=== PATIENT | male | born 2000 | race Caucasian/White ===

== ENCOUNTER 2023-05-18 09:48 | Emergency (ER) | payer OTHER, SELFPAY ==
--- NOTE | ~2023-05-18 | XR_ITS ---
EXAMINATION: XR CHEST CLINICAL INFORMATION: Chest pain. COMPARISON: None available. TECHNIQUE: 2 views of the chest were obtained. FINDINGS: No significant abnormality is noted involving the heart, lungs, mediastinum, bony thorax or soft tissues. XR/XR chest 2V IMPRESSION: No acute cardiopulmonary process.
--- NOTE | 2023-05-18 09:49 | ECG_ITS ---
Test Reason : cp Blood Pressure : / mmHG Vent. Rate : 068 BPM Atrial Rate : 068 BPM P-R Int : 154 ms QRS Dur : 086 ms QT Int : 354 ms P-R-T Axes : 059 026 030 degrees QTc Int : 376 ms Poor data quality, interpretation may be adversely affected Normal sinus rhythm with sinus arrhythmia Normal ECG No previous ECGs available Referred By: Generic ED Physician Electronically Signed By:LUIS SANDOVAL
[2023-05-18 09:54] VITALS: BP 129/71; PULSE 76; RESP 18; TEMP 37.2; O2SAT 98; BMI 29.2
--- NOTE | 2023-05-18 10:56 | ED_ITS ---
HPI - Chest Pain General Chief Complaint: Chest Pain Stated Complaint: Chest Pain Radiating to Back Time Seen by Provider: 05/18/23 10:48 Source: patient Mode of arrival: ambulatory Limitations: no limitations History of Present Illness HPI narrative: 23 yo male healthy here left-sided chest pain which is constant since yesterday with radiation to the left upper back which is worsened with breathing, movement. It is improved with sitting upright and leaning forward and worsened with lying down flat. There is no associated cough, shortness of breath, abdominal pain, fever, vomiting. Patient reports he had this pain 2 weeks ago and was seen at [facility] and had a normal EKG and was discharged home. Patient reports pain got better but now returned. He denies any recent travel, recent surgeries, recent sick contact. No leg swelling or leg pain. No history of DVT or PE Related Data Previous Rx's Medication Instructions Recorded ibuprofen 600 mg tablet 600 mg PO TID PRN pain #30 tabs 05/18/23 Allergies Allergy/AdvReac Type Severity Reaction Status Date / Time Unable to Assess Allergy Verified 05/18/23 10:55 Review of Systems Review of Systems: Yes all other systems are reviewed and are negative Constitutional: Constitutional: Reports no additional constitutional complaints, Denies body ache(s), Denies chills, Denies fever(s), Denies headache(s) and Denies weakness Eyes: Eyes: Reports no additional eye complaints and Denies change in vision ENT: Reports system reviewed and no additional complaints, except as documented, Denies dizziness, Denies headache(s), Denies nasal congestion, Denies nasal discharge and Denies neck pain Cardiovascular: Cardiovascular: Reports no additional cardiovascular complaints, Reports chest pain, Denies leg edema and Denies dyspnea Respiratory: Respiratory: Reports no additional respiratory complaints, Denies cough and Denies dyspnea Gastrointestinal: Gastrointestinal: Reports no additional gastrointestinal complaints, Denies abdominal pain, Denies diarrhea, Denies nausea and Denies vomiting Genitourinary: Genitourinary: Denies urinary incontinence Musculoskeletal: Musculoskeletal: Reports no additional musculoskeletal complaints, Reports back pain, Denies arthralgias, Denies joint swelling, Denies neck pain, Denies numbness and Denies tingling Integumentary/Breasts: Skin/Breast: Reports system reviewed and no additional complaints, except as docu and Denies rash Neurologic: Reports system reviewed and no additional complaints, except as documented, Denies Abnormal speech present, Denies dizziness, Denies headache(s), Denies numbness, Denies tingling and Denies weakness PMFSH Past Medical History Attestation statement: The following information was validated with the patient. Source: old records reviewed and nursing notes reviewed Social History Social History Alcohol intake: never Smoked in Last 30 Days: Yes Use of substances other than those prescribed or required for medical reasons: No Advance Directives: No Advance Directives Information Provided: No Physical Exam Vital Signs: Vital Signs: Last Vital Signs Temp 98.4 F 05/18/23 11:38 Pulse 65 05/18/23 11:38 Resp 16 05/18/23 11:38 BP 124/72 05/18/23 11:38 Pulse Ox 98 05/18/23 11:38 O2 Del Method Room Air 05/18/23 11:38 BMI result Body Mass Index 29.2 Const: General: cooperative, healthy appearing, comfortable and no acute distress Orientation/consciousness: patient oriented x3 Limitations: no limitations HEENT: Head: Yes normal to inspection Ears: hearing grossly normal bilaterally General nose exam: Normal external nose present Face and sinus: Yes normal facial exam Mouth: Normal oral and palatal mucosa present Throat: Yes posterior oropharynx normal Eyes: General: appearance normal, both eyes and all related structures Pupils: Equal, round and reactive pupils present Neck: Neck: Yes normal visual inspection Chest: Chest palpation & inspection: normal inspection of the chest and tenderness (left chest tender to palp, worsened with breathing.movement ) Resp: Effort & Inspection: normal respiratory effort Auscultation: clear to auscultation bilaterally Cardio: Rate: regular rate Rhythm: regular rhythm Peripheral pulses: Peripheral pulses 2+ throughout GI: Inspection: Yes normal to inspection Palpation (GI): Soft to palpation and nontender Auscultation: normal bowel sounds Back/Spine/Pelvis: Thoracic/Lumbar Spine: thoracic and lumbar spine normal to inspection Skin: General skin exam: no rashes or lesions noted Neuro: General: patient oriented x3, no focal motor deficits and normal sensation to monofilament Cranial nerves: Yes Equal, round and reactive pupils present Cognition (Neuro): normal cognition Speech: No Abnormal speech present Gait exam (Neuro): Normal gait present Motor exam (neuro): 02/04 motor strength present throughout Extrem: General: Yes normal to inspection, Yes no pedal edema and Yes no calf tenderness Course Course Course Narrative: Labs are unremarkable. EKG is nonischemic. Chest x-ray shows no acute finding. Likely musculoskeletal. Patient will be discharged home with NSAID for a few days with recommendations to follow-up with his primary care doctor outpatient. Reviewed worrisome signs and symptoms of when to return to the emergency room. Comfortable plan for discharge home. Medical Decision Making Medical Decision Making [facility] Narrative: 23 yo male with no known medical history here with complaints of left sided chest pain with radiation to the left upper back worsened with deep breathing, movement and palpation since yesterday with no other associated symptom Exam is benign. Lungs clear. Vital stable. Pain is worsened with palpation, movement the extremity and deep breathing on exam. Likely musculoskeletal Will check labs, EKG, chest X Differential Diagnosis Differential Diagnoses: The differential diagnosis associated with the presentation includes Pericarditis, myocarditis Acs-HPI is not typical for ACS, troponin is flat, EKG is not ischemic-low concern Musculoskeletal pain Low concern for PE with perc 0 Admission/Observation Consideration of admission/observation: Escalation of care including admission/observation considered Heart score is 0-need for admission for further management Lab Data [facility] Lab Attestation statement: I reviewed the patient's lab results. 05/18/23 11:16 05/18/23 11:16 Labs: Lab Results 05/18/23 05/18/23 05/18/23 Range/Units 11:16 11:16 11:16 WBC 6.6 (4.8-10.8) X10*3/uL RBC 5.19 (4.60-5.80) X10*6/uL Hgb 14.8 (14.0-18.0) g/dl Hct 44.7 (42.0-52.0) % MCV 86.1 (80.0-98.0) fL MCH 28.5 (27.0-33.0) pg MCHC 33.1 (31.0-36.0) g/dl RDW 12.9 (11.0-16.0) % Plt Count 194 (160-400) X10*3/uL MPV 10.3 (9.4-12.4) fL Immature Gran % (Auto) 0.3 (0.0-0.4) % Neut % (Auto) 55.8 (45-73) % Lymph % (Auto) 33.0 (20-40) % Reeves % (Auto) 9.2 (2-11) % Eos % (Auto) 1.4 (0-4) % Baso % (Auto) 0.3 (0-2) % Lymph # (Auto) 2.2 (1.2-4.9) X10*3/uL Reeves # (Auto) 0.6 (0.1-1.2) X10*3/uL Eos # (Auto) 0.1 (0.0-0.4) X10*3/uL Baso # (Auto) 0.0 (0.0-0.2) X10*3/uL Abs Immat Gran (auto) 0.02 (0.00-0.03) X10*3/uL Absolute Neuts (auto) 3.7 (2.0-8.3) x10*3/uL Absolute Nucleated RBC 0.000 (0.0-0.012) X10*3/uL Nucleated RBC % (auto) 0.0 (0.0-0.2) /100WBC PT 10.0 L (11.1-13.3) SEC INR 0.8 L (0.9-1.1) Sodium 142 (135-145) mmol/L Potassium 4.5 (3.3-5.1) mmol/L Chloride 108 (96-108) mmol/L Carbon Dioxide 27 (22-29) mmol/L Anion Gap 12 (12-20) BUN 12 (9-16) mg/dL Creatinine 0.77 (0.5-1.4) mg/dL Estim Creat Clear Calc 132.9 Estimated GFR > 60 Random Glucose 103 (60-115) mg/dL Calcium 9.7 (8.4-10.2) mg/dL Total Bilirubin 0.2 (0.0-1.0) mg/dL Direct Bilirubin < 0.2 (0.0-0.5) mg/dL AST 26 (5-37) U/L ALT 26 (0-40) U/L Alkaline Phosphatase 57 (39-117) U/L Troponin I High Sens (<3.5-35.0) ng/L Total Protein 7.2 (6.5-8.0) g/dL Albumin 4.2 (3.5-5.0) g/dL 05/18/23 Range/Units 11:16 WBC (4.8-10.8) X10*3/uL RBC (4.60-5.80) X10*6/uL Hgb (14.0-18.0) g/dl Hct (42.0-52.0) % MCV (80.0-98.0) fL MCH (27.0-33.0) pg MCHC (31.0-36.0) g/dl RDW (11.0-16.0) % Plt Count (160-400) X10*3/uL MPV (9.4-12.4) fL Immature Gran % (Auto) (0.0-0.4) % Neut % (Auto) (45-73) % Lymph % (Auto) (20-40) % Reeves % (Auto) (2-11) % Eos % (Auto) (0-4) % Baso % (Auto) (0-2) % Lymph # (Auto) (1.2-4.9) X10*3/uL Reeves # (Auto) (0.1-1.2) X10*3/uL Eos # (Auto) (0.0-0.4) X10*3/uL Baso # (Auto) (0.0-0.2) X10*3/uL Abs Immat Gran (auto) (0.00-0.03) X10*3/uL Absolute Neuts (auto) (2.0-8.3) x10*3/uL Absolute Nucleated RBC (0.0-0.012) X10*3/uL Nucleated RBC % (auto) (0.0-0.2) /100WBC PT (11.1-13.3) SEC INR (0.9-1.1) Sodium (135-145) mmol/L Potassium (3.3-5.1) mmol/L Chloride (96-108) mmol/L Carbon Dioxide (22-29) mmol/L Anion Gap (12-20) BUN (9-16) mg/dL Creatinine (0.5-1.4) mg/dL Estim Creat Clear Calc Estimated GFR Random Glucose (60-115) mg/dL Calcium (8.4-10.2) mg/dL Total Bilirubin (0.0-1.0) mg/dL Direct Bilirubin (0.0-0.5) mg/dL AST (5-37) U/L ALT (0-40) U/L Alkaline Phosphatase (39-117) U/L Troponin I High Sens 2.8 (<3.5-35.0) ng/L Total Protein (6.5-8.0) g/dL Albumin (3.5-5.0) g/dL Independent Interpretation I performed an independent interpretation of an: EKG and Plain X-Ray Interpretation: I independetely reviewed the EKG shows normal sinus rhythm with rate of 68, normal DC, normal QRS, normal QT I independeytelt reviewed the x-ray and agreed with radiology report Radiology Impression Discussion of test interpretation with radiology: I have reviewed the radiologist's reading. Radiologist Impression: [place] [id number] XRay Report Signed Patient: Morales Monge MR#: [id number] : 2000 Acct:[id number] Age/Sex: 23 / M ADM Date: 05/18/23 Loc: .ED Attending Dr: Ordering Physician: Nohemi Merlos NP Date of Service: 05/18/23 Procedure(s): XR chest 2V Accession Number(s): [id number] cc: Nohemi Merlos NP~ EXAMINATION: XR CHEST CLINICAL INFORMATION: Chest pain. COMPARISON: None available. TECHNIQUE: 2 views of the chest were obtained. FINDINGS: No significant abnormality is noted involving the heart, lungs, mediastinum, bony thorax or soft tissues. XR/XR chest 2V IMPRESSION: No acute cardiopulmonary process. Discharge Plan Discharge Clinical Impression: Chest pain Patient Disposition: Home, Self-Care Instructions: Chest Pain (ED) Additional Instructions: Your blood work, chest x-ray and EKG are reassuring Follow-up with primary care doctor for any continued symptoms. Return for any worsening symptoms. Prescriptions: New ibuprofen 600 mg tablet 600 mg PO TID PRN (Reason: pain) Qty: 30 0RF Referrals: Amado Olson, NAIN [Primary Care Provider] - 1 week
--- NOTE | 2023-05-18 11:01 | PC.NURSE ---
pt amb (I) gait steady to xray dept.
[2023-05-18 11:21] LABS: Basophils Percent Auto 0.3 % (0-2); Eosinophils Absolute Auto 0.1 X10*3/uL (0.0-0.4); Eosinophils Percent Auto 1.4 % (0-4); Hematocrit 44.7 % (42.0-52.0); Hemoglobin 14.8 g/dl (14.0-18.0); Imm Gran Abs Auto 0.02 X10*3/uL (0.00-0.03); Imm Gran Pct Auto 0.3 % (0.0-0.4); Lymphocytes Absolute Auto 2.2 X10*3/uL (1.2-4.9); MANUAL DIFF FLAG NO; Mean Corpuscular HGB Conc 33.1 g/dl (31.0-36.0); Mean Corpuscular Hemoglobin 28.5 pg (27.0-33.0); Mean Corpuscular Volume 86.1 fL (80.0-98.0); Mean Platelet Volume 10.3 fL (9.4-12.4); Monocytes Absolute Auto 0.6 X10*3/uL (0.1-1.2); Monocytes Percent Auto 9.2 % (2-11); Neutrophils Absolute Auto 3.7 x10*3/uL (2.0-8.3); Neutrophils Percent Auto 55.8 % (45-73); Platelet Count 194 X10*3/uL (160-400); Red Blood Count 5.19 X10*6/uL (4.60-5.80); Red Cell Distribution Width 12.9 % (11.0-16.0); White Blood Count 6.6 X10*3/uL (4.8-10.8)
[2023-05-18 11:36] LABS: Alanine Aminotransferase 26 U/L (0-40); Albumin Level 4.2 g/dL (3.5-5.0); Alkaline Phosphatase 57 U/L (39-117); Anion Gap 12 (12-20); Aspartate Amino Transferase 26 U/L (5-37); Bilirubin Direct < 0.2 mg/dL (0.0-0.5); Bilirubin Total 0.2 mg/dL (0.0-1.0); Blood Urea Nitrogen 12 mg/dL (9-16); Calcium 9.7 mg/dL (8.4-10.2); Carbon Dioxide 27 mmol/L (22-29); Chloride 108 mmol/L (96-108); Creatinine Clr Calc Pharmacy 132.9; Estimated Glomerular Filt Rate > 60; Glucose Random 103 mg/dL (60-115); Potassium 4.5 mmol/L (3.3-5.1); Sodium 142 mmol/L (135-145); Total Protein 7.2 g/dL (6.5-8.0)
[2023-05-18 11:38] VITALS: BP 124/72; PULSE 65; RESP 16; TEMP 36.9; O2SAT 98
[2023-05-18 11:42] LABS: Troponin-I High Sensitivity 2.8 ng/L (<3.5-35.0)
[2023-05-18 11:52] LABS: INTERNATIONAL NORM RATIO 0.8 (0.9-1.1)
[2023-05-18 12:23] VITALS: BP 120/77; PULSE 54; RESP 16; TEMP 36.5; O2SAT 99
== END 2023-05-18 12:38 | disposition home or self-care (01) ==
PROVIDERS: Nurse Practitioner Family; Emergency Provider Emergency Medicine; PCP Nurse Practitioner Family
DX: R07.89 Other chest pain (principal); M54.50 Low back pain, unspecified; I49.8 Other specified cardiac arrhythmias; Z79.899 Other long term (current) drug therapy
CPT/HCPCS: 36415; 71046; 80048; 80076; 84484; 85025; 85610; 93005; 99284

== ENCOUNTER 2023-06-16 10:12 | Emergency (ER) | payer OTHER, SELFPAY ==
--- NOTE | 2023-06-16 10:31 | PC.NURSE ---
no answer in [facility] x 3 , ist attempt 2-3 min after his arrival
== END 2023-06-16 10:39 | disposition left against medical advice (07) ==
PROVIDERS: Emergency Provider Emergency Medicine
DX: L98.9 Disorder of the skin and subcutaneous tissue, unspecified (principal)

== ENCOUNTER 2023-09-12 16:30 | Emergency (ER) | payer OTHER, SELFPAY ==
[2023-09-12 16:35] VITALS: BP 128/68; BP 158/85; PULSE 81; PULSE 98; RESP 18; TEMP 36.6; O2SAT 98; BMI 30.1
--- NOTE | 2023-09-12 16:42 | ECG_ITS ---
Test Reason : qtc evaluation Blood Pressure : / mmHG Vent. Rate : 068 BPM Atrial Rate : 068 BPM P-R Int : 138 ms QRS Dur : 084 ms QT Int : 362 ms P-R-T Axes : 047 029 033 degrees QTc Int : 384 ms Normal sinus rhythm Normal ECG When compared with ECG of 18-MAY-2023 09:52, No significant change was found Referred By: Jayleen Sotelo Electronically Signed By:Alexis Shukla
--- NOTE | 2023-09-12 16:45 | ED_ITS ---
HPI - Nausea/Vomiting/Diarrhea General Chief complaint: Abdominal Pain Stated complaint: COFFEE GROUND EMESIS [id number] Source: patient and old records reviewed Mode of arrival: EMS Limitations: no limitations History of Present Illness HPI Narrative: 23 yo male with PMH of cyclical vomiting syndrome and ETOH abuse thous states he hasn't been drinking for months - he notes he went to [place] on Tuesday for vomiting and was treated with fluids and nausea medications told it was THC induced though he states he hasn't smoked in 2 weeks. He notes he has been vomiting so hard it is brown in nature but no norris blood. No lower symptoms reported. He does not take PPI/H2 ignacio and no NSAIDs. He does not see a GI doctor. Was given fluids and 4mg zofran by EMS no improvement MD elicited complaint: nausea, vomiting, diarrhea and abdominal pain Pertinent past history: cyclical vomiting Onset (ago): day(s) (2) Description of vomiting: watery and coffee grounds Description of diarrhea: watery Associated nausea: Yes Associated abdominal pain: Yes Location of pain: epigastric Radiation: diffuse Pain consistency: constant Severity: moderate Quality: stabbing Exacerbating factors: eating Relieving factors: none Context: marijuana use and other (hx of similar episodes) Associated symptoms: loss of appetite, malaise and nausea/vomiting Treatment prior to arrival: fluids and other (zofran) Related Data Previous Rx's Medication Instructions Recorded ibuprofen 600 mg tablet 600 mg PO TID PRN pain #30 tabs 05/18/23 lorazepam 1 mg tablet (Ativan) 1 mg PO BID PRN anxiety #12 tabs 09/12/23 metoclopramide HCl 10 mg tablet 10 mg PO Q6H PRN nausea and 09/12/23 (Reglan) vomiting #30 tabs omeprazole 20 mg capsule,delayed 20 mg PO BID #28 caps 09/12/23 release ondansetron 4 mg disintegrating 4 mg PO Q8H PRN nausea and 09/12/23 tablet vomiting #20 tabs Allergies Allergy/AdvReac Type Severity Reaction Status Date / Time No Known Allergies Allergy Verified 09/12/23 16:41 Review of Systems 2 Review of Systems: Constitutional : No Weight loss, No Fever, No Chills ENT/Mouth : No sore throat, No Rhinorrhea Eyes: No Swelling, No Redness Cardiovascular : No Chest Pain, No SOB, NoEdema Respiratory : No Cough, No Sputum, No Wheezing Gastrointestinal : Positive Nausea, Positive Vomiting, positive Diarrhea, positive abdominal Pain, No Hematochezia, No Melena Genitourinary : No Dysuria, No Urinary Frequency, No Hematuria, No Urgency Musculoskeletal : No joint pain, No Myalgias, No Joint Swelling Skin : No Skin Lesions, No rash Neuro : No Weakness, No Numbness, No Dizziness, No Headache Psych : No Anxiety/Panic, No Depression Heme/Lymph: No Bruising, No Lymphadenopathy Endocrine : No Polyuria, No Polydipsia All other systems reviewed and are negative. Gastrointestinal: Gastrointestinal: Reports nausea PMFSH Past Medical History Attestation statement: The following information was validated with the patient. Source: old records reviewed Medical History Cyclical vomiting Social History Social History Alcohol intake: former Patient Tobacco Use Status: Tobacco use Unknown Substance Use Type: Marijuana Advance Directives: No Advance Directives Information Provided: Yes Physical Exam 2 Vital Signs: Vital Signs: Last Vital Signs Temp 97.8 F 09/12/23 16:35 Pulse 81 09/12/23 16:35 Resp 18 09/12/23 16:35 BP 158/85 H 09/12/23 16:35 Pulse Ox 98 09/12/23 16:35 O2 Del Method Room Air 09/12/23 16:35 BMI result Body Mass Index 30.1 Appearance: Alert. Oriented X3. No acute distress. Very forced dry heaving then spits up scant thick brown mucous no norris blood - his heaving is very forced in nature and starts with a forced cough Eyes: Pupils equal, round and reactive to light. ENT: Pharynx normal. Neck: Normal inspection. Neck supple. CVS: Normal heart rate and rhythm. Pulses normal. Respiratory: No respiratory distress. Breath sounds normal. Abdomen: Soft and nontender. Skin: Skin warm and dry. Normal skin color. Normal skin turgor. Extremities: No lower extremity edema. No calf ttp Neuro: Oriented X 3. No motor deficit. No sensory deficit. Course Course Course Narrative: H/H stable at 2 days of coffee ground emesis doubt sig GI bleed - + THC suspect THC induced emesis Reevaluation(s) Reevaluation #1: feels much better VS stable, at this time can be DC discussed with him and father Medications Administered Discontinued Medications Generic Name Dose Route Start Last Admin Trade Name Brenda PRN Reason Stop Dose Admin Diphenhydramine HCl 25 mg 09/12/23 16:42 09/12/23 16:54 Diphenhydramine Hcl 50 Mg/Ml Vial IVPUSH 09/12/23 16:43 25 mg ONCE ONE Administration Droperidol 1.25 mg 09/12/23 16:42 09/12/23 16:54 Droperidol 5 Mg/2 Ml Vial IVPUSH 09/12/23 16:43 1.25 mg ONCE ONE Administration Sodium Chloride 1,000 mls @ 999 mls/hr 09/12/23 16:45 09/12/23 18:45 Ns IVCONT 09/12/23 18:45 Infused .Q1H1M NICANOR Infusion Pantoprazole Sodium 40 mg 09/12/23 16:42 09/12/23 16:54 Pantoprazole Sodium 40 Mg/10 Ml Vial IVPUSH 09/12/23 16:43 40 mg ONCE ONE Administration Potassium Chloride 40 meq 09/12/23 17:52 09/12/23 18:45 Potassium Chloride Packet 20 Meq Packet PO 09/12/23 17:53 40 meq ONCE ONE Administration Medical Decision Making Medical Decision Making [facility] Narrative: 23 yo male with PMH of ETOH abuse and THC use - comes in with c/o n/v and upper abdominal pain with coffee ground emesis reported it is very scant on arrival. He has no norris blood and to be honest the wretching is forced and violent. I have ordered labs, protonix. EKG and IV benadryl and droperidol. He has had this before and I do not suspect acute intrabdominal pathology or rupture. Differential Diagnosis Differential Diagnoses: The differential diagnosis associated with the presentation includes gastritis, tarsha roldan, ETOH abuse, anxiety, THC cyclical vomiting syndrome Admission/Observation Consideration of admission/observation: Escalation of care including admission/observation considered H/H stable, VS stable, feels better can be DC home Lab Data MDM Lab Attestation statement: I reviewed the patient's lab results. 09/12/23 17:26 09/12/23 17:26 Labs: Lab Results 09/12/23 09/12/23 09/12/23 Range/Units 16:42 17:26 18:22 WBC 12.9 H (4.8-10.8) X10*3/uL RBC 5.16 (4.60-5.80) X10*6/uL Hgb 14.8 (14.0-18.0) g/dl Hct 43.4 (42.0-52.0) % MCV 84.1 (80.0-98.0) fL MCH 28.7 (27.0-33.0) pg MCHC 34.1 (31.0-36.0) g/dl RDW 12.3 (11.0-16.0) % Plt Count 219 (160-400) X10*3/uL MPV 11.1 (9.4-12.4) fL Immature Gran % (Auto) 0.4 (0.0-0.4) % Neut % (Auto) 78.8 H (45-73) % Lymph % (Auto) 12.4 L (20-40) % [place] % (Auto) 8.0 (2-11) % Eos % (Auto) 0.2 (0-4) % Baso % (Auto) 0.2 (0-2) % Lymph # (Auto) 1.6 (1.2-4.9) X10*3/uL [place] # (Auto) 1.0 (0.1-1.2) X10*3/uL Eos # (Auto) 0.0 (0.0-0.4) X10*3/uL Baso # (Auto) 0.0 (0.0-0.2) X10*3/uL Abs Immat Gran (auto) 0.05 H (0.00-0.03) X10*3/uL Absolute Neuts (auto) 10.1 H (2.0-8.3) x10*3/uL Absolute Nucleated RBC 0.000 (0.0-0.012) X10*3/uL Nucleated RBC % (auto) 0.0 (0.0-0.2) /100WBC Sodium 143 (135-145) mmol/L Potassium 3.1 L D (3.3-5.1) mmol/L Chloride 107 (96-108) mmol/L Carbon Dioxide 24 (22-29) mmol/L Anion Gap 15 (12-20) BUN 12 (9-16) mg/dL Creatinine 0.83 (0.5-1.4) mg/dL Estim Creat Clear Calc 125.0 Estimated GFR > 60 POC Glucose 123 H (60-115) mg/dL Random Glucose 115 (60-115) mg/dL Calcium 9.8 (8.4-10.2) mg/dL Magnesium 1.6 (1.6-2.6) mg/dL Total Bilirubin 0.8 (0.0-1.0) mg/dL Direct Bilirubin 0.3 (0.0-0.5) mg/dL AST 19 (5-37) U/L ALT 15 (0-40) U/L Alkaline Phosphatase 68 (39-117) U/L Total Protein 8.1 H (6.5-8.0) g/dL Albumin 4.8 (3.5-5.0) g/dL Lipase 10 (8-78) U/L Gastric Occult Blood POSITIVE (NEG) Urine Opiates Screen Not Detected (Not Detect) Urine Fentanyl Screen Not Detected (Not Detect) Ur Barbiturates Screen Not Detected (Not Detect) Ur Phencyclidine Scrn Not Detected (Not Detect) Ur Amphetamines Screen Not Detected (Not Detect) U Benzodiazepines Scrn Not Detected (Not Detect) Urine Cocaine Screen Not Detected (Not Detect) U Marijuana (THC) Screen POSITIVE H (Not Detect) Ethyl Alcohol < 10 mg/dL Independent Interpretation I performed an independent interpretation of an: EKG Interpretation: Rate: 68 Rhythm: NSR [place]: normal Normal P waves. Normal VERNELL. Normal QRS complex. ST T wave : normal no SOLA qTC: normal prior studies: no acute ischemia The study has been interpreted contemporaneously by me. . Independent Historian Clinical information obtained from an independent historian. History obtained from or confirmed by: Parent and EMS External Record Review External record reviewed: Inpatient record Prescription Management I considered prescription management with: Other Discharge Plan Discharge Clinical Impression: Cannabinoid hyperemesis syndrome, Acute hypokalemia, Acute upper GI bleed Patient Disposition: Home, Self-Care Instructions: Gastrointestinal Bleeding (ED), Hypokalemia (ED), Acute Nausea and Vomiting (ED), Cannabis Abuse (ED) Additional Instructions: return for worsening symptoms - avoid NSAIDs - aspirin, ibuprofen, motrin, aleve, naprosyn. come back for black or bloody stools. pain or inability to eat or drink. stop smoking marijuana Prescriptions: New omeprazole 20 mg capsule,delayed release(DR/EC) 20 mg PO BID Qty: 28 0RF ondansetron 4 mg tablet,disintegrating 4 mg PO Q8H PRN (Reason: nausea and vomiting) Qty: 20 0RF lorazepam [Ativan] 1 mg tablet 1 mg PO BID PRN (Reason: anxiety) Qty: 12 0RF metoclopramide HCl [Reglan] 10 mg tablet 10 mg PO Q6H PRN (Reason: nausea and vomiting) Qty: 30 0RF No Action ibuprofen 600 mg tablet 600 mg PO TID PRN (Reason: pain) Qty: 30 0RF Referrals: Morales Roldan MD [Physician] - (call to schedule appointment) Stand Alone Forms: Work/School Release
[2023-09-12] MEDS: droPERidol 5 MG/2 ML VIAL 1.25 MG IVPUSH (16:54)
[2023-09-12] MEDS: Pantoprazole Sodium 40 MG/10 ML VIAL IVPUSH (16:54)
[2023-09-12] MEDS: diphenhydrAMINE HCL 50 MG/ML VIAL 25 MG IVPUSH (16:54)
[2023-09-12] MEDS: 0.9 % Sodium Chloride 1,000 ML 999 ML IVCONT ×2 (16:55→17:23)
[2023-09-12 17:03] LABS: Glucose, Whole Blood 123 mg/dL (60-115)
[2023-09-12 17:29] LABS: MANUAL DIFF FLAG NO
[2023-09-12 17:40] LABS: Basophils Percent Auto 0.2 % (0-2); Eosinophils Percent Auto 0.2 % (0-4); Hematocrit 43.4 % (42.0-52.0); Hemoglobin 14.8 g/dl (14.0-18.0); Imm Gran Abs Auto 0.05 X10*3/uL (0.00-0.03); Imm Gran Pct Auto 0.4 % (0.0-0.4); Lymphocytes Absolute Auto 1.6 X10*3/uL (1.2-4.9); Lymphocytes Percent Auto 12.4 % (20-40); Mean Corpuscular HGB Conc 34.1 g/dl (31.0-36.0); Mean Corpuscular Hemoglobin 28.7 pg (27.0-33.0); Mean Corpuscular Volume 84.1 fL (80.0-98.0); Mean Platelet Volume 11.1 fL (9.4-12.4); Neutrophils Absolute Auto 10.1 x10*3/uL (2.0-8.3); Neutrophils Percent Auto 78.8 % (45-73); Platelet Count 219 X10*3/uL (160-400); Red Blood Count 5.16 X10*6/uL (4.60-5.80); Red Cell Distribution Width 12.3 % (11.0-16.0); White Blood Count 12.9 X10*3/uL (4.8-10.8)
[2023-09-12 17:47] LABS: Alanine Aminotransferase 15 U/L (0-40); Albumin Level 4.8 g/dL (3.5-5.0); Alkaline Phosphatase 68 U/L (39-117); Anion Gap 15 (12-20); Aspartate Amino Transferase 19 U/L (5-37); Bilirubin Direct 0.3 mg/dL (0.0-0.5); Bilirubin Total 0.8 mg/dL (0.0-1.0); Blood Urea Nitrogen 12 mg/dL (9-16); Calcium 9.8 mg/dL (8.4-10.2); Carbon Dioxide 24 mmol/L (22-29); Chloride 107 mmol/L (96-108); Estimated Glomerular Filt Rate > 60; Ethanol < 10 mg/dL; Glucose Random 115 mg/dL (60-115); Lipase 10 U/L (8-78); Magnesium 1.6 mg/dL (1.6-2.6); Potassium 3.1 mmol/L (3.3-5.1); Sodium 143 mmol/L (135-145); Total Protein 8.1 g/dL (6.5-8.0)
[2023-09-12 18:33] LABS: GASOB Int Neg Ctl Valid YES; GASOB Int Pos Ctl Valid YES; Occult Blood Gastric POSITIVE (NEG)
[2023-09-12 18:38] LABS: Amphetamine Screen Urine Not Detected (Not Detect); Barbiturates, Urine Not Detected (Not Detect); Benzodiazepines Screen Urine Not Detected (Not Detect); Cannabinoid Screen Urine POSITIVE (Not Detect); Cocaine Screen Urine Not Detected (Not Detect); Fentanyl, urine Not Detected (Not Detect); Opiate Screen Urine Not Detected (Not Detect); Phencyclidine Screen Urine Not Detected (Not Detect)
[2023-09-12] MEDS: Potassium Chloride Packet 20 MEQ PACKET 40 MEQ PO (18:45)
--- NOTE | 2023-09-12 18:48 | PC.NURSE ---
started coughing up thick brown mucous. pt reports that he has hx of gi bleed and required blood transfusion. he denies substance use or drinking alcohol. denies headache/dizziness. pt arrived with 20g in r hand, 20g inserted in r wrist. labs drawn, meds given as documented.
[2023-09-12 19:45] VITALS: BP 148/79; PULSE 98; RESP 18; O2SAT 97
[2023-09-12] MEDS: LORazepam 1 MG TABLET PO (19:50)
== END 2023-09-12 19:56 | disposition home or self-care (01) ==
PROVIDERS: Emergency Provider Emergency Medicine
DX: F12.10 Cannabis abuse, uncomplicated (principal); R11.2 Nausea with vomiting, unspecified; E87.6 Hypokalemia; K92.2 Gastrointestinal hemorrhage, unspecified; Z79.899 Other long term (current) drug therapy
CPT/HCPCS: 36415; 80048; 80076; 80307; 82271; 82947; 83690; 83735; 85025; 93005; 96361; 96374; 96375; 99284; C9113; J1200; J1790

== ENCOUNTER → 2023-09-12 16:42 | Outpatient (BNV) | payer OTHER, SELFPAY | PROVIDERS: Emergency Provider Emergency Medicine; Visit Provider Internal Medicine Cardiovascular Disease | DX: K92.2 Gastrointestinal hemorrhage, unspecified (principal); R11.15 Cyclical vomiting syndrome unrelated to migraine | CPT/HCPCS: 93010 ==

== ENCOUNTER 2023-09-21 04:46 | Emergency (ER) | payer OTHER, SELFPAY ==
--- NOTE | 2023-09-21 04:58 | ED_ITS ---
HPI - Nausea/Vomiting/Diarrhea General Chief complaint: Nausea/Vomiting/Diarrhea Stated complaint: n/v Time Seen by Provider: 09/21/23 04:53 Source: patient and old records reviewed Mode of arrival: EMS Limitations: no limitations History of Present Illness HPI Narrative: 23 yo male with hx of cyclical vomiting suspect it was due to THC seen her 09/12 for same - sent home with nausea medications and PPI - as well as anxiolytic. He returns today with c/o n/v/d and abdominal pain after eating salmon. He notes he had been doing well. No THC use. MD elicited complaint: nausea, vomiting, diarrhea and abdominal pain Pertinent past history: cyclical vomiting Onset (ago): hour(s) (few) Description of vomiting: watery Description of diarrhea: watery Associated nausea: Yes Associated abdominal pain: Yes Location of pain: epigastric Radiation: diffuse Pain consistency: constant Severity: moderate Quality: stabbing Exacerbating factors: eating Relieving factors: none Context: possible food poisoning Associated symptoms: loss of appetite, malaise and nausea/vomiting Related Data Previous Rx's Medication Instructions Recorded ibuprofen 600 mg tablet 600 mg PO TID PRN pain #30 tabs 05/18/23 lorazepam 1 mg tablet (Ativan) 1 mg PO BID PRN anxiety #12 tabs 09/12/23 metoclopramide HCl 10 mg tablet 10 mg PO Q6H PRN nausea and 09/12/23 (Reglan) vomiting #30 tabs omeprazole 20 mg capsule,delayed 20 mg PO BID #28 caps 09/12/23 release ondansetron 4 mg disintegrating 4 mg PO Q8H PRN nausea and 09/12/23 tablet vomiting #20 tabs ondansetron 4 mg disintegrating 4 mg PO Q8H PRN nausea and 09/21/23 tablet vomiting #20 tabs Allergies Allergy/AdvReac Type Severity Reaction Status Date / Time No Known Allergies Allergy Verified 09/21/23 05:24 Review of Systems 2 Review of Systems: Constitutional : No Weight loss, No Fever, No Chills ENT/Mouth : No sore throat, No Rhinorrhea Eyes: No Swelling, No Redness Cardiovascular : No Chest Pain, No SOB, NoEdema Respiratory : No Cough, No Sputum, No Wheezing Gastrointestinal : Positive Nausea, Positive Vomiting, positive Diarrhea, positive abdominal Pain, No Hematochezia, No Melena Genitourinary : No Dysuria, No Urinary Frequency, No Hematuria, No Urgency Musculoskeletal : No joint pain, No Myalgias, No Joint Swelling Skin : No Skin Lesions, No rash Neuro : No Weakness, No Numbness, No Dizziness, No Headache Psych : No Anxiety/Panic, No Depression Heme/Lymph: No Bruising, No Lymphadenopathy Endocrine : No Polyuria, No Polydipsia All other systems reviewed and are negative. Gastrointestinal: Gastrointestinal: Reports nausea PMFSH Past Medical History Attestation statement: The following information was validated with the patient. Source: old records reviewed Medical History Cyclical vomiting Social History Social History Alcohol intake: former Patient Tobacco Use Status: Tobacco use Unknown Substance Use Type: Marijuana Physical Exam 2 Vital Signs: Vital Signs: Last Vital Signs Temp 98.4 F 09/21/23 05:19 Pulse 113 H 09/21/23 05:19 Resp 22 H 09/21/23 05:19 BP 174/97 H 09/21/23 05:19 Pulse Ox 98 09/21/23 05:19 O2 Del Method Room Air 09/21/23 05:19 BMI result Body Mass Index 30.1 Appearance: Alert. Oriented X3. No acute distress.Anxious, dry heaving Eyes: Pupils equal, round and reactive to light. ENT: Pharynx normal. Neck: Normal inspection. Neck supple. CVS: Normal heart rate and rhythm. Pulses normal. Respiratory: No respiratory distress. Breath sounds normal. Abdomen: Soft and mild diffuse ttp no rebound or guarding Skin: Skin warm and dry. Normal skin color. Normal skin turgor. Extremities: No lower extremity edema. No calf ttp Neuro: Oriented X 3. No motor deficit. No sensory deficit. Course Course Course Narrative: signed out to Dr. Caldwell pending PO challenge, patient currently asleep Medications Administered Discontinued Medications Generic Name Dose Route Start Last Admin Trade Name Freq PRN Reason Stop Dose Admin Diphenhydramine HCl 25 mg 09/21/23 04:54 09/21/23 05:14 Diphenhydramine Hcl 50 Mg/Ml Vial IVPUSH 09/21/23 04:55 25 mg ONCE ONE Administration Droperidol 1.25 mg 09/21/23 04:54 09/21/23 05:14 Droperidol 5 Mg/2 Ml Vial IVPUSH 09/21/23 04:55 1.25 mg ONCE ONE Administration Famotidine 20 mg 09/21/23 04:54 09/21/23 05:14 Famotidine/Pf 20 Mg/2 Ml Vial IVPUSH 09/21/23 04:55 20 mg ONCE ONE Administration Sodium Chloride 1,000 mls @ 999 mls/hr 09/21/23 05:00 09/21/23 05:14 Ns IV 09/21/23 06:00 999 mls/hr .Q1H1M NICANOR Administration Medical Decision Making Medical Decision Making MDM Narrative: 23 yo male with hx of cyclical vomiting in setting of THC use - states he has not used it. He did eat salmon tonight afterwards started with n/v/d. He also notes he felt constipated for a few days so before then he also took a laxative so everything culminated at once. He is presenting similarly as last time. Will obtain labs, hydrate, anti-emetics and observe until improved. Differential Diagnosis Differential Diagnoses: The differential diagnosis associated with the presentation includes food toxicity, cyclical vomiting Admission/Observation Consideration of admission/observation: Escalation of care including admission/observation considered Lab Data [facility] Lab Attestation statement: I reviewed the patient's lab results. 09/21/23 05:27 09/21/23 05:27 Labs: Lab Results 09/21/23 Range/Units 05:27 WBC 11.7 H (4.8-10.8) X10*3/uL RBC 4.94 (4.60-5.80) X10*6/uL Hgb 13.9 L (14.0-18.0) g/dl Hct 41.2 L (42.0-52.0) % MCV 83.4 (80.0-98.0) fL MCH 28.1 (27.0-33.0) pg MCHC 33.7 (31.0-36.0) g/dl RDW 12.3 (11.0-16.0) % Plt Count 231 (160-400) X10*3/uL MPV 10.5 (9.4-12.4) fL Immature Gran % (Auto) 0.3 (0.0-0.4) % Neut % (Auto) 86.4 H (45-73) % Lymph % (Auto) 8.4 L (20-40) % Harvey % (Auto) 4.5 (2-11) % Eos % (Auto) 0.1 (0-4) % Baso % (Auto) 0.3 (0-2) % Lymph # (Auto) 1.0 L (1.2-4.9) X10*3/uL [place] # (Auto) 0.5 (0.1-1.2) X10*3/uL Eos # (Auto) 0.0 (0.0-0.4) X10*3/uL Baso # (Auto) 0.0 (0.0-0.2) X10*3/uL Abs Immat Gran (auto) 0.03 (0.00-0.03) X10*3/uL Absolute Neuts (auto) 10.1 H (2.0-8.3) x10*3/uL Absolute Nucleated RBC 0.000 (0.0-0.012) X10*3/uL Nucleated RBC % (auto) 0.0 (0.0-0.2) /100WBC Sodium 143 (135-145) mmol/L Potassium 4.1 D (3.3-5.1) mmol/L Chloride 111 H (96-108) mmol/L Carbon Dioxide 21 L (22-29) mmol/L Anion Gap 15 (12-20) BUN 11 (9-16) mg/dL Creatinine 0.79 (0.5-1.4) mg/dL Estim Creat Clear Calc 131.3 Estimated GFR > 60 Random Glucose 142 H (60-115) mg/dL Calcium 10.0 (8.4-10.2) mg/dL Magnesium 1.8 (1.6-2.6) mg/dL Total Bilirubin 0.5 (0.0-1.0) mg/dL Direct Bilirubin 0.2 (0.0-0.5) mg/dL AST 19 (5-37) U/L ALT 12 (0-40) U/L Alkaline Phosphatase 61 (39-117) U/L Total Protein 7.6 (6.5-8.0) g/dL Albumin 4.6 (3.5-5.0) g/dL Lipase 10 (8-78) U/L Ethyl Alcohol < 10 mg/dL Independent Historian Clinical information obtained from an independent historian. History obtained from or confirmed by: EMS External Record Review External record reviewed: Inpatient record Prescription Management I considered prescription management with: Other Discharge Plan Discharge Clinical Impression: Cyclical vomiting Patient Disposition: Still a Patient Instructions: Acute Nausea and Vomiting (ED), Acute Abdominal Pain (ED) Additional Instructions: continue on with plan to call and follow up with GI doctor. eat a bland diet and advance slowly over 48 hours. return for worsening symptoms. avoid marijuana Prescriptions: New ondansetron 4 mg tablet,disintegrating 4 mg PO Q8H PRN (Reason: nausea and vomiting) Qty: 20 0RF No Action ibuprofen 600 mg tablet 600 mg PO TID PRN (Reason: pain) Qty: 30 0RF omeprazole 20 mg capsule,delayed release(DR/EC) 20 mg PO BID Qty: 28 0RF ondansetron 4 mg tablet,disintegrating 4 mg PO Q8H PRN (Reason: nausea and vomiting) Qty: 20 0RF lorazepam [Ativan] 1 mg tablet 1 mg PO BID PRN (Reason: anxiety) Qty: 12 0RF metoclopramide HCl [Reglan] 10 mg tablet 10 mg PO Q6H PRN (Reason: nausea and vomiting) Qty: 30 0RF Stand Alone Forms: Work/School Release
[2023-09-21] MEDS: diphenhydrAMINE HCL 50 MG/ML VIAL 25 MG IVPUSH (05:14)
[2023-09-21] MEDS: Famotidine/PF 20 MG/2 ML VIAL IVPUSH (05:14)
[2023-09-21] MEDS: droPERidol 5 MG/2 ML VIAL 1.25 MG IVPUSH (05:14)
[2023-09-21] MEDS: 0.9 % Sodium Chloride 1,000 ML 999 ML IV ×2 (05:14→06:40)
[2023-09-21 05:19] VITALS: BP 174/97; PULSE 113; RESP 22; TEMP 36.9; O2SAT 98; BMI 30.1
[2023-09-21 05:31] LABS: MANUAL DIFF FLAG NO
[2023-09-21 05:32] LABS: Basophils Percent Auto 0.3 % (0-2); Eosinophils Percent Auto 0.1 % (0-4); Hematocrit 41.2 % (42.0-52.0); Hemoglobin 13.9 g/dl (14.0-18.0); Imm Gran Abs Auto 0.03 X10*3/uL (0.00-0.03); Imm Gran Pct Auto 0.3 % (0.0-0.4); Lymphocytes Percent Auto 8.4 % (20-40); Mean Corpuscular HGB Conc 33.7 g/dl (31.0-36.0); Mean Corpuscular Hemoglobin 28.1 pg (27.0-33.0); Mean Corpuscular Volume 83.4 fL (80.0-98.0); Mean Platelet Volume 10.5 fL (9.4-12.4); Monocytes Absolute Auto 0.5 X10*3/uL (0.1-1.2); Monocytes Percent Auto 4.5 % (2-11); Neutrophils Absolute Auto 10.1 x10*3/uL (2.0-8.3); Neutrophils Percent Auto 86.4 % (45-73); Platelet Count 231 X10*3/uL (160-400); Red Blood Count 4.94 X10*6/uL (4.60-5.80); Red Cell Distribution Width 12.3 % (11.0-16.0); White Blood Count 11.7 X10*3/uL (4.8-10.8)
[2023-09-21 05:46] LABS: Alanine Aminotransferase 12 U/L (0-40); Albumin Level 4.6 g/dL (3.5-5.0); Alkaline Phosphatase 61 U/L (39-117); Anion Gap 15 (12-20); Aspartate Amino Transferase 19 U/L (5-37); Bilirubin Direct 0.2 mg/dL (0.0-0.5); Bilirubin Total 0.5 mg/dL (0.0-1.0); Blood Urea Nitrogen 11 mg/dL (9-16); Carbon Dioxide 21 mmol/L (22-29); Chloride 111 mmol/L (96-108); Creatinine Clr Calc Pharmacy 131.3; Estimated Glomerular Filt Rate > 60; Ethanol < 10 mg/dL; Glucose Random 142 mg/dL (60-115); Lipase 10 U/L (8-78); Magnesium 1.8 mg/dL (1.6-2.6); Potassium 4.1 mmol/L (3.3-5.1); Sodium 143 mmol/L (135-145); Total Protein 7.6 g/dL (6.5-8.0)
--- NOTE | 2023-09-21 07:29 | PC.NURSE ---
PO challenge given to patient and tolerating well at this time
--- NOTE | 2023-09-21 07:30 | PC.NURSE ---
Assumed care of pt at this time.
[2023-09-21 08:16] VITALS: BP 118/65; PULSE 100; RESP 16; TEMP 37.2; O2SAT 97
== END 2023-09-21 08:56 | disposition home or self-care (01) ==
PROVIDERS: Emergency Medicine; Emergency Provider Emergency Medicine Emergency Medical Services
DX: F12.19 Cannabis abuse with unspecified cannabis-induced disorder (principal); R11.15 Cyclical vomiting syndrome unrelated to migraine; R11.2 Nausea with vomiting, unspecified; Z79.899 Other long term (current) drug therapy
CPT/HCPCS: 36415; 80048; 80076; 80307; 83690; 83735; 85025; 96361; 96374; 96375; 99284; J1200; J1790

== ENCOUNTER 2023-09-24 15:33 | Emergency (ER) | payer OTHER, SELFPAY ==
--- NOTE | ~2023-09-24 | CT_ITS ---
EXAMINATION: CT ABDOMEN AND PELVIS WITHOUT CONTRAST CLINICAL INFORMATION: Assess for kidneys stones COMPARISON: None available. TECHNIQUE: Multidetector volumetric imaging was performed from the superior aspect of the liver through the pubic symphysis. Sagittal and coronal reformatted images were obtained on the technologist's workstation. This CT examination was performed using dose optimization techniques as appropriate, variously including the following: *Automated exposure control *Adjustment of mA and/or kV according to patient size (this includes techniques or standardized protocols for targeted exams where dose is matched to indication/reason for exam; i.e. extremities or head) *Use of iterative reconstruction technique DLP: 520 mGy-cm FINDINGS: LUNG BASES: The visualized lung bases are unremarkable. LIVER, GALLBLADDER, AND BILIARY TREE: The liver is normal in size, shape, and attenuation. No focal hepatic lesion or biliary ductal dilatation is present. The gallbladder is unremarkable with no evidence of radiopaque gallstones, gallbladder wall thickening, or obvious pericholecystic inflammatory changes. PANCREAS: Unremarkable. SPLEEN: Unremarkable. ADRENAL GLANDS: Unremarkable. KIDNEYS AND URETERS: The kidneys are normal in size, shape, and attenuation. No hydronephrosis, hydroureter, or calculi seen. No perinephric stranding. BLADDER: Unremarkable. GASTROINTESTINAL TRACT: The small and large bowel are unremarkable. The appendix is unremarkable. ABDOMINAL WALL: No significant hernia is appreciated. LYMPH NODES: Normal. VASCULAR: Unremarkable. PELVIC VISCERA: Unremarkable. OSSEOUS STRUCTURES: Unremarkable. CT/CT abdomen pelvis wo IV con IMPRESSION: No significant abnormality. Fleischner guidelines were followed.
--- NOTE | ~2023-09-24 | XR_ITS ---
EXAMINATION: XR ABDOMEN KUB CLINICAL INDICATION: SBO. Abdominal pain COMPARISON: None available. TECHNIQUE: AP view of the abdomen. FINDINGS: The bowel gas pattern is nonspecific. Scattered stool in the colon. There is no organomegaly. No radiopaque calculi. No gross bony abnormality. XR/XR KUB IMPRESSION: Mild constipation. No acute process seen
[2023-09-24 15:42] VITALS: BP 131/72; BP 142/84; PULSE 101; PULSE 119; RESP 18; TEMP 37; O2SAT 98; BMI 28.3
[2023-09-24 17:24] LABS: MANUAL DIFF FLAG NO
[2023-09-24 17:25] LABS: Basophils Percent Auto 0.2 % (0-2); Hematocrit 38.3 % (42.0-52.0); Hemoglobin 13.2 g/dl (14.0-18.0); Imm Gran Abs Auto 0.01 X10*3/uL (0.00-0.03); Imm Gran Pct Auto 0.2 % (0.0-0.4); Lymphocytes Absolute Auto 0.3 X10*3/uL (1.2-4.9); Lymphocytes Percent Auto 5.6 % (20-40); Mean Corpuscular HGB Conc 34.5 g/dl (31.0-36.0); Mean Corpuscular Hemoglobin 28.5 pg (27.0-33.0); Mean Corpuscular Volume 82.7 fL (80.0-98.0); Mean Platelet Volume 10.6 fL (9.4-12.4); Monocytes Absolute Auto 0.9 X10*3/uL (0.1-1.2); Monocytes Percent Auto 14.8 % (2-11); Neutrophils Absolute Auto 4.7 x10*3/uL (2.0-8.3); Neutrophils Percent Auto 79.2 % (45-73); Platelet Count 185 X10*3/uL (160-400); Red Blood Count 4.63 X10*6/uL (4.60-5.80); Red Cell Distribution Width 12.2 % (11.0-16.0); White Blood Count 5.9 X10*3/uL (4.8-10.8)
[2023-09-24 17:38] LABS: Alanine Aminotransferase 11 U/L (0-40); Albumin Level 4.4 g/dL (3.5-5.0); Alkaline Phosphatase 60 U/L (39-117); Anion Gap 16 (12-20); Aspartate Amino Transferase 17 U/L (5-37); Bilirubin Total 0.4 mg/dL (0.0-1.0); Blood Urea Nitrogen 3 mg/dL (9-16); Calcium 9.3 mg/dL (8.4-10.2); Carbon Dioxide 20 mmol/L (22-29); Chloride 106 mmol/L (96-108); Estimated Glomerular Filt Rate > 60; Glucose Random 89 mg/dL (60-115); Magnesium 1.7 mg/dL (1.6-2.6); Potassium 3.7 mmol/L (3.3-5.1); Sodium 138 mmol/L (135-145); Total Protein 7.2 g/dL (6.5-8.0)
[2023-09-24 18:01] LABS: Influenza A PCR NEGATIVE (Negative); Influenza B PCR NEGATIVE (Negative); Resp Syncy Virus RNA Qual PCR NEGATIVE (Negative); SARS COV2 PCR INHOUSE POSITIVE (Negative)
--- NOTE | 2023-09-24 18:16 | ED_ITS ---
HPI - General Adult General Chief complaint: Nausea/Vomiting/Diarrhea Stated complaint: NAUSEA/CARCAMO,H/O HYPEREMESIS D/T MARIJUANA PER EMS Time Seen by Provider: 09/24/23 17:59 Source: patient Mode of arrival: ambulatory Limitations: no limitations History of Present Illness HPI narrative: 23 yold male with pmh of cylic vomitting presents to the ED for nausea and vomitting for a couple of dyas. Patient states also having chills. patient denies any dysuria, hematuria, flank pain, fever, chills, or abdominal pain. Patietn dnies any recent trauma. patietn states having bodyaches. patient states no recent trauma. Related Data Previous Rx's Medication Instructions Recorded ibuprofen 600 mg tablet 600 mg PO TID PRN pain #30 tabs 05/18/23 lorazepam 1 mg tablet (Ativan) 1 mg PO BID PRN anxiety #12 tabs 09/12/23 metoclopramide HCl 10 mg tablet 10 mg PO Q6H PRN nausea and 09/12/23 (Reglan) vomiting #30 tabs omeprazole 20 mg capsule,delayed 20 mg PO BID #28 caps 09/12/23 release ondansetron 4 mg disintegrating 4 mg PO Q8H PRN nausea and 09/12/23 tablet vomiting #20 tabs lorazepam 1 mg tablet 1 mg PO TID PRN anxiety #10 tabs 09/21/23 ondansetron 4 mg disintegrating 4 mg PO Q8H PRN nausea and 09/21/23 tablet vomiting #20 tabs Allergies Allergy/AdvReac Type Severity Reaction Status Date / Time No Known Allergies Allergy Verified 09/21/23 05:24 [facility] Past Medical History Medical History Cyclical vomiting Social History Social History Alcohol intake: former Patient Tobacco Use Status: Tobacco use Unknown Use of substances other than those prescribed or required for medical reasons: No Substance Use Type: Marijuana Advance Directives: No Advance Directives Information Provided: No Physical Exam ED Vital Signs: Vital Signs - 24 hr 09/24/23 15:42 09/24/23 18:31 09/24/23 23:46 Temperature 98.6 F 99.6 F 98.2 F Pulse Rate 119 H 112 H 106 H Respiratory Rate 18 16 17 Blood Pressure 142/84 H 136/86 144/81 H Pulse Oximetry 98 99 96 Oxygen Delivery Method Room Air Room Air Room Air BMI result Body Mass Index 28.3 Const General: cooperative, healthy appearing, comfortable, no acute distress, well developed, alert, awake and Physically active Orientation/consciousness: oriented to person, oriented to place, oriented to time and patient oriented x3 HENMT Head: Yes normal to inspection, Yes No palpable skull fracture present, Yes normocephalic and Yes atraumatic Throat: Yes posterior oropharynx normal, Yes tonsils normal and Yes uvula midline Eyes General: appearance normal, both eyes and all related structures Neck Neck: Yes normal visual inspection, Yes full ROM, Yes no lymphadenopathy, Yes no meningeal signs, Yes trachea midline, Yes supple, No anterior neck swelling and No tender Chest Chest palpation & inspection: normal inspection of the chest and normal palpation of entire chest wall Resp Effort & Inspection: normal respiratory effort and able to speak in complete sentences Auscultation: clear to auscultation bilaterally Cardio Jugular venous distension: no JVD Heart sounds: S1 normal heart sound present and S2 normal heart sound present GI Inspection: Yes normal to inspection Palpation (GI): Soft to palpation, not firm, nontender, no guarding and not rigid General: Yes no CVA tenderness Back/Spine/Pelvis Back: no CVA tenderness and No back tenderness Skin General skin exam: no rashes or lesions noted, elasticity normal and turgor normal Neuro General: oriented to person, oriented to place, oriented to time, patient oriented x3, gait normal, tone normal, moves all extremities, Normal light touch and pain sensation, no meningeal signs, no focal motor deficits, CN's II-XI intact bilaterally and normal sensation to monofilament Extrem General: Yes normal to inspection and Yes full ROM Psych Appearance: grossly normal, well kempt and not disheveled Medications Administered Discontinued Medications Generic Name Dose Route Start Last Admin Trade Name Freq PRN Reason Stop Dose Admin Sodium Chloride 1,000 mls @ 999 mls/hr 09/24/23 18:26 09/24/23 19:40 Ns IV 09/24/23 19:26 Infused .Q1H1M STA Infusion Sodium Chloride 1,000 mls @ 999 mls/hr 09/24/23 18:30 09/24/23 19:40 Ns IV 09/24/23 19:30 Infused .Q1H1M NICANOR Infusion Ketorolac Tromethamine 30 mg 09/24/23 18:38 09/24/23 18:43 Ketorolac Tromethamine 30 Mg/Ml Vial IVPUSH 09/24/23 18:39 30 mg ONCE ONE Administration Ondansetron HCl 4 mg 09/24/23 18:32 09/24/23 18:43 Ondansetron Hcl 4 Mg/2 Ml Vial IVPUSH 09/24/23 18:33 4 mg ONCE ONE Administration Medical Decision Making Medical Decision Making [facility] Narrative: 23-year-old male with 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 Patient does states constipation. Patient admits to chills. Patient denies any chest pain or shortness of breath. Initial labs normal. Patient positive COVID. Will give IV fluids and Toradol for body aches. Will give Zofran for nausea. Waiting for UA. 22:54pm: UA shows slight blood patient was sent for abdominal CT scan which came back normal. Symptoms due to COVID. Patient is safe for discharge. patient received 2 L of fluid Differential Diagnosis Differential Diagnoses: The differential diagnosis associated with the presentation includes ( COVID, cholecystitis, pancreatitis, kidney stones, constipation, vomiting) Admission/Observation Consideration of admission/observation: Escalation of care including admission/observation considered Lab Data [facility] Lab Attestation statement: I reviewed the patient's lab results. 09/24/23 17:18 09/24/23 17:18 Labs: Lab Results 09/24/23 09/24/23 Range/Units 17:18 19:48 WBC 5.9 (4.8-10.8) X10*3/uL RBC 4.63 (4.60-5.80) X10*6/uL Hgb 13.2 L (14.0-18.0) g/dl Hct 38.3 L (42.0-52.0) % MCV 82.7 (80.0-98.0) fL MCH 28.5 (27.0-33.0) pg MCHC 34.5 (31.0-36.0) g/dl RDW 12.2 (11.0-16.0) % Plt Count 185 (160-400) X10*3/uL MPV 10.6 (9.4-12.4) fL Immature Gran % (Auto) 0.2 (0.0-0.4) % Neut % (Auto) 79.2 H (45-73) % Lymph % (Auto) 5.6 L (20-40) % Bee % (Auto) 14.8 H (2-11) % Eos % (Auto) 0.0 (0-4) % Baso % (Auto) 0.2 (0-2) % Lymph # (Auto) 0.3 L (1.2-4.9) X10*3/uL Bee # (Auto) 0.9 (0.1-1.2) X10*3/uL Eos # (Auto) 0.0 (0.0-0.4) X10*3/uL Baso # (Auto) 0.0 (0.0-0.2) X10*3/uL Abs Immat Gran (auto) 0.01 (0.00-0.03) X10*3/uL Absolute Neuts (auto) 4.7 (2.0-8.3) x10*3/uL Absolute Nucleated RBC 0.000 (0.0-0.012) X10*3/uL Nucleated RBC % (auto) 0.0 (0.0-0.2) /100WBC Sodium 138 (135-145) mmol/L Potassium 3.7 (3.3-5.1) mmol/L Chloride 106 (96-108) mmol/L Carbon Dioxide 20 L (22-29) mmol/L Anion Gap 16 (12-20) BUN 3 L (9-16) mg/dL Creatinine 0.77 (0.5-1.4) mg/dL Estim Creat Clear Calc 131.0 Estimated GFR > 60 Random Glucose 89 (60-115) mg/dL Calcium 9.3 D (8.4-10.2) mg/dL Magnesium 1.7 (1.6-2.6) mg/dL Total Bilirubin 0.4 (0.0-1.0) mg/dL AST 17 (5-37) U/L ALT 11 (0-40) U/L Alkaline Phosphatase 60 (39-117) U/L Total Protein 7.2 (6.5-8.0) g/dL Albumin 4.4 (3.5-5.0) g/dL Urine Color Yellow Urine Appearance Clear Urine pH 5.5 (5.0-9.0) Ur Specific [place] 1.010 (1.005-1.025) Urine Protein Negative (Neg-Trace) mg/dL Urine Glucose (UA) Negative (Negative) mg/dL Urine Ketones >=160 (Negative) mg/dL Urine Blood Trace H (Negative) Urine Nitrite Negative (Negative) Ur Leukocyte Esterase Negative (Negative) Urine RBC 0-2 (0-2) /HPF Urine WBC 0-5 (0-5) /HPF Ur Squamous Epith Cells 0-2 (0-2) /HPF Urine Bacteria None Seen (None Seen) Hyaline Casts 0-2 (0-2) /LPF Urine Opiates Screen Not Detected (Not Detect) Urine Fentanyl Screen Not Detected (Not Detect) Ur Barbiturates Screen Not Detected (Not Detect) Ur Phencyclidine Scrn Not Detected (Not Detect) Ur Amphetamines Screen Not Detected (Not Detect) U Benzodiazepines Scrn Not Detected (Not Detect) Urine Cocaine Screen Not Detected (Not Detect) U Marijuana (THC) Screen POSITIVE H (Not Detect) Influenza Type A (PCR) NEGATIVE (Negative) Influenza Type B (PCR) NEGATIVE (Negative) RSV RNA Qual (PCR) NEGATIVE (Negative) SARS-CoV-2 RNA (RT-PCR) POSITIVE A (Negative) Independent Interpretation I performed an independent interpretation of an: CT Scan Radiology Impression Discussion of test interpretation with radiology: I have reviewed the radiologist's reading. Independent Historian Clinical information obtained from an independent historian. History obtained from or confirmed by: Parent (Father) External Record Review External record reviewed: Other ( prior visit) Prescription Management I considered prescription management with: Other Discharge Plan Discharge Clinical Impression: COVID-19 Patient Disposition: Home, Self-Care Instructions: COVID-19 (Coronavirus Disease 2019) (ED) Additional Instructions: return to the ED for any chest pain, shortness of breath, nausea, vomiting, weakness, dizziness, leg swelling, calf pain, coughing up blood, or any other concerning symptoms. Please follow-up with primary care provider. CT scan came back normal. Prescriptions: No Action ibuprofen 600 mg tablet 600 mg PO TID PRN (Reason: pain) Qty: 30 0RF omeprazole 20 mg capsule,delayed release(DR/EC) 20 mg PO BID Qty: 28 0RF ondansetron 4 mg tablet,disintegrating 4 mg PO Q8H PRN (Reason: nausea and vomiting) Qty: 20 0RF lorazepam [Ativan] 1 mg tablet 1 mg PO BID PRN (Reason: anxiety) Qty: 12 0RF metoclopramide HCl [Reglan] 10 mg tablet 10 mg PO Q6H PRN (Reason: nausea and vomiting) Qty: 30 0RF ondansetron 4 mg tablet,disintegrating 4 mg PO Q8H PRN (Reason: nausea and vomiting) Qty: 20 0RF lorazepam 1 mg tablet 1 mg PO TID PRN (Reason: anxiety) Qty: 10 0RF Rx Instructions: Patient may ask for partial fill Stand Alone Forms: Work/School Release Interventions: ED Discharge Assessment Last Done: 09/24/23 23:46 Discharge Date/Time: 09/24/23 23:47 Print Language: Maltese
[2023-09-24 18:31] VITALS: BP 136/86; PULSE 112; RESP 16; TEMP 37.6; O2SAT 99
[2023-09-24] MEDS: 0.9 % Sodium Chloride 1,000 ML 999 ML IV ×2 (18:35→18:43)
[2023-09-24] MEDS: Ketorolac Tromethamine 30 MG/ML VIAL IVPUSH (18:43)
[2023-09-24] MEDS: ondansetron HCL 4 MG/2 ML VIAL IVPUSH (18:43)
--- NOTE | 2023-09-24 19:20 | PC.NURSE ---
this rn assumed care of pt. pt currently has fluids running at this time, no acute distress noted. no new orders at this time.
[2023-09-24 19:56] LABS: Appearance Urine Clear; Color Urine Yellow; Glucose Urine UA Negative (Negative); Leukocyte Esterase Urine Negative (Negative); Nitrite Urine Negative (Negative); PH 5.5 (5.0-9.0); UMIC TRIGGER UACC YES; Urine Blood Trace (Negative); Urine Ketones >=160 mg/dL (Negative); Urine Protein Negative (Neg-Trace)
[2023-09-24 20:04] LABS: Amphetamine Screen Urine Not Detected (Not Detect); Bacteria Urine None Seen (None Seen); Barbiturates, Urine Not Detected (Not Detect); Benzodiazepines Screen Urine Not Detected (Not Detect); Cannabinoid Screen Urine POSITIVE (Not Detect); Cocaine Screen Urine Not Detected (Not Detect); Fentanyl, urine Not Detected (Not Detect); Hyaline Casts Urine 0-2 /LPF (0-2); Opiate Screen Urine Not Detected (Not Detect); Phencyclidine Screen Urine Not Detected (Not Detect); RBC Urine 0-2 /HPF (0-2); Squamous Epithelial Cell Urine 0-2 /HPF (0-2); WBC Urine 0-5 /HPF (0-5)
[2023-09-24 23:46] VITALS: BP 144/81; PULSE 106; RESP 17; TEMP 36.8; O2SAT 96
== END 2023-09-24 23:47 | disposition home or self-care (01) ==
PROVIDERS: Physician Assistant; Physician Assistant Medical; Emergency Provider Emergency Medicine
DX: U07.1 COVID-19 (principal)
CPT/HCPCS: 0241U; 74018; 74176; 80053; 80307; 81001; 81003; 83735; 85025; 96361; 96374; 96375; 99284; J1885; J2405

== ENCOUNTER 2023-09-29 07:44 | Outpatient (AMB) | payer OTHER, SELFPAY ==
[2023-09-29 08:05] VITALS: BP 118/74; PULSE 76; O2SAT 96; BMI 31.0
--- NOTE | 2023-09-29 08:05 | A.OFFPC_ITS ---
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 He was recently seen in the emergency room 5 days prior to arrival with symptoms of abdomen pain, vomiting, nausea. Patient has history of emergency room visits for similar problems. While at the emergency room he had a CT scan and x-ray performed, the CT scan was unremarkable in the x-ray demonstrated mild constipation. He has been diagnosed with cyclical vomiting syndrome, brought on after inhalation of marijuana. At discharge he was given ondansetron, which the patient has been using with good effect. He was also found to be COVID positive. Today the patient states that he has since quit smoking marijuana. He still has dull pain in the epigastric area, but states he recently started taking omeprazole with little effect. Denies any nausea, vomiting, fever, chest pain, shortness a breath, or diarrhea. He states that he is still mildly constipated, and would like to try to fix the problem with diet improvement. He states that since he quit smoking marijuana he has had difficulty sleeping. [facility] Medical History (Updated 09/29/23 @ 09:01 by JOHANNA Burnett) Anxiety Cyclical vomiting Family History Mother Substance use disorder Sister Substance use disorder Sister Substance use disorder Maternal Grandmother Lung cancer Social History Housing: House Alcohol intake: former Patient Tobacco Use Status: Former Tobacco user e-Cigarette/Vaping Use: Former Use Substance Use Type: Marijuana service: No Current occupational status: employed Cognitive needs: No Hearing needs: No Vision needs: No Questionnaire PHQ-9 Over the last 2 weeks, how often have you been bothered by any of the following problems? 1. Little interest or pleasure in doing things: not at all 2. Feeling down, depressed, or hopeless: not at all 3. Trouble falling or staying asleep, or sleeping too much: nearly every day 4. Feeling tired or having little energy: more than half the days 5. Poor appetite or overeating: more than half the days 6. Feeling bad about yourself - or that you are a failure or have let yourself or your family down: not at all 7. Trouble concentrating on things, such as reading the newspaper or watching television: not at all 8. Moving or speaking so slowly that other people could have noticed. Or the opposite - being so fidgety or restless that you have been moving around a lot more than usual: not at all 9. Thoughts that you would be better off or of hurting yourself in some way: not at all Total score: 7 Depression Screening Interpretation: Negative Depression Screening Done: Yes Source: Developed by Drs. Morales Koo, Janina Naranjo, Laron Prado and colleagues, with an educational carlos from [employer]. Thrive Questionnaire Date Thrive assessed: 09/29/23 I am a: Patient What is your living situation today?: I have a steady place to live Within the past 12 months, did the food you bought not last and you didn't have the money to get more?: Never true Within the past 12 months, did you worry whether your food would run out before you got money to buy more?: Never true Do you have trouble paying for medicines?: No Do you have trouble getting transportation to medical appointments?: No Do you have trouble paying your heating and electricity bill?: No Do you have trouble taking care of your child, family member or friend?: No Do you have trouble with day-to-day activities such as bathing, preparing meals, shopping, managing finances, etc.?: No Are you currently unemployed and looking for a job?: No Are you interested in more education?: No AUDIT C Alcohol Use Questionnaire (AUDIT-C) 1. How often do you have a drink containing alcohol?: Never Total Score: 0 JORDON-7 AMB Questionnaire JORDON-7 Date JORDON - 7 assessed: 09/29/23 Feeling nervous, anxious, or on edge: 0 = Not at all Not being able to stop or control worryin = Not at all Worrying too much about different things: 0 = Not at all Trouble relaxin = Nearly every day Being so restless that it is hard to sit still: 2 = More than half the days Becoming easily annoyed or irritable: 2 = More than half the days Feeling afraid as if something awful might happen: 2 = More than half the days Total JORDON-7 score (0-4 normal; 5-9 mild; 10-14 moderate; 15-21 severe): 9 Source: Developed by Drs. Morales Koo, Janina Naranjo, Laron Prado and colleagues, with an educational carlos from [employer]. JORDON-7 Assessment Billing JORDON-7 Assessment Tool: JORDON-7 Assessment 32959 Review of Systems Const Details: Constitutional : No Weight loss, No Fever, No Chills, Admits some Fatigue, No Malaise Eyes: No Eye Pain, No Swelling, No Redness Cardiovascular : No Chest Pain, No SOB, No Dyspnea on Exertion, No Orthopnea, No Edema, No Palpitations Respiratory : No Cough, No Sputum, No Wheezing Gastrointestinal : No Nausea, No Vomiting, No Diarrhea, Admits Constipation, No abdominal Pain, No Hematochezia, No Melena Genitourinary : No Dysuria, No Urinary Frequency, No Hematuria, Musculoskeletal : No joint pain, No Myalgias, No Joint Swelling Skin : No Skin Lesions, No rash Neuro : No Weakness, No Numbness, No Dizziness, No Headache Psych : No Anxiety/Panic, No Depression Heme/Lymph: No Bruising, No Bleeding,No Lymphadenopathy Endocrine : No Polyuria, No Polydipsia All other systems reviewed and are negative Physical exam (Primary Care) Vital Signs: Last Vital Signs Pulse 76 09/29/23 08:05 BP 118/74 09/29/23 08:05 Pulse Ox 96 09/29/23 08:05 Oxygen Delivery Method Room Air 09/29/23 08:05 Care Plan Goal for BP management: Vital signs have been reviewed and are stable. BMI result Body Mass Index 31.0 Tobacco/Smoking Status: Tobacco use Status Tobacco use date assessed 09/29/23 09/29/23 08:13 Patient Tobacco Use Status Former Tobacco user 09/29/23 08:13 e-Cigarette/Vaping Use Former Use 09/29/23 08:13 Depression Screening Interpretation: Negative Const General: cooperative and no acute distress Orientation/consciousness: patient oriented x3 Limitations: no limitations HENMT Head: Yes normal to inspection and Yes normocephalic Eyes General: appearance normal, both eyes and all related structures Pupils: Equal, round and reactive pupils present Neck Neck: Yes normal visual inspection, Yes full ROM and Yes no lymphadenopathy Resp Auscultation: clear to auscultation bilaterally Cardio Rate: regular rate Rhythm: regular rhythm Heart sounds: S1 normal heart sound present and S2 normal heart sound present GI Inspection: Yes normal to inspection Palpation (GI): Soft to palpation, nontender, no hepatomegaly and No Rebound tenderness present Percussion: Yes normal to percussion Auscultation: normal bowel sounds Rectal Exam - Male: Yes deferred Neuro General: patient oriented x3 and CN's II-XI intact bilaterally Cranial nerves: Yes Equal, round and reactive pupils present and Yes Bilaterally intact EOM present Cognition (Neuro): normal cognition Psych Thought content: Normal thought content present Insight: Good insight present (Psych) Judgement: Good judgement present (Psych) Results Reviewed Results Reviewed: Will call patient with lab results Assessment and Plan Assessment & Plan (1) Insomnia: Comment: Patient states that he has been having difficulty getting sleep. He is not sure if it is due to anxiety or fits a rebound issue after quitting marijuana. Does indicate that he would like therapy if this continues. States that he was discharged with Lorazepam which had good effect, but that he is use all them. Will give hydroxyzine to be taken at night as needed. Patient educated on side effects of the medication how to take it properly. Code(s): G47.00 - Insomnia, unspecified Qualifiers: Insomnia type: unspecified Qualified Code(s): G47.00 - Insomnia, unspecified (2) Constipation: Comment: While in the emergency room patient had KUB x-ray which did not demonstrated mild constipation. Patient states he still having mild constipation symptoms. He also had occult blood stool which was positive in the ER. Will refer to GI. Patient has been instructed that he can take Metamucil as directed. Code(s): K59.00 - Constipation, unspecified Qualifiers: Constipation type: unspecified constipation type Qualified Code(s): K59.00 - Constipation, unspecified Plan Patient will follow-up in 3 months for physical exam. Will get labs drawn prior to the appointment. Coding Level of Care Code Est Pt Level 3 (53012) Diagnoses Insomnia, unspecified type G47.00 Insomnia type: unspecified Constipation, unspecified constipation type K59.00 Constipation type: unspecified constipation type Additional Codes JORDON-7 Assessment Billing - JORDON-7 Assessment Tool: JORDON-7 Assessment 34890 ([id number]) Time Spent (min) 30
== END 2023-09-29 09:01 | disposition home or self-care (01) ==
PROVIDERS: Visit Provider Nurse Practitioner Primary Care
DX: G47.00 Insomnia, unspecified (principal); K59.00 Constipation, unspecified
CPT/HCPCS: 99213

== ENCOUNTER 2023-10-24 15:01 | Emergency (ER) | payer OTHER, SELFPAY ==
[2023-10-24 15:33] VITALS: BP 134/90; PULSE 80; RESP 16; TEMP 36.9; O2SAT 98; BMI 30.1
--- NOTE | 2023-10-24 15:36 | ED_ITS ---
HPI - General Adult General Chief complaint: Abdominal Pain Stated complaint: Lower abd pain Time Seen by Provider: 10/24/23 19:27 Source: patient Mode of arrival: ambulatory Limitations: no limitations History of Present Illness HPI narrative: Patient is a 23 year old assigned male at with a history of CHS presenting to the emergency department today with lower abdominal pain. Patient states that he is having intermittent lower abdominal pain for the last few months. Patient states that he doesn't presently have any pain. Patient denies any dizziness, lightheadedness, nausea, vomiting, fever, chills, blurry vision, double vision, loss of vision, chest pain, difficulty breathing, shortness of breath, back pain, night sweats, pain with urination, increased urinary frequency, increased urinary urgency, blood in his urine or stool, syncope or a near syncopal episode, recent trauma or falls, bowel incontinence, bladder incontinence, bowel retention, bladder retention, or any other complaints at this time. Onset (ago): month(s) Location: abdomen Severity: mild Pain Consistency: intermittent Relieving factors: none Exacerbating factors: none Associated symptoms: denies other symptoms Treatments prior to arrival: none Related Data Previous Rx's Medication Instructions Recorded ondansetron 4 mg disintegrating 4 mg PO Q8H PRN nausea and 09/21/23 tablet vomiting #20 tabs hydroxyzine HCl 25 mg tablet 25 mg PO BEDTIME #30 tabs 09/29/23 Allergies Allergy/AdvReac Type Severity Reaction Status Date / Time No Known Allergies Allergy Verified 10/24/23 15:32 Review of Systems 2 Constitutional: Constitutional: Reports no additional constitutional complaints, Denies chills, Denies fever(s) and Denies night sweats Eyes: Eyes: Reports no additional eye complaints, Denies blurry vision, Denies change in vision, Denies diplopia, Denies eye discharge, Denies loss of vision and Denies eye pain ENT: Denies dizziness Cardiovascular: Cardiovascular: Reports no additional cardiovascular complaints, Denies chest pain, Denies lightheadedness, Denies Loss of Consciousness and Denies dyspnea Respiratory: Respiratory: Reports no additional respiratory complaints and Denies dyspnea Gastrointestinal: Gastrointestinal: Reports no additional gastrointestinal complaints, Reports abdominal pain (intermittently), Denies melena, Denies hematochezia, Denies change in bowel habits and Denies change in stool character Genitourinary: Genitourinary: Reports no additional male genitourinary complaints, Denies hematuria, Denies oliguria, Denies difficulty urinating, Denies dysuria, Denies urinary frequency, Denies urinary hesitancy, Denies urinary incontinence and Denies urinary urgency Musculoskeletal: Musculoskeletal: Reports no additional musculoskeletal complaints, Denies numbness and Denies tingling Neurologic: Denies dizziness, Denies loss of vision, Denies numbness and Denies tingling Psychiatric: Psychiatric: Reports no additional psychiatric complaints Endocrine: Endocrine: Reports no additional endocrine complaints Hematologic/Lymphatic: Hematologic/Lymphatic: Reports no additional hematologic/lymphatic complaints Allergic/Immunologic: Allergic/Immunologic: Reports no additional allergic/immunologic complaints [facility] Past Medical History Attestation statement: The following information was validated with the patient. Source: old records reviewed and nursing notes reviewed Medical History Anxiety Cyclical vomiting Family History Family History Mother Substance use disorder Sister Substance use disorder Sister Substance use disorder Maternal Grandmother Lung cancer Social History Social History Housing: House Alcohol intake: former Patient Tobacco Use Status: Former Tobacco user e-Cigarette/Vaping Use: Former Use Substance Use Type: Marijuana Advance Directives: No Advance Directives Information Provided: No service: No Current occupational status: employed Cognitive needs: No Hearing needs: No Vision needs: No Physical Exam ED Vital Signs: Vital Signs - 24 hr 10/24/23 15:33 Temperature 98.4 F Pulse Rate 80 Respiratory Rate 16 Blood Pressure 134/90 H Pulse Oximetry 98 Oxygen Delivery Method Room Air BMI result Body Mass Index 30.1 Const General: cooperative, no acute distress, alert and awake Nutritional Appearance: well nourished Orientation/consciousness: patient oriented x3 Limitations: no limitations HENMT Head: Yes normal to inspection and Yes atraumatic Ears: hearing grossly normal bilaterally and external ears normal General nose exam: Normal external nose present, no nasal discharge noted and no epistaxis Face and sinus: Yes normal facial exam, No abrasion and No laceration Mouth: Normal oral and palatal mucosa present, no drooling and no muffled voice Eyes General: appearance normal, both eyes and all related structures Periorbital: periorbital findings normal Eyelids: Yes eyelids normal Conjunctivae: conjunctivae normal Pupils: Equal, round and reactive pupils present EOM: EOMs intact bilaterally Neck Neck: Yes normal visual inspection, Yes full ROM and Yes no lymphadenopathy Chest Chest palpation & inspection: normal inspection of the chest Resp Effort & Inspection: normal respiratory effort and able to speak in complete sentences GI Inspection: Yes normal to inspection Palpation (GI): Soft to palpation, not firm, nontender and no guarding Neuro General: patient oriented x3 and moves all extremities Cranial nerves: Yes Equal, round and reactive pupils present Cognition (Neuro): normal cognition Motor exam (neuro): 5/5 motor strength present throughout Sensory Exam: Normal double simultaneous stimulation for sensation Coordination: [id number] test normal Extrem General: Yes normal to inspection, Yes full ROM and Yes capillary refill normal Psych Appearance: grossly normal Mental Status: mental status grossly normal Affect: normal affect Attitude: cooperative Thought process: Normal thought process present Thought content: Normal thought content present Insight: Good insight present (Psych) Course Course Course Narrative: RME performed by Mena Son PA-C. Patient is a 23 year old assigned male at presenting to the emergency department with intermittent low abdominal pain. Patient states that he had this before and was told that it was CHS but now he has been sober from marijuana for 2 months continues to have the pain intermittently. Detailed physical exam and review of systems are deferred to the meat grinder. Labs ordered. Patient placed back in the waiting room pending room availability and results. Medical Decision Making Medical Decision Making MDM Narrative: Patient is a 23 year old assigned male at with a history of CHS presenting to the emergency department today with intermittent abdominal pain. Patient's physical exam was unremarkable. Patient's blood work was unremarkable. Patient's urine showed no acute process. Patient's EKG was unremarkable. I explained my physical exam findings as well as all test results to the patient. I answered all questions asked by the patient. Patient has an endoscope scheduled for next week. I stressed the importance of the patient taking his medication as prescribed. I stressed the importance of the patient following up with his primary care provider and GI specialist. I stressed the importance of the patient returning to the emergency department immediately if his symptoms were to worsen or if he were to develop any dizziness, shortness of breath, difficulty breathing, chest pain, blurry vision, loss of vision, nausea, vomiting, abdominal pain, fever, chills, back pain, or any other complaints. Patient verbalized agreement and understanding with this treatment plan and discharge. Differential Diagnosis Differential Diagnoses: The differential diagnosis associated with the presentation includes Abdominal pain Admission/Observation Consideration of admission/observation: Escalation of care including admission/observation considered Patient would have been admitted to the hospital had his work up had any findings where hospital admission was appropriate and his clinical presentation warranted hospital admission. Lab Data [facility] Lab Attestation statement: I reviewed the patient's lab results. My interpretation of these results are in the [facility] Rationale portion of this note. 10/24/23 16:53 10/24/23 16:53 Labs: Lab Results 10/24/23 10/24/23 10/24/23 Range/Units 16:53 16:54 17:04 WBC 6.7 (4.8-10.8) X10*3/uL RBC 5.55 (4.60-5.80) X10*6/uL Hgb 15.8 (14.0-18.0) g/dl Hct 46.2 D (42.0-52.0) % MCV 83.2 (80.0-98.0) fL MCH 28.5 (27.0-33.0) pg MCHC 34.2 (31.0-36.0) g/dl RDW 12.7 (11.0-16.0) % Plt Count 226 (160-400) X10*3/uL MPV 10.5 (9.4-12.4) fL Immature Gran % (Auto) 0.1 (0.0-0.4) % Neut % (Auto) 63.9 (45-73) % Lymph % (Auto) 25.7 (20-40) % [place] % (Auto) 9.3 (2-11) % Eos % (Auto) 0.7 (0-4) % Baso % (Auto) 0.3 (0-2) % Lymph # (Auto) 1.7 (1.2-4.9) X10*3/uL [place] # (Auto) 0.6 (0.1-1.2) X10*3/uL Eos # (Auto) 0.1 (0.0-0.4) X10*3/uL Baso # (Auto) 0.0 (0.0-0.2) X10*3/uL Abs Immat Gran (auto) 0.01 (0.00-0.03) X10*3/uL Absolute Neuts (auto) 4.3 (2.0-8.3) x10*3/uL Absolute Nucleated RBC 0.000 (0.0-0.012) X10*3/uL Nucleated RBC % (auto) 0.0 (0.0-0.2) /100WBC Sodium 143 (135-145) mmol/L Potassium 4.0 (3.3-5.1) mmol/L Chloride 105 (96-108) mmol/L Carbon Dioxide 26 (22-29) mmol/L Anion Gap 16 (12-20) BUN 14 (9-16) mg/dL Creatinine 0.78 (0.5-1.4) mg/dL Estim Creat Clear Calc 133.0 Estimated GFR > 60 Random Glucose 93 (60-115) mg/dL Calcium 10.1 D (8.4-10.2) mg/dL Magnesium 1.9 (1.6-2.6) mg/dL Total Bilirubin 0.6 (0.0-1.0) mg/dL AST 17 (5-37) U/L ALT 16 (0-40) U/L Alkaline Phosphatase 74 (39-117) U/L Total Protein 8.2 H (6.5-8.0) g/dL Albumin 4.7 (3.5-5.0) g/dL Urine Color Yellow Urine Appearance Clear Urine pH 6.5 (5.0-9.0) Ur Specific [place] >= 1.030 H (1.005-1.025) Urine Protein Trace (Neg-Trace) mg/dL Urine Glucose (UA) Negative (Negative) mg/dL Urine Ketones Trace (Negative) mg/dL Urine Blood Negative (Negative) Urine Nitrite Negative (Negative) Ur Leukocyte Esterase Trace H (Negative) Urine RBC 0-2 (0-2) /HPF Urine WBC 0-5 (0-5) /HPF Ur Squamous Epith Cells 0-2 (0-2) /HPF Urine Bacteria None Seen (None Seen) Hyaline Casts 0-2 (0-2) /LPF COVID-19 (RASHID) Negative (Negative) COVID-19 Clin Com See Note Discharge Plan Discharge Clinical Impression: Abdominal pain Patient Disposition: Home, Self-Care Instructions: Abdominal Pain (ED) Additional Instructions: Follow up with your primary care provider. Keep your appointment with your GI doctor for your endoscopy next week. Return to the emergency department immediately if your symptoms worsen or if you develop any dizziness, shortness of breath, difficulty breathing, chest pain, blurry vision, loss of vision, nausea, vomiting, abdominal pain, fever, chills, back pain, or any other complaints. Prescriptions: No Action ondansetron 4 mg tablet,disintegrating 4 mg PO Q8H PRN (Reason: nausea and vomiting) Qty: 20 0RF hydroxyzine HCl 25 mg tablet 25 mg PO BEDTIME Qty: 30 0RF Referrals: [facility] [place] [facility] [place]] (Call to establish and follow up with a primary care provider. If you already have a primary care provider, please follow up with them.) [facility] [place] [facility] [[place] [facility]] (Call to establish and follow up with a primary care provider. If you already have a primary care provider, please follow up with them.) [facility] [place] [facility] [Provider Group] (Call to establish and follow up with a primary care provider. If you already have a primary care provider, please follow up with them.) Interventions: ED Discharge Assessment Last Done: 10/24/23 19:27 Discharge Date/Time: 10/24/23 19:50 Print Language: Bengali
[2023-10-24 17:08] LABS: MANUAL DIFF FLAG NO
[2023-10-24 17:11] LABS: Appearance Urine Clear; Color Urine Yellow; Glucose Urine UA Negative (Negative); Leukocyte Esterase Urine Trace (Negative); Nitrite Urine Negative (Negative); PH 6.5 (5.0-9.0); Specific Gravity - Urine >= 1.030 (1.005-1.025); UMIC TRIGGER UACC YES; Urine Blood Negative (Negative); Urine Ketones Trace mg/dL (Negative); Urine Protein Trace mg/dL (Neg-Trace)
[2023-10-24 17:13] LABS: Basophils Percent Auto 0.3 % (0-2); Eosinophils Absolute Auto 0.1 X10*3/uL (0.0-0.4); Eosinophils Percent Auto 0.7 % (0-4); Hematocrit 46.2 % (42.0-52.0); Hemoglobin 15.8 g/dl (14.0-18.0); Imm Gran Abs Auto 0.01 X10*3/uL (0.00-0.03); Imm Gran Pct Auto 0.1 % (0.0-0.4); Lymphocytes Absolute Auto 1.7 X10*3/uL (1.2-4.9); Lymphocytes Percent Auto 25.7 % (20-40); Mean Corpuscular HGB Conc 34.2 g/dl (31.0-36.0); Mean Corpuscular Hemoglobin 28.5 pg (27.0-33.0); Mean Corpuscular Volume 83.2 fL (80.0-98.0); Mean Platelet Volume 10.5 fL (9.4-12.4); Monocytes Absolute Auto 0.6 X10*3/uL (0.1-1.2); Monocytes Percent Auto 9.3 % (2-11); Neutrophils Absolute Auto 4.3 x10*3/uL (2.0-8.3); Neutrophils Percent Auto 63.9 % (45-73); Platelet Count 226 X10*3/uL (160-400); Red Blood Count 5.55 X10*6/uL (4.60-5.80); Red Cell Distribution Width 12.7 % (11.0-16.0); White Blood Count 6.7 X10*3/uL (4.8-10.8)
[2023-10-24 17:24] LABS: Alanine Aminotransferase 16 U/L (0-40); Albumin Level 4.7 g/dL (3.5-5.0); Alkaline Phosphatase 74 U/L (39-117); Anion Gap 16 (12-20); Aspartate Amino Transferase 17 U/L (5-37); Bilirubin Total 0.6 mg/dL (0.0-1.0); Blood Urea Nitrogen 14 mg/dL (9-16); Calcium 10.1 mg/dL (8.4-10.2); Carbon Dioxide 26 mmol/L (22-29); Chloride 105 mmol/L (96-108); Estimated Glomerular Filt Rate > 60; Glucose Random 93 mg/dL (60-115); Magnesium 1.9 mg/dL (1.6-2.6); Sodium 143 mmol/L (135-145); Total Protein 8.2 g/dL (6.5-8.0)
[2023-10-24 17:32] LABS: Bacteria Urine None Seen (None Seen); Hyaline Casts Urine 0-2 /LPF (0-2); RBC Urine 0-2 /HPF (0-2); Squamous Epithelial Cell Urine 0-2 /HPF (0-2); WBC Urine 0-5 /HPF (0-5)
[2023-10-24 17:34] LABS: COVID-19 Test Negative (Negative); IDNOW Serial# 152EDE1D
== END 2023-10-24 19:50 | disposition home or self-care (01) ==
LOC: HO.ED 19:50
PROVIDERS: Physician Assistant Medical; Emergency Provider Emergency Medicine
DX: R10.30 Lower abdominal pain, unspecified (principal); Z11.52 Encounter for screening for COVID-19
CPT/HCPCS: 80053; 81001; 83735; 85025; 87635; 99282; 99283

== ENCOUNTER 2023-11-04 14:37 | Outpatient (AMB) | payer OTHER, SELFPAY ==
[2023-11-04 15:08] VITALS: BP 136/86; PULSE 97; BMI 30.8
--- NOTE | 2023-11-04 15:08 | MHC.OFFVIS ---
Intake Vital Signs 11/04/23 15:08 Height 5 ft 3 in Weight 174 lb 2.643 oz BMI 30.8 BP 136/86 Blood Pressure Location Lt brachial Position Sitting Pulse 97 Intake Visit Reasons: Cyclical vomiting syndrome/constipation Intake Note: Patient presents to in office visit today as a new patient for cyclical vomiting syndrome and constipation. CC: Patient reports he has being having abdominal pain for years, and GERD. Per patient the Omeprazole is the only thing that helps with symptoms. He also reports concerns for UTI due to urinary frequency and painful urination. Per patient the vomiting has resolved and states he was having cannabinoid hyperermesis syndrome. [employer] Required: No Accompanied by: Self / Same As Patient Allergies No Known Allergies Allergy (Verified 11/07/23 10:30) HPI Cyclical vomiting syndrome/constipation HPI Details 23-year-old male with no significant medical history is here today for initial consultation. Patient was sent to us by PCP. Seen in the ER several times in the last few months for epigastric pain, nausea and vomiting. 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 Patient reports that he stopped using marijuana even though he has been smoking for very long time and he no longer has nausea or vomiting, however he does report epigastric pain postprandially. Patient reports depending on what he eats he will have also postprandial abdominal bloating. Patient denies any fever chills, denies being around anyone with similar symptoms. Patient denies melena, hematochezia, unintentional weight loss or ribbon like stools. Patient reports constipation. He was placed on omeprazole in the ED, however he ran out of the medication and was told that he can stop. [facility] Medical History Lyme disease Anxiety Cyclical vomiting Surgical History H/O shoulder surgery Family History Mother Substance use disorder Sister Substance use disorder Sister Substance use disorder Maternal Aunt Breast cancer Paternal Grandmother Lung cancer Social History Housing: House Alcohol intake: current Alcohol intake frequency: does not drink Patient Tobacco Use Status: Former Tobacco user e-Cigarette/Vaping Use: Former Use Substance Use Type: Marijuana service: No Current occupational status: employed Cognitive needs: No Hearing needs: No Vision needs: No Review of Systems Const Denies weight gain and Denies weight loss ENT Reports no additional complaints, Denies dysphagia and Denies odynophagia Card Reports no additional complaints Resp Reports no additional complaints GI Reports abdominal pain (Epigastric), Denies belching, Denies melena, Reports bloating, Reports constipation, Denies dysphagia, Denies excessive flatus, Reports dyspepsia, Reports heartburn, Denies diarrhea, Denies loose stools, Denies nausea, Denies odynophagia and Denies vomiting Reports no additional complaints Musc Reports no additional complaints Neuro Reports no additional complaints Psych Reports no additional complaints Endo Reports no additional complaints Physical Exam Vital Signs: Last Vital Signs Pulse 97 11/04/23 15:08 BP 136/86 11/04/23 15:08 BMI result Body Mass Index 30.8 Results Reviewed Results Reviewed: CT SCAN SEPTEMBER OF 2023 FROM ED VISIT: FINDINGS: LUNG BASES: The visualized lung bases are unremarkable. LIVER, GALLBLADDER, AND BILIARY TREE: The liver is normal in size, shape, and attenuation. No focal hepatic lesion or biliary ductal dilatation is present. The gallbladder is unremarkable with no evidence of radiopaque gallstones, gallbladder wall thickening, or obvious pericholecystic inflammatory changes. PANCREAS: Unremarkable. SPLEEN: Unremarkable. ADRENAL GLANDS: Unremarkable. KIDNEYS AND URETERS: The kidneys are normal in size, shape, and attenuation. No hydronephrosis, hydroureter, or calculi seen. No perinephric stranding. BLADDER: Unremarkable. GASTROINTESTINAL TRACT: The small and large bowel are unremarkable. The appendix is unremarkable. ABDOMINAL WALL: No significant hernia is appreciated. LYMPH NODES: Normal. VASCULAR: Unremarkable. PELVIC VISCERA: Unremarkable. OSSEOUS STRUCTURES: Unremarkable. CT/CT abdomen pelvis wo IV con IMPRESSION: No significant abnormality. Assessment & Plan Assessment & Plan (1) Cyclical vomiting: Code(s): R11.15 - Cyclical vomiting syndrome unrelated to migraine (2) Constipation: Code(s): K59.00 - Constipation, unspecified Qualifiers: Constipation type: unspecified constipation type Qualified Code(s): K59.00 - Constipation, unspecified (3) Postprandial epigastric pain: Code(s): R10.13 - Epigastric pain (4) Postprandial abdominal bloating: Code(s): R14.0 - Abdominal distension (gaseous) Plan Will check transglutaminase. Patient can start taking pantoprazole in the morning half an hour before breakfast and as needed famotidine at bedtime. Discussed with patient avoiding dietary triggers and late night snacking. Staying upright for minimum 3 hours after meals discussed with patient. Patient reports constipation and occasional loose stools. Will start him on MiraLax and he can continue taking stool softeners. Patient has not noticed any blood in the stool, however had positive gastric occult blood found in the ER when patient was vomiting. Patient had forceful vomiting after eating salmon. Possible trace of blood. Patient denies coffee-ground vomit at that time. Patient's stool was never tested for blood. Patient will return in the office in 4 weeks, sooner on as needed basis. If patient continues with symptoms we will send him for upper endoscopy to further evaluate for gastritis, esophagitis, duodenitis, gastric or peptic ulcers, Brown's, H pylori. Patient is agreeable to this plan and verbalizes understanding of instructions. He was given the opportunity to ask questions and all questions answered. Thank you for allowing me to participate in his care Orders: Orders Transglutaminase IgA 11/07/23 R10.9 - Unspecified abdominal pain Transglutaminase Ab IgG 11/07/23 R10.9 - Unspecified abdominal pain Medications: New pantoprazole take one tablet half an hour before breakfast 40 mg PO DAILY 30 tabs 2RF K21.9 - Gastro-esophageal reflux disease without esophagitis famotidine 40 mg PO BEDTIME 30 tabs 3RF K21.9 - Gastro-esophageal reflux disease without esophagitis polyethylene glycol 3350 (Miralax) 17 grams PO DAILY 510 grams 2RF Coding Level of Care Code New Pt Level 4 (91358) Diagnoses Cyclical vomiting R11.15 Constipation, unspecified constipation type K59.00 Constipation type: unspecified constipation type Postprandial epigastric pain R10.13 Postprandial abdominal bloating R14.0 Time Spent (min) 45 Comment 30 minutes spent with patient and additional 15 minutes spent reviewing his records
== END 2023-11-04 16:22 | disposition home or self-care (01) ==
PROVIDERS: Visit Provider Nurse Practitioner Family
DX: R11.15 Cyclical vomiting syndrome unrelated to migraine (principal); K59.00 Constipation, unspecified; R10.13 Epigastric pain; R14.0 Abdominal distension (gaseous)
CPT/HCPCS: 99204

== ENCOUNTER → 2023-11-04 14:37 | Outpatient (BNVA) | payer OTHER, SELFPAY | PROVIDERS: Visit Provider Nurse Practitioner Family | DX: K59.00 Constipation, unspecified (principal); R11.15 Cyclical vomiting syndrome unrelated to migraine; R10.13 Epigastric pain; R14.0 Abdominal distension (gaseous) | CPT/HCPCS: 99202 ==

== ENCOUNTER 2023-11-07 10:12 | Emergency (ER) | payer OTHER, SELFPAY ==
--- NOTE | ~2023-11-07 | CT_ITS ---
EXAMINATION: CT ABDOMEN AND PELVIS WITH CONTRAST CLINICAL INFORMATION: 23-year-old male with right lower quadrant tenderness COMPARISON: 09/24/2023 TECHNIQUE: Multidetector volumetric images were obtained from the superior aspect of the liver through the pubic symphysis following administration 85 mL of Omnipaque 350 intravenous contrast. Sagittal and coronal reformatted images were obtained on the technologist's workstation. Oral contrast: No This CT examination was performed using dose optimization techniques as appropriate, variously including the following: *Automated exposure control *Adjustment of mA and/or kV according to patient size (this includes techniques or standardized protocols for targeted exams where dose is matched to indication/reason for exam; i.e. extremities or head) *Use of iterative reconstruction technique DLP: 485 mGy-cm FINDINGS: LUNG BASES: The visualized lung bases are unremarkable. LIVER, GALLBLADDER, AND BILIARY TREE: The liver is normal in size, shape, and attenuation. No focal hepatic lesion or biliary ductal dilatation is present. The gallbladder is unremarkable with no evidence of radiopaque gallstones, gallbladder wall thickening, or obvious pericholecystic inflammatory changes. PANCREAS: Unremarkable. SPLEEN: Unremarkable. ADRENAL GLANDS: Unremarkable. KIDNEYS AND URETERS: The kidneys are normal in size, shape, and attenuation. No hydronephrosis, hydroureter, or calculi seen. No perinephric stranding. BLADDER: Unremarkable. GASTROINTESTINAL TRACT: The small and large bowel are unremarkable. The appendix is unremarkable. ABDOMINAL WALL: No significant hernia is appreciated. LYMPH NODES: Normal. VASCULAR: Unremarkable. PELVIC VISCERA: Unremarkable. OSSEOUS STRUCTURES: Unremarkable. CT/CT abdomen pelvis w IV con IMPRESSION: No significant abnormality. Fleischner guidelines were followed.
[2023-11-07 10:27] VITALS: BP 150/97; PULSE 72; RESP 18; TEMP 37.4; O2SAT 96; BMI 31.3
[2023-11-07 10:47] LABS: MANUAL DIFF FLAG NO
[2023-11-07 10:49] LABS: Basophils Percent Auto 0.3 % (0-2); Eosinophils Absolute Auto 0.1 X10*3/uL (0.0-0.4); Eosinophils Percent Auto 0.9 % (0-4); Hematocrit 44.5 % (42.0-52.0); Imm Gran Abs Auto 0.01 X10*3/uL (0.00-0.03); Imm Gran Pct Auto 0.2 % (0.0-0.4); Lymphocytes Absolute Auto 1.6 X10*3/uL (1.2-4.9); Lymphocytes Percent Auto 24.2 % (20-40); Mean Corpuscular HGB Conc 33.7 g/dl (31.0-36.0); Mean Corpuscular Hemoglobin 28.6 pg (27.0-33.0); Mean Corpuscular Volume 84.9 fL (80.0-98.0); Mean Platelet Volume 10.1 fL (9.4-12.4); Monocytes Absolute Auto 0.7 X10*3/uL (0.1-1.2); Monocytes Percent Auto 10.1 % (2-11); Neutrophils Absolute Auto 4.2 x10*3/uL (2.0-8.3); Neutrophils Percent Auto 64.3 % (45-73); Platelet Count 230 X10*3/uL (160-400); Red Blood Count 5.24 X10*6/uL (4.60-5.80); Red Cell Distribution Width 13.5 % (11.0-16.0); White Blood Count 6.5 X10*3/uL (4.8-10.8)
[2023-11-07 11:04] LABS: Alanine Aminotransferase 14 U/L (0-40); Albumin Level 4.3 g/dL (3.5-5.0); Alkaline Phosphatase 70 U/L (39-117); Anion Gap 12 (12-20); Aspartate Amino Transferase 16 U/L (5-37); Bilirubin Direct 0.2 mg/dL (0.0-0.5); Bilirubin Total 0.4 mg/dL (0.0-1.0); Blood Urea Nitrogen 8 mg/dL (9-16); Calcium 9.5 mg/dL (8.4-10.2); Carbon Dioxide 24 mmol/L (22-29); Chloride 108 mmol/L (96-108); Creatinine Clr Calc Pharmacy 142.8; Estimated Glomerular Filt Rate > 60; Glucose Random 102 mg/dL (60-115); Lipase 16 U/L (8-78); Potassium 4.2 mmol/L (3.3-5.1); Sodium 140 mmol/L (135-145); Total Protein 7.3 g/dL (6.5-8.0)
--- NOTE | 2023-11-07 11:34 | ED.GENADULT ---
HPI - General Adult General Chief complaint: Abdominal Pain Stated complaint: Abd pain Time Seen by Provider: 11/07/23 11:34 Source: patient Mode of arrival: ambulatory Limitations: no limitations History of Present Illness HPI narrative: Patient is a 23-year-old male with history of Lyme disease, cyclical vomiting, anxiety presenting to the emergency department with complaint of right lower quadrant abdominal pain since 8:00 p.m. last night. He also complains of urinary frequency, stating that he gets up to urinate 8-9 times per night for the past week. Also complains of some low back pain. Denies fevers. Denies nausea, vomiting, diarrhea or constipation. Describes pain as cramping and intermittent. Denies any chest pain, palpitations, dyspnea. Denies any hematochezia or melena. MD complaint: abdominal pain Onset (ago): hour(s) Location: abdomen Radiation: non-radiation Severity: severe Quality: other (cramping) Pain Consistency: intermittent Relieving factors: none Exacerbating factors: none Associated symptoms: other Treatments prior to arrival: none Related Data Home Medications Medication Instructions Recorded Confirmed diclofenac sodium 50 mg 50 mg PO BID PRN 11/04/23 tablet,delayed release Previous Rx's Medication Instructions Recorded ondansetron 4 mg disintegrating 4 mg PO Q8H PRN nausea and 09/21/23 tablet vomiting #20 tabs hydroxyzine HCl 25 mg tablet 25 mg PO BEDTIME #90 tabs 10/25/23 famotidine 40 mg tablet 40 mg PO BEDTIME #30 tabs 11/04/23 pantoprazole 40 mg tablet,delayed 40 mg PO DAILY #30 tabs 11/04/23 release polyethylene glycol 3350 17 17 g PO DAILY #510 grams 11/04/23 gram/dose oral powder (Miralax) docusate sodium 100 mg capsule 100 mg PO BID #30 caps 11/07/23 (Stool Softener) Allergies Allergy/AdvReac Type Severity Reaction Status Date / Time No Known Allergies Allergy Verified 11/07/23 10:30 Review of Systems Review of Systems: As per HPI. Yes all other systems are reviewed and are negative Constitutional: Constitutional: Reports as per HPI PMF Past Medical History Medical History Lyme disease Anxiety Cyclical vomiting Surgical History H/O shoulder surgery Family History Family History Mother Substance use disorder Sister Substance use disorder Sister Substance use disorder Maternal Aunt Breast cancer Paternal Grandmother Lung cancer Social History Social History Housing: House Alcohol intake: current Alcohol intake frequency: does not drink Patient Tobacco Use Status: Former Tobacco user Smoked in Last 30 Days: No e-Cigarette/Vaping Use: Former Use Use of substances other than those prescribed or required for medical reasons: No Substance Use Type: Marijuana Advance Directives: No Advance Directives Information Provided: No service: No Current occupational status: employed Cognitive needs: No Hearing needs: No Vision needs: No Physical Exam ED Vital Signs: Vital Signs - 24 hr 11/07/23 10:27 Temperature 99.3 F Pulse Rate 72 Respiratory Rate 18 Blood Pressure 150/97 H Pulse Oximetry 96 Oxygen Delivery Method Room Air BMI result Body Mass Index 31.3 Vital signs have been reviewed and appear to be correct. Blood pressure elevated. Heart rate normal. Respiratory rate normal. Temperature normal. Oxygen saturation normal. Const General: cooperative, healthy appearing and no acute distress Orientation/consciousness: oriented to person, oriented to place, oriented to time and patient oriented x3 Limitations: no limitations HENMT Head: Yes normocephalic and Yes atraumatic Ears: external ears normal General nose exam: Normal external nose present Face and sinus: Yes face symmetric Mouth: oropharynx normal and moist mucous membranes Throat: Yes uvula midline Eyes Pupils: Equal, round and reactive pupils present Neck Neck: Yes normal visual inspection and Yes supple Resp Effort & Inspection: normal respiratory effort and able to speak in complete sentences Auscultation: clear to auscultation bilaterally Cardio Rate: regular rate Rhythm: regular rhythm Heart sounds: S1 normal heart sound present and S2 normal heart sound present GI Inspection: Yes normal to inspection Palpation (GI): Soft to palpation, Tenderness to palpation present (GI) in the RLQ; Cabrera's sign negative, no guarding and No Rebound tenderness present Auscultation: normoactive bowel sounds General: Yes no CVA tenderness Back/Spine/Pelvis Back: no CVA tenderness Skin General skin exam: elasticity normal and turgor normal Neuro General: oriented to person, oriented to place, oriented to time, patient oriented x3, moves all extremities, no focal motor deficits and CN's II-XI intact bilaterally Cranial nerves: Yes Equal, round and reactive pupils present Cognition (Neuro): normal cognition Extrem General: Yes full ROM, Yes no pedal edema and Yes no calf tenderness Psych Mental Status: mental status grossly normal Affect: normal affect Thought process: Normal thought process present Medications Administered Discontinued Medications Generic Name Dose Route Start Last Admin Trade Name Brenda PRN Reason Stop Dose Admin Iohexol 100 ml 11/07/23 12:24 11/07/23 12:24 Iohexol 350 Mg/Ml 100 Ml Infus..Btl IV 11/07/23 12:25 85 ml ONCE ONE Administration Medical Decision Making Medical Decision Making [facility] Narrative: Patient is a 23-year-old male with history of Lyme disease, cyclical vomiting, anxiety presenting to the emergency department with complaint of right lower quadrant abdominal pain since 8:00 p.m. last night. On exam patient is awake, A+Ox3, VS WNL, afebrile, normal neurological exam without focal deficits, physical exam findings as above. Given reported symptoms and physical exam findings, initial differential includes appendicitis, constipation, UTI/pyelonphritis, renal or ureteral calculi. Plan:labs, UA, CT Labs unremarkable. No evidence of infection on urinalysis. CT notable for no acute abnormalities, however, moderate stool burden noted on my review. My interpretation is in agreement with the radiologist's interpretation. Patient reports history of constipation and states he has been prescribed MiraLax in the past but does not use it because he does not want to be using the bathroom frequently while at work. Will prescribe patient colace and discussed mechanism of action with patient. Instructed patient to follow-up with primary care provider. Return precautions discussed at bedside. Patient verbalized understanding of and agreement with plan. Differential Diagnosis Differential Diagnoses: The differential diagnosis associated with the presentation includes As per MDM. Admission/Observation Consideration of admission/observation: Escalation of care including admission/observation considered Lab Data [facility] Lab Attestation statement: I reviewed the patient's lab results. As per MDM. 11/07/23 10:41 11/07/23 10:41 Labs: Lab Results 11/07/23 11/07/23 Range/Units 10:41 11:33 WBC 6.5 (4.8-10.8) X10*3/uL RBC 5.24 (4.60-5.80) X10*6/uL Hgb 15.0 (14.0-18.0) g/dl Hct 44.5 (42.0-52.0) % MCV 84.9 (80.0-98.0) fL MCH 28.6 (27.0-33.0) pg MCHC 33.7 (31.0-36.0) g/dl RDW 13.5 (11.0-16.0) % Plt Count 230 (160-400) X10*3/uL MPV 10.1 (9.4-12.4) fL Immature Gran % (Auto) 0.2 (0.0-0.4) % Neut % (Auto) 64.3 (45-73) % Lymph % (Auto) 24.2 (20-40) % Larue % (Auto) 10.1 (2-11) % Eos % (Auto) 0.9 (0-4) % Baso % (Auto) 0.3 (0-2) % Lymph # (Auto) 1.6 (1.2-4.9) X10*3/uL Larue # (Auto) 0.7 (0.1-1.2) X10*3/uL Eos # (Auto) 0.1 (0.0-0.4) X10*3/uL Baso # (Auto) 0.0 (0.0-0.2) X10*3/uL Abs Immat Gran (auto) 0.01 (0.00-0.03) X10*3/uL Absolute Neuts (auto) 4.2 (2.0-8.3) x10*3/uL Absolute Nucleated RBC 0.000 (0.0-0.012) X10*3/uL Nucleated RBC % (auto) 0.0 (0.0-0.2) /100WBC Sodium 140 (135-145) mmol/L Potassium 4.2 (3.3-5.1) mmol/L Chloride 108 (96-108) mmol/L Carbon Dioxide 24 (22-29) mmol/L Anion Gap 12 (12-20) BUN 8 L (9-16) mg/dL Creatinine 0.74 (0.5-1.4) mg/dL Estim Creat Clear Calc 142.8 Estimated GFR > 60 Random Glucose 102 (60-115) mg/dL Calcium 9.5 (8.4-10.2) mg/dL Total Bilirubin 0.4 (0.0-1.0) mg/dL Direct Bilirubin 0.2 (0.0-0.5) mg/dL AST 16 (5-37) U/L ALT 14 (0-40) U/L Alkaline Phosphatase 70 (39-117) U/L Total Protein 7.3 (6.5-8.0) g/dL Albumin 4.3 (3.5-5.0) g/dL Lipase 16 (8-78) U/L Urine Color Yellow Urine Appearance Clear Urine pH 8.5 (5.0-9.0) Ur Specific [place] 1.010 (1.005-1.025) Urine Protein Negative (Neg-Trace) mg/dL Urine Glucose (UA) Negative (Negative) mg/dL Urine Ketones Negative (Negative) mg/dL Urine Blood Negative (Negative) Urine Nitrite Negative (Negative) Ur Leukocyte Esterase Negative (Negative) Independent Interpretation I performed an independent interpretation of an: CT Scan Interpretation: No acute abnormalities noted on CT scan, however, moderate stool burden noted Radiology Impression Discussion of test interpretation with radiology: I have reviewed the radiologist's reading. Radiologist Impression: CT/CT abdomen pelvis w IV con IMPRESSION: No significant abnormality. Fleischner guidelines were followed. External Record Review External record reviewed: Inpatient record, Office record and Outpatient record Prescription Management I considered prescription management with: Other Discharge Plan Discharge Clinical Impression: Constipation Patient Disposition: Home, Self-Care Instructions: Laxative, Stool Softeners (By mouth), Constipation (DC), High Fiber Diet (ED) Additional Instructions: You have been evaluated in the emergency department today for abdominal pain. Your evaluation did not show evidence of medical conditions requiring emergent intervention at this time. Please schedule an appointment with your primary care physician. Return to the emergency department if you experience worsening or uncontrolled pain, fevers 100.4? F or greater, recurrent vomiting, inability to tolerate food or fluids by mouth, bloody stools or vomit, black or tarry stools, or any other concerning symptoms. Prescriptions: New docusate sodium [Stool Softener] 100 mg capsule 100 mg PO BID Qty: 30 0RF No Action hydroxyzine HCl 25 mg tablet 25 mg PO BEDTIME Qty: 90 1RF ondansetron 4 mg tablet,disintegrating 4 mg PO Q8H PRN (Reason: nausea and vomiting) Qty: 20 0RF diclofenac sodium 50 mg tablet,delayed release (DR/EC) 50 mg PO BID PRN Patient Comments: From Lyme disease. polyethylene glycol 3350 [Miralax] 17 gram/dose powder 17 g PO DAILY Qty: 510 2RF pantoprazole 40 mg tablet,delayed release (DR/EC) 40 mg PO DAILY Qty: 30 2RF Rx Instructions: take one tablet half an hour before breakfast famotidine 40 mg tablet 40 mg PO BEDTIME Qty: 30 3RF
--- NOTE | 2023-11-07 11:37 | PC.NURSE ---
alert and oriented. ambulatory. reporting 10/10 pain in RUQ abd that started last night and is intermittent. Pain subsided but comes back as a sharp, stabbing 10/10 pain to the right of umbilicus. pt denies smoking cigarettes, denies drug use, is an everyday drinker.
[2023-11-07 11:45] LABS: Appearance Urine Clear; Color Urine Yellow; Glucose Urine UA Negative (Negative); Leukocyte Esterase Urine Negative (Negative); Nitrite Urine Negative (Negative); PH 8.5 (5.0-9.0); Urine Blood Negative (Negative); Urine Ketones Negative (Negative); Urine Protein Negative (Neg-Trace)
[2023-11-07] MEDS: iohexoL 350 MG/ML 100 ML INFUS..BTL IV (12:24)
== END 2023-11-07 14:08 | disposition home or self-care (01) ==
PROVIDERS: Emergency Provider Emergency Medicine
DX: K59.00 Constipation, unspecified (principal); R10.31 Right lower quadrant pain; R35.0 Frequency of micturition; F41.1 Generalized anxiety disorder; R50.9 Fever, unspecified; R11.2 Nausea with vomiting, unspecified; Z79.899 Other long term (current) drug therapy
CPT/HCPCS: 36415; 74177; 80048; 80076; 81003; 83690; 85025; 99284; Q9967

== ENCOUNTER 2023-11-07 14:23 | Outpatient (REF) | payer OTHER, SELFPAY ==
[2023-11-10 18:24] LABS: Transglutaminase Ab IgG <1.0 U/mL; Transglutaminase IgA <1.0 U/mL
== END 2023-11-07 14:24 | disposition home or self-care (01) ==
LOC: HO.HMGCLDS 14:23
PROVIDERS: PCP Nurse Practitioner Primary Care; Referring Provider Nurse Practitioner Primary Care; Visit Provider Nurse Practitioner Family
DX: R10.9 Unspecified abdominal pain (principal)
CPT/HCPCS: 36415; 86364

== ENCOUNTER → 2023-12-02 14:24 | Outpatient (BNVA) | payer SELFPAY | PROVIDERS: PCP Nurse Practitioner Primary Care; Visit Provider Nurse Practitioner Family | DX: R11.15 Cyclical vomiting syndrome unrelated to migraine (principal); K59.01 Slow transit constipation; R10.13 Epigastric pain; R14.0 Abdominal distension (gaseous); K21.9 Gastro-esophageal reflux disease without esophagitis; Z79.899 Other long term (current) drug therapy | CPT/HCPCS: 99212 ==

== ENCOUNTER 2023-12-02 14:25 | Outpatient (AMB) | payer SELFPAY ==
--- NOTE | 2023-12-02 14:27 | A.OFFVIS_ITS ---
Intake Vital Signs 12/02/23 14:29 Height 5 ft 3 in Weight 180 lb BMI 31.9 BP 128/66 Blood Pressure Location Lt brachial Position Sitting Pulse 72 Intake Visit Reasons: 4 week follow up Intake Note: Patient 4 week follow up for Constipation and lab results. Patient cc: abdominal pain on and off, and medication is helping a little with Constipation. 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 Patient can start taking pantoprazole in the morning half an hour before breakfast and as needed famotidine at bedtime. Discussed with patient avoiding dietary triggers and late night snacking. Staying upright for minimum 3 hours after meals discussed with patient. Patient reports constipation and occasional loose stools. Will start him on MiraLax and he can continue taking stool softeners. Patient has not noticed any blood in the stool, however had positive gastric occult blood found in the ER when patient was vomiting. Patient had forceful vomiting after eating salmon. Possible trace of blood. Patient denies coffee-ground vomit at that time. Patient's stool was never tested for blood. Patient will return in the office in 4 weeks, sooner on as needed basis. If patient continues with symptoms we will send him for upper endoscopy to further evaluate for gastritis, esophagitis, duodenitis, gastric or peptic ulcers, Brown's, H pylori. Patient is agreeable to this plan and verbalizes understanding of instructions. He was given the opportunity to ask questions and all questions answered. ? Thank you for allowing me to participate in his care Orders Orders Transglutaminase IgA 11/07/23 R10.9 Transglutaminase Ab IgG 11/07/23 R10.9 Medications New pantoprazole take one tablet half an hour before breakfast 40 mg PO DAILY 30 tabs 2RF K21.9 famotidine 40 mg PO BEDTIME 30 tabs 3RF K21.9 polyethylene glycol 3350 (Miralax) 17 grams PO DAILY 510 grams 2RF TODAY'S VISIT Patient is here today for follow-up. Since last time I have seen him he reports to be feeling much better. His epigastric discomfort has gone away after 1 week being on PPI and H2 ignacio. Currently is taking pantoprazole in the morning and famotidine at bedtime. Patient states that he is trying to avoid dietary triggers as much as possible. He is no longer using MiraLax, however patient reports that he purchased [id number] fiber and is taking that daily. Patient reports that he has good appetite. Denies nausea or vomiting. Denies any dyspepsia, dysphagia or odynophagia. Patient denies any melena, hematochezia, unintentional weight loss or ribbon like stools. Patient does admit that occasionally when he eats something to spicy or fried he might have epigastric discomfort. Patient is trying to follow low FODMAP diet as much as possible. [facility] Medical History (Reviewed 11/04/23 @ 15:50 by Eleonora Mccray [facility]) Lyme disease Anxiety Cyclical vomiting Surgical History H/O shoulder surgery Family History Mother Substance use disorder Sister Substance use disorder Sister Substance use disorder Maternal Aunt Breast cancer Paternal Grandmother Lung cancer Social History Housing: House Alcohol intake: current Alcohol intake frequency: does not drink Patient Tobacco Use Status: Former Tobacco user e-Cigarette/Vaping Use: Former Use Substance Use Type: Marijuana service: No Current occupational status: employed Cognitive needs: No Hearing needs: No Vision needs: No Review of Systems Const Denies weight gain and Denies weight loss ENT Reports no additional complaints, Denies dysphagia and Denies odynophagia Card Reports no additional complaints Resp Reports no additional complaints GI Denies abdominal pain, Denies belching, Denies melena, Denies bloating, Denies change in bowel habits, Denies dysphagia, Denies excessive flatus, Denies dyspepsia, Denies heartburn, Denies diarrhea, Denies loose stools, Denies nausea, Denies odynophagia and Denies vomiting Reports no additional complaints Musc Reports no additional complaints Neuro Reports no additional complaints Psych Reports no additional complaints Endo Reports no additional complaints Physical Exam Vital Signs: Last Vital Signs Pulse 72 12/02/23 14:29 BP 128/66 12/02/23 14:29 BMI result Body Mass Index 31.9 Const General: healthy appearing, no acute distress and well developed Nutritional Appearance: obese Orientation/consciousness: patient oriented x3 Resp Effort & Inspection: normal respiratory effort, able to speak in complete sentences, no tracheal deviation and symmetric chest movement Auscultation: clear to auscultation bilaterally Cardio Rate: regular rate GI Inspection: Yes normal to inspection, No distended and Yes obesity Palpation (GI): Soft to palpation, not firm, nontender and No hepatosplenomegaly present Auscultation: normal bowel sounds General: Yes no CVA tenderness Back/Spine/Pelvis Back: no CVA tenderness Skin General skin exam: elasticity normal, turgor normal and dry skin Neuro General: patient oriented x3 Psych Appearance: grossly normal Mental Status: mental status grossly normal Results Reviewed Results Reviewed: Laboratory Tests 11/07/23 14:31 Tiss Transglutamin IgG <1.0 Tiss Transglutamin IgA <1.0 Assessment & Plan Assessment & Plan (1) Cyclical vomiting: Code(s): R11.15 - Cyclical vomiting syndrome unrelated to migraine (2) Constipation: Code(s): K59.00 - Constipation, unspecified Qualifiers: Constipation type: slow transit constipation Qualified Code(s): K59.01 - Slow transit constipation (3) Postprandial epigastric pain: Code(s): R10.13 - Epigastric pain (4) Postprandial abdominal bloating: Code(s): R14.0 - Abdominal distension (gaseous) (5) GERD (gastroesophageal reflux disease): Code(s): K21.9 - Gastro-esophageal reflux disease without esophagitis Qualifiers: Esophagitis presence: esophagitis presence not specified Qualified Code(s): K21.9 - Gastro-esophageal reflux disease without esophagitis Plan Continue current treatment with pantoprazole and famotidine for another 3 months. Patient was encouraged to avoid dietary triggers. Eventually we would like to wean him off of the PPI. Patient was encouraged to avoid late night snacking. Staying upright for minimum 3 hours after meals discussed with patient. Continue low FODMAP diet, avoid lactose. Patient had normal transglutaminase no celiac, however try to decrease gluten as much as possible to avoid epigastric pain and bloating. I will see patient in 3 months, sooner on as needed basis. Patient will call the office if he will have any GI concerning symptoms. He is agreeable to plan of care and verbalizes understanding of instructions. He was given the opportunity to ask questions and all questions answered. Thank you for allowing me to participate in his care Coding Level of Care Code Est Pt Level 3 (32264) Diagnoses Cyclical vomiting R11.15 Slow transit constipation K59.01 Constipation type: slow transit constipation Postprandial epigastric pain R10.13 Postprandial abdominal bloating R14.0 Gastroesophageal reflux disease, unspecified whether esophagitis present K21.9 Esophagitis presence: esophagitis presence not specified Time Spent (min) 25 Comment 15 minutes spent with patient and additional 10 minutes spent reviewing his records
[2023-12-02 14:29] VITALS: BP 128/66; PULSE 72; BMI 31.9
== END 2023-12-02 15:04 | disposition home or self-care (01) ==
PROVIDERS: PCP Nurse Practitioner Primary Care; Visit Provider Nurse Practitioner Family
DX: R11.15 Cyclical vomiting syndrome unrelated to migraine (principal); K59.01 Slow transit constipation; R10.13 Epigastric pain; R14.0 Abdominal distension (gaseous); K21.9 Gastro-esophageal reflux disease without esophagitis
CPT/HCPCS: 99213

== ENCOUNTER 2024-02-29 05:08 | Emergency (ER) | payer OTHER, SELFPAY ==
[2024-02-29 05:13] VITALS: BP 130/73; PULSE 80; RESP 16; TEMP 36.7; O2SAT 99; BMI 33.7
[2024-02-29 05:28] LABS: MANUAL DIFF FLAG NO
[2024-02-29 05:30] LABS: Basophils Percent Auto 0.2 % (0-2); Eosinophils Absolute Auto 0.1 X10*3/uL (0.0-0.4); Eosinophils Percent Auto 1.6 % (0-4); Hematocrit 42.5 % (42.0-52.0); Hemoglobin 14.7 g/dl (14.0-18.0); Imm Gran Abs Auto 0.01 X10*3/uL (0.00-0.03); Imm Gran Pct Auto 0.2 % (0.0-0.4); Lymphocytes Absolute Auto 2.3 X10*3/uL (1.2-4.9); Lymphocytes Percent Auto 37.2 % (20-40); Mean Corpuscular HGB Conc 34.6 g/dl (31.0-36.0); Mean Corpuscular Hemoglobin 29.2 pg (27.0-33.0); Mean Corpuscular Volume 84.3 fL (80.0-98.0); Mean Platelet Volume 10.2 fL (9.4-12.4); Monocytes Absolute Auto 0.6 X10*3/uL (0.1-1.2); Monocytes Percent Auto 9.6 % (2-11); Neutrophils Absolute Auto 3.2 x10*3/uL (2.0-8.3); Neutrophils Percent Auto 51.2 % (45-73); Platelet Count 215 X10*3/uL (160-400); Red Blood Count 5.04 X10*6/uL (4.60-5.80); Red Cell Distribution Width 12.4 % (11.0-16.0); White Blood Count 6.2 X10*3/uL (4.8-10.8)
[2024-02-29 05:46] LABS: Alanine Aminotransferase 15 U/L (0-40); Albumin Level 4.5 g/dL (3.5-5.0); Alkaline Phosphatase 70 U/L (39-117); Anion Gap 17 (12-20); Aspartate Amino Transferase 19 U/L (5-37); Bilirubin Direct 0.2 mg/dL (0.0-0.5); Bilirubin Total 0.4 mg/dL (0.0-1.0); Blood Urea Nitrogen 7 mg/dL (9-16); Calcium 9.8 mg/dL (8.4-10.2); Carbon Dioxide 25 mmol/L (22-29); Chloride 105 mmol/L (96-108); Creatinine Clr Calc Pharmacy 137.5; Estimated Glomerular Filt Rate > 60; Glucose Random 95 mg/dL (60-115); Lipase 27 U/L (8-78); Potassium 3.5 mmol/L (3.3-5.1); Sodium 143 mmol/L (135-145); Total Protein 7.7 g/dL (6.5-8.0)
== END 2024-02-29 06:03 | disposition left against medical advice (07) ==
PROVIDERS: Emergency Provider Emergency Medicine
DX: R10.9 Unspecified abdominal pain (principal); F43.9 Reaction to severe stress, unspecified; Z53.21 Procedure and treatment not carried out due to patient leaving prior to being seen by health care provider
CPT/HCPCS: 36415; 80053; 82248; 83690; 85025; 99281; 99283

== ENCOUNTER 2024-03-09 14:07 | Outpatient (AMB) | payer OTHER, SELFPAY ==
--- NOTE | 2024-03-09 14:43 | MHC.OFFVIS ---
Vital Signs 03/09/24 14:48 Height 5 ft 3 in Weight 188 lb 11.451 oz BMI 33.4 BP 134/90 H Blood Pressure Location Rt brachial Position Sitting Pulse 90 Pulse Source Pulse Oximeter Pulse Oximetry (%) 99 Oxygen Delivery Method Room Air Intake Visit Reasons: 3 month follow up Constipation Intake Note: Morales presents in office today for a 3 mos scheduled FUV. CC; Pt reports having rectal pain, abdominal pain (B/L LQ), melena in varying severity. Pt reports that he has intermittent normal bowel movements. Sometimes he is completely regular, sometimes he has severe difficulties. Pt reports also having intermittent constipation and diarrhea. Pt also reports that he is very concerned about the possibility of multiple cancers involving but not limited to; anal and rectal cancer. 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 Patient was encouraged to avoid dietary triggers. Eventually we would like to wean him off of the PPI. Patient was encouraged to avoid late night snacking. Staying upright for minimum 3 hours after meals discussed with patient. Continue low FODMAP diet, avoid lactose. Patient had normal transglutaminase no celiac, however try to decrease gluten as much as possible to avoid epigastric pain and bloating. I will see patient in 3 months, sooner on as needed basis. Patient will call the office if he will have any GI concerning symptoms. He is agreeable to plan of care and verbalizes understanding of instructions. He was given the opportunity to ask questions and all questions answered. ? TODAY'S VISIT: Patient is here today for follow-up. Patient is here accompanied by his father. Patient reports in the last few weeks he has been having increased abdominal pain, loose stools and constipation. Patient also reports blood in his stools. Patient reports blood usually after bowel movement. Admits to have rectal pressure and pain. Patient denies any nausea or vomiting. Denies any weight loss. Recent blood work shows no anemia. Patient denies any family history of colorectal cancer. No issues with anesthesia in the past. No history of sleep apnea. Not on any anticoagulation medication. Patient reports that he is taking famotidine in the evening and pantoprazole in the morning and his symptoms of acid reflux are suppressed. Patient is currently taking fiber supplements. [facility] Medical History Lyme disease Anxiety Cyclical vomiting Surgical History H/O shoulder surgery Family History Mother Substance use disorder Sister Substance use disorder Sister Substance use disorder Maternal Aunt Breast cancer Paternal Grandmother Lung cancer Social History Housing: House Alcohol intake: current Alcohol intake frequency: does not drink Patient Tobacco Use Status: Former Tobacco user e-Cigarette/Vaping Use: Former Use Substance Use Type: Marijuana service: No Current occupational status: employed Cognitive needs: No Hearing needs: No Vision needs: No Review of Systems Const Denies weight gain and Denies weight loss ENT Reports no additional complaints, Denies dysphagia and Denies odynophagia Card Reports no additional complaints Resp Reports no additional complaints GI Reports abdominal pain, Denies belching, Denies melena, Reports bloating, Reports constipation, Denies dysphagia, Denies excessive flatus, Denies dyspepsia, Denies heartburn, Denies diarrhea, Reports loose stools, Denies nausea, Denies odynophagia and Denies vomiting Reports no additional complaints Musc Reports no additional complaints Neuro Reports no additional complaints Psych Reports no additional complaints Endo Reports no additional complaints Physical Exam Vital Signs: Last Vital Signs Pulse 90 03/09/24 14:48 BP 134/90 H 03/09/24 14:48 Pulse Ox 99 03/09/24 14:48 Oxygen Delivery Method Room Air 03/09/24 14:48 BMI result Body Mass Index 33.4 Const General: healthy appearing, no acute distress and well developed Nutritional Appearance: obese Orientation/consciousness: patient oriented x3 Resp Effort & Inspection: normal respiratory effort, able to speak in complete sentences, no tracheal deviation and symmetric chest movement Auscultation: clear to auscultation bilaterally Cardio Rate: regular rate GI Inspection: Yes normal to inspection, No distended and Yes obesity Palpation (GI): Soft to palpation, not firm, nontender and No hepatosplenomegaly present Auscultation: normal bowel sounds General: Yes no CVA tenderness Back/Spine/Pelvis Back: no CVA tenderness Skin General skin exam: elasticity normal, turgor normal and dry skin Neuro General: patient oriented x3 Psych Appearance: grossly normal Mental Status: mental status grossly normal Assessment & Plan Assessment & Plan (1) Cyclical vomiting: Code(s): R11.15 - Cyclical vomiting syndrome unrelated to migraine Category: Medical (2) Constipation: Code(s): K59.00 - Constipation, unspecified Category: Medical Qualifiers: Constipation type: slow transit constipation Qualified Code(s): K59.01 - Slow transit constipation (3) Postprandial epigastric pain: Code(s): R10.13 - Epigastric pain (4) Postprandial abdominal bloating: Code(s): R14.0 - Abdominal distension (gaseous) (5) GERD (gastroesophageal reflux disease): Code(s): K21.9 - Gastro-esophageal reflux disease without esophagitis Qualifiers: Esophagitis presence: esophagitis presence not specified Qualified Code(s): K21.9 - Gastro-esophageal reflux disease without esophagitis (6) Rectal bleed: Code(s): K62.5 - Hemorrhage of anus and rectum (7) Diarrhea: Code(s): R19.7 - Diarrhea, unspecified Qualifiers: Diarrhea type: functional diarrhea Qualified Code(s): K59.1 - Functional diarrhea Plan Patient will be sent for colonoscopy. No family history of colorectal cancer. Rectal bleed every time he has a bowel movement. No issues with anesthesia in the past. No history of sleep apnea. Not on any anticoagulation medication. Patient denies any melena. Acid reflux suppressed with PPI and H2 ignacio. Patient was encouraged to avoid dietary triggers and late night snacking. I will see him after the procedure, sooner on as needed basis. He is agreeable to this plan and verbalizes understanding of instructions. He was given the opportunity to ask questions and all questions answered. Thank you for allowing me to participate in his care Medications: New bisacodyl (Dulcolax (bisacodyl)) take 4 tabs at noon the day before your colonoscopy 20 mg (4 x 5 mg) PO ONCE 1 day 4 tabs 0RF constipation Z12.11 - Encounter for screening for malignant neoplasm of colon sennosides (Natural Senna Laxative) 17.2 mg (2 x 8.6 mg) PO BEDTIME 60 tabs 3RF constipation K59.00 - Constipation, unspecified polyethylene glycol 3350 (Miralax) As directed by gastroenterology department at [facility] 238 grams PO ONCE 238 grams 0RF Z12.11 - Encounter for screening for malignant neoplasm of colon Refilled famotidine 40 mg PO BEDTIME 30 tabs 3RF K21.9 - Gastro-esophageal reflux disease without esophagitis pantoprazole take one tablet half an hour before breakfast 40 mg PO DAILY 30 tabs 2RF K21.9 - Gastro-esophageal reflux disease without esophagitis Coding Level of Care Code Est Pt Level 3 (88001) Diagnoses Cyclical vomiting R11.15 Slow transit constipation K59.01 Constipation type: slow transit constipation Postprandial epigastric pain R10.13 Postprandial abdominal bloating R14.0 Gastroesophageal reflux disease, unspecified whether esophagitis present K21.9 Esophagitis presence: esophagitis presence not specified Rectal bleed K62.5 Functional diarrhea K59.1 Diarrhea type: functional diarrhea Time Spent (min) 30 Comment 20 minutes spent with patient and additional 10 minutes spent reviewing his records
[2024-03-09 14:48] VITALS: BP 134/90; PULSE 90; O2SAT 99; BMI 33.4
== END 2024-03-09 15:51 | disposition home or self-care (01) ==
PROVIDERS: PCP Nurse Practitioner Primary Care; Visit Provider Nurse Practitioner Family
DX: R11.15 Cyclical vomiting syndrome unrelated to migraine (principal); K59.01 Slow transit constipation; R10.13 Epigastric pain; R14.0 Abdominal distension (gaseous); K21.9 Gastro-esophageal reflux disease without esophagitis; K62.5 Hemorrhage of anus and rectum; K59.1 Functional diarrhea
CPT/HCPCS: 99213

== ENCOUNTER → 2024-03-09 14:07 | Outpatient (BNVA) | payer OTHER, SELFPAY | PROVIDERS: PCP Nurse Practitioner Primary Care; Visit Provider Nurse Practitioner Family | DX: K21.9 Gastro-esophageal reflux disease without esophagitis (principal); K59.01 Slow transit constipation; K62.5 Hemorrhage of anus and rectum; K59.1 Functional diarrhea; K62.89 Other specified diseases of anus and rectum; R10.9 Unspecified abdominal pain; R11.15 Cyclical vomiting syndrome unrelated to migraine; R10.13 Epigastric pain; R14.0 Abdominal distension (gaseous) | CPT/HCPCS: 99212 ==

== ENCOUNTER 2024-03-19 13:07 | Day surgery (SDC) | payer OTHER, SELFPAY ==
--- NOTE | 2024-03-19 11:51 | P.CONAN_ITS ---
[facility] Active Problems Active Problems: All Active Problems Cyclical vomiting (Acute) Constipation (Acute) Insomnia (Acute) COVID-19 (Acute) Past Medical History Medical History Lyme disease Anxiety Cyclical vomiting Family History Family History Mother Substance use disorder Sister Substance use disorder Sister Substance use disorder Maternal Aunt Breast cancer Paternal Grandmother Lung cancer Family history of problems with anesthesia: No Surgical History Surgical History H/O shoulder surgery History of Problems with Anesthesia: No Social History Social History Housing: House Alcohol intake: current Alcohol intake frequency: does not drink Patient Tobacco Use Status: Former Tobacco user Tobacco use type: Cigarette e-Cigarette/Vaping Use: Former Use Use of substances other than those prescribed or required for medical reasons: Yes Substance Use Type: Marijuana Are you DNR?: No Advance Directives: No Advance Directives Information Provided: Yes service: No Current occupational status: employed Cognitive needs: No Hearing needs: No Vision needs: No Meds Allergies Allergy/AdvReac Type Severity Reaction Status Date / Time No Known Allergies Allergy Verified 03/09/24 14:48 Active Medications: Current Medications Lactated Ringer's (Lr) 1,000 mls @ 50 mls/hr IVCONT .Q20H NICANOR Home Medications ?Medication ?Instructions ?Recorded ?Confirmed ?Last Taken ?Type diclofenac sodium 50 mg 50 mg PO BID PRN 11/04/23 Unknown History tablet,delayed release Exam Airway Mallampati Class: II TM Dist: >3cm Neck ROM: Full Heart: rrr Lungs: cta Assessment and Plan Assessment Anesthesia Assessment: Anesthesia Plan Discussed and Chart Reviewed Final Anesthetic Review Family History of Problems with Anesthesia: No History of Problems with Anesthesia: No NPO: Yes ASA Class: II Final Preanesthetic Review: No Changes in Pt Med Stat, Meds/Allgs Chart Reviewed and Consent Obtained/Reviewed Patient Risk: Low Procedure Risk: Low Anesthetic Plan Anesthetic Plan: MAC: Disposition: Standard PACU
[2024-03-19 14:58] VITALS: BMI 34.0
[2024-03-19 15:09] VITALS: BP 131/78; PULSE 63; RESP 16; TEMP 37; O2SAT 98
--- NOTE | 2024-03-19 15:22 | MHC.SHP ---
Pre-Procedural Eval Section A - 24 Hr Update-Section A only Date of Service: 03/19/24 The patient is an INPATIENT: No Changes since office visit: Yes Patient answered all questions; No Cold of Flu in the past 2 weeks, No New Medical Problems and No Changes in Medication The patient has been examined within 24 hours of the surgical procedure. The History & Physical has been completed within 30 days and I have reviewed it.: Yes Section B - Complete if H&P > 30 days Chief Complaint: Hemorrhage of anus and rectum Allergies: Allergies Allergy/AdvReac Type Severity Reaction Status Date / Time No Known Allergies Allergy Verified 03/09/24 14:48 Plan Diagnosis/Plan: Unchanged I have reviewed the history and physical and performed a pertinent physical examination on my patient. No changes have occurred unless specified. Time Spent With Patient Time: Total time managing care of this patient today ____ minutes.
[2024-03-19] MEDS: Lactated Ringers 1,000 ML 50 ML IVCONT (15:31)
--- NOTE | 2024-03-19 16:26 | HO.OPN-COLON ---
Colonoscopy Operative Note Operative Note Date of Service: 03/19/24 Narrative: COLONOSCOPY TILL CECUM WITH BIOPSIES Pre-op diagnosis: Diarrhea, constipation, rectal bleeding. Post-op diagnosis:? Hemorrhoids Endoscopist:? Vince Copeland MD Anesthesia:?MAC Consent: Indications for the procedure and potential complications of bleeding, perforation, reaction to medications and missed diagnosis were discussed with the patient and informed consent was obtained. Instrument: Olympus PCF H 190 L variable stiffness pediatric colonoscope Monitoring: Vital signs and clinical assessment, intermittent blood pressure monitoring, continuous EKG monitoring, Pulse oximetry and Carbon Dioxide monitoring were done throughout the procedure. Please see anesthesia flowsheet. Colon withdrawl time was 16 minutes. Procedure: The patient was placed in the left lateral decubitis position and pre-procedure medications were administered. After a digital rectal examination of the ano-rectum, the video colonoscope was inserted into the rectum and advanced through the colon to the cecum. The colonoscope was slowly withdrawn in a retrograde panoramic fashion and the colon mucosa was carefully examined including a retroflexed view of the rectum. Findings and interventions are described below. Procedure Difficulty: without difficulty Findings: Terminal Ileum: Distal 10 cm was examined and appeared normal Cecum: Normal Ascending Colon: Normal Transverse Colon: Normal Descending Colon: Normal Sigmoid Colon: Normal Rectum: Normal Ano-rectum: Moderate non-bleeding internal hemorrhoids Colon preparation: Good after some irrigation. [place] Bowel Preparation Scale Right colon; 2 Transverse colon: 2 Left colon; 2 (0 = Unprepared colon segment with mucosa not seen due to solid stool that cannot be cleared. 1 = Portion of mucosa of the colon segment seen, but other areas of the colon segment not well seen due to staining, residual stool and/or opaque liquid. 2 = Minor amount of residual staining, small fragments of stool and/or opaque liquid, but mucosa of colon segment seen well. 3 = Entire mucosa of colon segment seen well with no residual staining, small fragments of stool or opaque liquid) Impression and Post Procedure Diagnosis: Colonoscopy Findings: No polyps were detected Random biopsies were obtained from the right and left colon to check for microscopic colitis Moderate hemorrhoids on retroflexed exam - rectal bleeding likely from hemorrhoids. No other source was detected during colonoscopy. Plan: Pt to schedule a FU with Yolanda Butler NP Repeat Colonoscopy in 20 years if biopsies are normal Above findings were reviewed with the patient and his Dad and a handout on Hemorrhoids was given in the discharge area. Pt was prescribed hydrocortisone cream 2.5% for hemorrhoids and advised to continue taking a stool softener for constipation.
[2024-03-19 16:30] VITALS: BP 129/71; PULSE 84; RESP 17; TEMP 36.1; O2SAT 94
[2024-03-19] MEDS: ondansetron HCL 4 MG/2 ML VIAL IVPUSH (16:43)
[2024-03-19 16:45] VITALS: BP 123/77; PULSE 72; RESP 16; O2SAT 100
[2024-03-19 17:00] VITALS: BP 138/80; PULSE 78; RESP 14; TEMP 36.1; O2SAT 100
--- NOTE | 2024-03-19 17:11 | PC.NURSE ---
Patient vomited small amount. Dr. Pittman aware and at bedside. Patient states nausea improved and that he wants to go home. Dr. Pittman aware and cleared patient to go home at this time.
== END 2024-03-19 17:15 | disposition home or self-care (01) ==
PROVIDERS: Visit Provider Internal Medicine Gastroenterology
PROC: 0DJD8ZZ Inspection of Lower Intestinal Tract, Via Natural or Artificial Opening Endoscopic (ICD-10-PCS; CPT 45378; principal; 2024-03-19 15:00)
DX: K62.5 Hemorrhage of anus and rectum (principal); K64.9 Unspecified hemorrhoids; K59.01 Slow transit constipation; R11.15 Cyclical vomiting syndrome unrelated to migraine; K59.1 Functional diarrhea; R10.13 Epigastric pain; K21.9 Gastro-esophageal reflux disease without esophagitis; F41.9 Anxiety disorder, unspecified; Z87.891 Personal history of nicotine dependence
CPT/HCPCS: 45380; 88305; J2405

== ENCOUNTER → 2024-03-19 13:07 | Outpatient (BNV) | payer OTHER, SELFPAY | PROVIDERS: Visit Provider Internal Medicine Gastroenterology | DX: R19.7 Diarrhea, unspecified (principal); K62.5 Hemorrhage of anus and rectum; K59.00 Constipation, unspecified; K64.8 Other hemorrhoids | CPT/HCPCS: 45380 ==

== ENCOUNTER 2024-03-20 14:44 | Emergency (ER) | payer OTHER, SELFPAY ==
--- NOTE | 2024-03-20 | ECG_ITS ---
Test Reason : CHEST TIGHTNESS Blood Pressure : / mmHG Vent. Rate : 080 BPM Atrial Rate : 080 BPM P-R Int : 148 ms QRS Dur : 086 ms QT Int : 346 ms P-R-T Axes : 058 043 022 degrees QTc Int : 399 ms Normal sinus rhythm with sinus arrhythmia Normal ECG When compared with ECG of 12-SEP-2023 16:46, T wave amplitude has decreased in Anterior leads Referred By: Generic ED Physician Electronically Signed By:Alexis Shukla
[2024-03-20 14:53] VITALS: BP 160/82; PULSE 94; O2SAT 99
[2024-03-20 14:56] VITALS: BP 153/75; PULSE 93; RESP 18; TEMP 36.9; O2SAT 97; BMI 35.6
[2024-03-20 15:26] LABS: Basophils Percent Auto 0.1 % (0-2); Eosinophils Percent Auto 0.1 % (0-4); Hematocrit 42.3 % (42.0-52.0); Hemoglobin 14.9 g/dl (14.0-18.0); Imm Gran Pct Auto 0.6 % (0.0-0.4); Lymphocytes Absolute Auto 1.3 X10*3/uL (1.2-4.9); Lymphocytes Percent Auto 7.5 % (20-40); MANUAL DIFF FLAG SCAN; Mean Corpuscular HGB Conc 35.2 g/dl (31.0-36.0); Mean Corpuscular Hemoglobin 29.5 pg (27.0-33.0); Mean Corpuscular Volume 83.8 fL (80.0-98.0); Mean Platelet Volume 10.2 fL (9.4-12.4); Monocytes Absolute Auto 1.7 X10*3/uL (0.1-1.2); Monocytes Percent Auto 9.8 % (2-11); Neutrophils Absolute Auto 14.1 x10*3/uL (2.0-8.3); Neutrophils Percent Auto 81.9 % (45-73); Platelet Count 213 X10*3/uL (160-400); Red Blood Count 5.05 X10*6/uL (4.60-5.80); Red Cell Distribution Width 13.1 % (11.0-16.0); SCAN SMEAR FLAG 1
[2024-03-20 15:28] LABS: Appearance Urine Clear; Color Urine Yellow; Glucose Urine UA Negative (Negative); Leukocyte Esterase Urine Negative (Negative); Nitrite Urine Negative (Negative); UMIC TRIGGER UACC YES; Urine Blood Trace (Negative); Urine Ketones 40 mg/dL (Negative); Urine Protein Negative (Neg-Trace)
[2024-03-20 15:40] LABS: Alanine Aminotransferase 18 U/L (0-40); Albumin Level 4.9 g/dL (3.5-5.0); Alkaline Phosphatase 63 U/L (39-117); Anion Gap 13 (12-20); Aspartate Amino Transferase 17 U/L (5-37); Bacteria Urine None Seen (None Seen); Bilirubin Direct 0.3 mg/dL (0.0-0.5); Bilirubin Total 0.8 mg/dL (0.0-1.0); Blood Urea Nitrogen 4 mg/dL (9-16); Calcium 11.3 mg/dL (8.4-10.2); Carbon Dioxide 28 mmol/L (22-29); Chloride 107 mmol/L (96-108); Creatinine Clr Calc Pharmacy 151.1; Estimated Glomerular Filt Rate > 60; Glucose Random 118 mg/dL (60-115); Hyaline Casts Urine 0-2 /LPF (0-2); Lipase 8 U/L (8-78); Potassium 3.4 mmol/L (3.3-5.1); Sodium 145 mmol/L (135-145); Squamous Epithelial Cell Urine 0-2 /HPF (0-2); WBC Urine 0-5 /HPF (0-5)
[2024-03-20 15:52] LABS: White Blood Count 17.2 X10*3/uL (4.8-10.8)
[2024-03-20 15:53] LABS: SLIDE REVIEW VERIFIED
--- NOTE | 2024-03-20 16:05 | ED_ITS ---
HPI - General Adult General Chief complaint: General Medical Stated complaint: ABD PAIN, CHEST TIGHTNESS Time Seen by Provider: 03/20/24 16:02 Source: patient, RN notes reviewed and old records reviewed Mode of arrival: ambulatory Limitations: no limitations History of Present Illness ED Provider: Kishor MCCONENLL narrative: 24-year-old male presents for evaluation of abdominal pain and vomiting. Patient reports that he has been vomiting since yesterday. He had a colonoscopy yesterday with Dr. Copeland Actually spoke to Dr. Copeland as she came down to the ER to evaluate the patient. She reports that the colonoscopy was negative with the exception of some minor hemorrhoids The patient went to [facility] last night or he reports having had a CT scan that did not show any abnormal changes He was given Zofran with minor improvement in his symptoms but continues to vomit and therefore we presents to the ER today He denies any focal abdominal pain but generalized abdominal aches Denies any fevers or chills He has no other complaints or concerns at this time The patient does endorse smoking marijuana this past Tuesday He has a diagnosed history of cyclical vomiting Related Data Home Medications ?Medication ?Instructions ?Recorded ?Confirmed diclofenac sodium 50 mg 50 mg PO BID PRN 11/04/23 tablet,delayed release Previous Rx's ?Medication ?Instructions ?Recorded ondansetron 4 mg disintegrating 4 mg PO Q8H PRN nausea and 09/21/23 tablet vomiting #20 tabs hydroxyzine HCl 25 mg tablet 25 mg PO BEDTIME #90 tabs 10/25/23 famotidine 40 mg tablet 40 mg PO BEDTIME #30 tabs 03/09/24 pantoprazole 40 mg tablet,delayed 40 mg PO DAILY #30 tabs 03/09/24 release sennosides 8.6 mg tablet (Natural 17.2 mg (2 x 8.6 mg) PO BEDTIME 03/09/24 Senna Laxative) constipation #60 tabs docusate sodium 100 mg capsule 100 mg PO BID #30 caps 03/19/24 (Stool Softener) hydrocortisone 2.5 % topical cream 1 appl MA BID hemorrhoids 30 days 03/19/24 with perineal applicator #30 grams Allergies Allergy/AdvReac Type Severity Reaction Status Date / Time No Known Allergies Allergy Verified 03/20/24 14:58 Review of Systems 2 Constitutional: Constitutional: Denies body ache(s), Denies chills, Denies fever(s), Denies headache(s), Reports malaise and Reports weakness Eyes: Eyes: Denies blurry vision ENT: Denies headache(s) and Denies sore throat Cardiovascular: Cardiovascular: Denies chest pain and Denies dyspnea Respiratory: Respiratory: Denies cough and Denies dyspnea Gastrointestinal: Gastrointestinal: Reports abdominal pain, Denies hematochezia, Reports nausea and Reports vomiting Musculoskeletal: Musculoskeletal: Denies back pain Integumentary/Breasts: Skin/Breast: Denies rash Neurologic: Denies headache(s) and Reports weakness Psychiatric: Psychiatric: Denies anxiety PMFSH Past Medical History Medical History Lyme disease Anxiety Cyclical vomiting Surgical History H/O shoulder surgery Family History Family History Mother Substance use disorder Sister Substance use disorder Sister Substance use disorder Maternal Aunt Breast cancer Paternal Grandmother Lung cancer Social History Social History Housing: House Alcohol intake: current Alcohol intake frequency: does not drink Patient Tobacco Use Status: Former Tobacco user Tobacco use type: Cigarette Smoked in Last 30 Days: No e-Cigarette/Vaping Use: Former Use Use of substances other than those prescribed or required for medical reasons: No Substance Use Type: Marijuana Advance Directives: No Advance Directives Information Provided: Yes Do you have a plan to hurt others: No Plan service: No Current occupational status: employed Cognitive needs: No Hearing needs: No Vision needs: No Physical Exam ED Vital Signs: Vital Signs - 24 hr 03/20/24 14:56 03/20/24 18:28 Temperature 98.5 F 98.6 F Pulse Rate 93 82 Respiratory Rate 18 16 Blood Pressure 153/75 H 128/75 Pulse Oximetry 97 96 Oxygen Delivery Method Room Air Room Air BMI result Body Mass Index 35.6 Const General: healthy appearing, no acute distress, alert and awake Nutritional Appearance: well nourished Orientation/consciousness: patient oriented x3 HENMT Head: Yes normocephalic and Yes atraumatic Throat: Yes posterior oropharynx normal Eyes Eyelids: Yes eyelids normal Conjunctivae: conjunctivae normal Sclerae: sclerae normal Corneas: corneas normal Pupils: Equal, round and reactive pupils present EOM: EOMs intact bilaterally Neck Neck: Yes full ROM Resp Effort & Inspection: normal respiratory effort, able to speak in complete sentences, no audible wheezes and not labored Auscultation: clear to auscultation bilaterally Cardio Rate: regular rate Rhythm: regular rhythm GI Inspection: No distended Palpation (GI): Soft to palpation, not firm, nontender, no guarding and not rigid Skin General skin exam: elasticity normal Neuro General: patient oriented x3 Cranial nerves: Yes Equal, round and reactive pupils present and Yes Bilaterally intact EOM present Cognition (Neuro): normal cognition Extrem Other: Moving all extremities well without any obvious deformities Course Reevaluation(s) Reevaluation #1: Patient reports feeling much better, vomiting has stopped and he is requesting discharge home. The patient reports he was prescribed antinausea medication last night from [facility] and has not yet picked it up. We will discharge the patient at this time Time: 20:05 Medications Administered Discontinued Medications Generic Name Dose Route Start Last Admin Trade Name Freq PRN Reason Stop Dose Admin Al Hydroxide/Mg Hydroxide 30 ml 03/20/24 17:22 03/20/24 17:43 Magnesium Hydrox/Alum Hydrox 30 Ml Oral.Susp PO 03/20/24 17:23 30 ml ONCE ONE Administration Haloperidol Lactate 2.5 mg 03/20/24 17:22 03/20/24 17:43 Haloperidol Lactate 5 Mg/Ml Vial IVPUSH 03/20/24 17:23 2.5 mg STAT STA Administration Sodium Chloride 1,000 mls @ 999 mls/hr 03/20/24 17:30 03/20/24 19:09 Ns IV 03/20/24 18:30 Infused .Q1H1M NICANOR Infusion Lidocaine HCl 15 ml 03/20/24 17:22 03/20/24 17:43 Lidocaine Hcl Viscous 2 % 15 Ml Solution MUCOUS MEM 03/20/24 17:23 15 ml ONCE ONE Administration Pantoprazole Sodium 40 mg 03/20/24 17:22 03/20/24 17:43 Pantoprazole Sodium 40 Mg/10 Ml Vial IVPUSH 03/20/24 17:23 40 mg ONCE ONE Administration Medical Decision Making Medical Decision Making MDM Narrative: 24-year-old male presents for evaluation of vomiting generalized abdominal pain. He has no focal abdominal tenderness, he had a colonoscopy yesterday that was reportedly negative. He had a CT scan of the abdomen pelvis last night at [facility]. I have not been able to confirm records yet but he states that this was a normal exam. Therefore bowel perforation related to the colonoscopy is less likely. Acute appendicitis is her to be less likely as well given the lack of chloride lower quadrant tenderness in the reportedly normal CT scan yesterday. Patient's symptoms may be related to a viral enteritis versus cyclic vomiting syndrome. He does have a leukocytosis to 17.2k which may be reactive to vomiting. Will hold off on further imaging at this time. Will treat with Haldol 2.5 mg IV, pantoprazole and GI cocktail for his heartburn. We will administer IV fluids Differential Diagnosis Differential Diagnoses: The differential diagnosis associated with the presentation includes Cyclic vomiting Acute appendicitis Chronic abdominal pain Gastroenteritis Acute appendicitis less likely Gastritis Lab Data [facility] Lab Attestation statement: I reviewed the patient's lab results. Leukocytosis to 17.2 K. No significant anemia. Normal platelet count. No significant electrolyte abnormalities 03/20/24 15:11 03/20/24 15:11 Labs: Lab Results 03/20/24 Range/Units 15:11 WBC 17.2 H (4.8-10.8) X10*3/uL RBC 5.05 (4.60-5.80) X10*6/uL Hgb 14.9 (14.0-18.0) g/dl Hct 42.3 (42.0-52.0) % MCV 83.8 (80.0-98.0) fL MCH 29.5 (27.0-33.0) pg MCHC 35.2 (31.0-36.0) g/dl RDW 13.1 (11.0-16.0) % Plt Count 213 (160-400) X10*3/uL MPV 10.2 (9.4-12.4) fL Immature Gran % (Auto) 0.6 H (0.0-0.4) % Neut % (Auto) 81.9 H (45-73) % Lymph % (Auto) 7.5 L (20-40) % Travis % (Auto) 9.8 (2-11) % Eos % (Auto) 0.1 (0-4) % Baso % (Auto) 0.1 (0-2) % Lymph # (Auto) 1.3 (1.2-4.9) X10*3/uL Travis # (Auto) 1.7 H (0.1-1.2) X10*3/uL Eos # (Auto) 0.0 (0.0-0.4) X10*3/uL Baso # (Auto) 0.0 (0.0-0.2) X10*3/uL Abs Immat Gran (auto) 0.10 H (0.00-0.03) X10*3/uL Absolute Neuts (auto) 14.1 H (2.0-8.3) x10*3/uL Absolute Nucleated RBC 0.000 (0.0-0.012) X10*3/uL Nucleated RBC % (auto) 0.0 (0.0-0.2) /100WBC Smear Tech's Comments VERIFIED Sodium 145 (135-145) mmol/L Potassium 3.4 (3.3-5.1) mmol/L Chloride 107 (96-108) mmol/L Carbon Dioxide 28 (22-29) mmol/L Anion Gap 13 (12-20) BUN 4 L (9-16) mg/dL Creatinine 0.74 (0.5-1.4) mg/dL Estim Creat Clear Calc 151.1 Estimated GFR > 60 Random Glucose 118 H (60-115) mg/dL Calcium 11.3 H D (8.4-10.2) mg/dL Total Bilirubin 0.8 (0.0-1.0) mg/dL Direct Bilirubin 0.3 (0.0-0.5) mg/dL AST 17 (5-37) U/L ALT 18 (0-40) U/L Alkaline Phosphatase 63 (39-117) U/L Total Protein 8.0 (6.5-8.0) g/dL Albumin 4.9 (3.5-5.0) g/dL Lipase 8 (8-78) U/L Urine Color Yellow Urine Appearance Clear Urine pH 8.0 (5.0-9.0) Ur Specific Roosevelt 1.010 (1.005-1.025) Urine Protein Negative (Neg-Trace) mg/dL Urine Glucose (UA) Negative (Negative) mg/dL Urine Ketones 40 (Negative) mg/dL Urine Blood Trace H (Negative) Urine Nitrite Negative (Negative) Ur Leukocyte Esterase Negative (Negative) Urine RBC 3-5 H (0-2) /HPF Urine WBC 0-5 (0-5) /HPF Ur Squamous Epith Cells 0-2 (0-2) /HPF Urine Bacteria None Seen (None Seen) Hyaline Casts 0-2 (0-2) /LPF Discharge Plan Discharge Clinical Impression: Vomiting Patient Disposition: Home, Self-Care Instructions: Acute Nausea and Vomiting (ED) Additional Instructions: Your workup in the ER today was reassuring. Your symptoms are possibly related to marijuana use. I recommend that you avoid marijuana use If your symptoms persist, follow-up with Dr. Copeland for a possible upper endoscopy Prescriptions: No Action hydroxyzine HCl 25 mg tablet 25 mg PO BEDTIME Qty: 90 1RF hydrocortisone 2.5 % cream with perineal applicator 1 appl MA BID 30 Days Qty: 30 2RF docusate sodium [Stool Softener] 100 mg capsule 100 mg PO BID Qty: 30 0RF ondansetron 4 mg tablet,disintegrating 4 mg PO Q8H PRN (Reason: nausea and vomiting) Qty: 20 0RF sennosides [Natural Senna Laxative] 8.6 mg tablet 17.2 mg PO BEDTIME Qty: 60 3RF famotidine 40 mg tablet 40 mg PO BEDTIME Qty: 30 3RF pantoprazole 40 mg tablet,delayed release (DR/EC) 40 mg PO DAILY Qty: 30 2RF Rx Instructions: take one tablet half an hour before breakfast diclofenac sodium 50 mg tablet,delayed release (DR/EC) 50 mg PO BID PRN Patient Comments: From Lyme disease. Print Language: Lithuanian
[2024-03-20] MEDS: Lidocaine HCl Viscous 2 % 15 ML SOLUTION MUCOUS MEM (17:43)
[2024-03-20] MEDS: Haloperidol Lactate 5 MG/ML VIAL 2.5 MG IVPUSH (17:43)
[2024-03-20] MEDS: Magnesium Hydrox/Alum Hydrox 30 ML ORAL.SUSP PO (17:43)
[2024-03-20] MEDS: Pantoprazole Sodium 40 MG/10 ML VIAL IVPUSH (17:43)
[2024-03-20] MEDS: 0.9 % Sodium Chloride 1,000 ML 999 ML IV (17:49)
[2024-03-20 18:28] VITALS: BP 128/75; PULSE 82; RESP 16; TEMP 37; O2SAT 96
[2024-03-20 20:13] VITALS: BP 149/95; PULSE 87; RESP 18; TEMP 36.9; O2SAT 98
[2024-03-20 20:15] VITALS: BP 149/95; PULSE 87; RESP 18; TEMP 36.9; O2SAT 98
== END 2024-03-20 20:16 | disposition home or self-care (01) ==
PROVIDERS: Emergency Provider Student in an Organized Health Care Education/Training Program
DX: R11.10 Vomiting, unspecified (principal); R07.89 Other chest pain; R53.81 Other malaise; F12.90 Cannabis use, unspecified, uncomplicated; Z87.891 Personal history of nicotine dependence
CPT/HCPCS: 36415; 80048; 80076; 81001; 83690; 85025; 93005; 96361; 96374; 96375; 99284; C9113; J1630

== ENCOUNTER → 2024-03-20 15:25 | Outpatient (BNV) | payer OTHER, SELFPAY | PROVIDERS: Emergency Provider Student in an Organized Health Care Education/Training Program; Visit Provider Internal Medicine Cardiovascular Disease | DX: R07.9 Chest pain, unspecified (principal) | CPT/HCPCS: 93010 ==

== ENCOUNTER 2024-03-21 07:37 | Emergency (ER) | payer OTHER, SELFPAY ==
[2024-03-21 07:44] VITALS: BP 152/99; BP 168/92; PULSE 72; PULSE 96; RESP 15; TEMP 36.7; O2SAT 96; O2SAT 99; BMI 33.7
--- NOTE | 2024-03-21 07:45 | ECG_ITS ---
Test Reason : CHEST PAIN Blood Pressure : / mmHG Vent. Rate : 099 BPM Atrial Rate : 099 BPM P-R Int : 148 ms QRS Dur : 080 ms QT Int : 340 ms P-R-T Axes : 057 022 033 degrees QTc Int : 436 ms Normal sinus rhythm Normal ECG When compared with ECG of 20-MAR-2024 15:25, No significant change was found Referred By: Asmita Rodriguez Electronically Signed By:Alexis Shukla
--- NOTE | 2024-03-21 07:48 | ED_ITS ---
HPI - Chest Pain General Chief Complaint: Chest Pain Stated Complaint: CHEST DISCOMFORT,SEEN FOR SAME LAST NIGHT PER EMS Time Seen by Provider: 03/21/24 07:41 Source: patient, EMS, RN notes reviewed and old records reviewed Mode of arrival: EMS History of Present Illness ED Provider: Asmita Rodriguez PA-C HPI narrative: 24-year-old male with past medical history of cyclical vomiting, colonoscopy on 03/19/[address] Copeland only significant for hemorrhoids, presenting to the ED via EMS complaining of substernal chest discomfort/burning and epigastric abdominal pain x last night. Patient was evaluated in our ED yesterday for similar symptoms, as well as [facility] the night prior where he reportedly had abdominal CT that was unremarkable. Dr. Copeland evaluated patient in the ED last night. Patient reports decreased p.o. intake. Denies fever, chills, vomiting at present, diarrhea/constipation, nausea, suspicious food intake. Admits to marijuana use, last use Tuesday. Denies other EtOH or drug use Related Data Home Medications ?Medication ?Instructions ?Recorded ?Confirmed diclofenac sodium 50 mg 50 mg PO BID PRN 11/04/23 tablet,delayed release Previous Rx's ?Medication ?Instructions ?Recorded ondansetron 4 mg disintegrating 4 mg PO Q8H PRN nausea and 09/21/23 tablet vomiting #20 tabs hydroxyzine HCl 25 mg tablet 25 mg PO BEDTIME #90 tabs 10/25/23 famotidine 40 mg tablet 40 mg PO BEDTIME #30 tabs 03/09/24 pantoprazole 40 mg tablet,delayed 40 mg PO DAILY #30 tabs 03/09/24 release sennosides 8.6 mg tablet (Natural 17.2 mg (2 x 8.6 mg) PO BEDTIME 03/09/24 Senna Laxative) constipation #60 tabs docusate sodium 100 mg capsule 100 mg PO BID #30 caps 03/19/24 (Stool Softener) hydrocortisone 2.5 % topical cream 1 appl [place] BID hemorrhoids 30 days 03/19/24 with perineal applicator #30 grams ondansetron 4 mg disintegrating 4 mg PO Q8H PRN nausea and 03/21/24 tablet vomiting #10 tabs Allergies Allergy/AdvReac Type Severity Reaction Status Date / Time No Known Allergies Allergy Verified 03/21/24 07:46 Review of Systems 2 Review of Systems: Constitutional: No Fever, No Chills ENT/Mouth: No Ear Pain, No Nasal Congestion, No sore throat, No Rhinorrhea, No Swallowing Difficulty Cardiovascular: + Chest Pain, No SOB Respiratory: No Cough, No Sputum, No Wheezing Gastrointestinal: No Nausea, No Vomiting, No Diarrhea, No Constipation, + Abdominal pain Genitourinary: No Dysuria, No Urinary Frequency, No Hematuria, No Flank Pain Musculoskeletal: No joint pain, No Myalgias, No Joint Swelling Skin: No Skin Lesions, No rash Neuro: No Weakness, No Numbness, No Paresthesias Yes all other systems are reviewed and are negative Constitutional: Constitutional: Reports as per [facility] Past Medical History Attestation statement: The following information was validated with the patient. Source: old records reviewed Medical History Lyme disease Anxiety Cyclical vomiting Surgical History H/O shoulder surgery Family History Family History Mother Substance use disorder Sister Substance use disorder Sister Substance use disorder Maternal Aunt Breast cancer Paternal Grandmother Lung cancer Social History Social History Housing: House Alcohol intake: current Alcohol intake frequency: does not drink Patient Tobacco Use Status: Former Tobacco user Tobacco use type: Cigarette e-Cigarette/Vaping Use: Former Use Substance Use Type: Marijuana service: No Current occupational status: employed Cognitive needs: No Hearing needs: No Vision needs: No Physical Exam 2 Vital Signs: Vital Signs: Last Vital Signs Temp 98.3 F 03/21/24 12:40 Pulse 96 03/21/24 12:40 Resp 13 03/21/24 12:40 BP 146/87 H 03/21/24 12:40 Pulse Ox 97 03/21/24 12:40 O2 Del Method Room Air 03/21/24 12:40 BMI result Body Mass Index 33.7 Const: General: cooperative, no acute distress and lethargic O rientation/consciousness: patient oriented x3 and lethargic Limitations: no limitations HEENT: Head: Yes normal to inspection and Yes atraumatic Ears: hearing grossly normal bilaterally General nose exam: Normal external nose present Face and sinus: Yes normal facial exam Eyes: General: appearance normal, both eyes and all related structures EOM: EOMs intact bilaterally Neck: Neck: Yes normal visual inspection and Yes no meningeal signs Resp: Effort & Inspection: normal respiratory effort and no respiratory distress Auscultation: clear to auscultation bilaterally, no crackles and no wheezes Cardio: Rate: regular rate Heart sounds: S1 normal heart sound present and S2 normal heart sound present GI: Inspection: Yes normal to inspection Palpation (GI): Soft to palpation, nontender, no guarding and not rigid : General: Yes no CVA tenderness Back/Spine/Pelvis: Back: no CVA tenderness Skin: Rashes: no rashes Wounds: no wounds Neuro: General: patient oriented x3, tone normal and no meningeal signs C ranial nerves: Yes CN's II-XII intact bilaterally Gait exam (Neuro): Normal gait present Extrem: General: Yes normal to inspection Course Course Course Narrative: -Received records from [facility], patient was evaluated on 03/19 after colonoscopy, had unremarkable labs and CT scan of chest, abdomen and pelvis which were unremarkable, no evidence of perforation. -improving leukocytosis, today 13.7 > still low suspicion for infectious etiology. Troponin 6.6 > will obtain 3 hour repeat. Labs otherwise reassuring. UA with blood/RBCs -tox screen positive for THC >> suspect cyclical vomiting -1029--patient has soiled himself. On re-evaluation states continued diffuse myalgias. Denies abdominal pain. Has tolerated p.o. jell-O >> CPK and viral studies added. Will give additional IVF -repeat troponin without rise, mi unlikely. CPK WNL. >1324--on re-evaluation patient reports symptomatic improvement. Tolerating p.o. Supplied stool studies, C diff negative. Feels comfortable for discharge home at this time. Recommended close GI follow-up & BRAT diet Results discussed with patient including worrisome signs and symptoms and strict return precautions, and when to return to the emergency department. They verbalized understanding and feel safe for discharge at this time. Medications Administered Discontinued Medications Generic Name Dose Route Start Last Admin Trade Name Freq PRN Reason Stop Dose Admin Al Hydroxide/Mg Hydroxide 30 ml 03/21/24 08:02 03/21/24 08:47 Magnesium Hydrox/Alum Hydrox 30 Ml Oral.Susp PO 03/21/24 08:03 30 ml ONCE ONE Administration Famotidine 20 mg 03/21/24 08:02 03/21/24 08:47 Famotidine/Pf 20 Mg/2 Ml Vial IVPUSH 03/21/24 08:03 20 mg ONCE ONE Administration Sodium Chloride 1,000 mls @ 999 mls/hr 03/21/24 08:00 03/21/24 10:01 Ns IV 03/21/24 09:00 Infused .Q1H1M NICANOR Infusion Sodium Chloride 1,000 mls @ 999 mls/hr 03/21/24 10:30 03/21/24 12:34 Ns IV 03/21/24 11:30 Infused .Q1H1M NICANOR Infusion Ketorolac Tromethamine 15 mg 03/21/24 10:28 03/21/24 10:43 Ketorolac Tromethamine 15 Mg/Ml Vial IVPUSH 03/21/24 10:29 15 mg ONCE ONE Administration Ketorolac Tromethamine 15 mg 03/21/24 12:40 03/21/24 13:04 Ketorolac Tromethamine 15 Mg/Ml Vial IVPUSH 03/21/24 12:41 15 mg ONCE ONE Administration Ondansetron HCl 4 mg 03/21/24 07:55 03/21/24 08:22 Ondansetron Hcl 4 Mg/2 Ml Vial IVPUSH 03/21/24 07:56 4 mg ONCE ONE Administration Medical Decision Making Medical Decision Making MDM Narrative: 24-year-old male with past medical history of cyclical vomiting, colonoscopy on 03/19/[address] Copeland only significant for hemorrhoids, presenting to the ED via EMS complaining of substernal chest discomfort/burning and epigastric abdominal pain x last night. On exam vital signs stable, NAD, lethargic/?under the influence, lungs CTA, abdomen soft/nontender. Concern for cyclical vomiting vs metabolic abnormalities/dehydration vs pancreatitis vs gastritis/GERD vs atypical ACS. Lower suspicion for perforation with recent negative CT, however will obtain records from [facility]. Unlikely appendicitis/diverticulitis or acute cholecystitis without tenderness on exam. Low suspicion for severe sepsis Plan: EKG, labs, UA, tox screen, IVF, GI cocktail, re-evaluate Please refer to course for remaining clinical decision making, interpretation of labs/imaging results, and discussions with consultants and/or family members. Differential Diagnosis Differential Diagnoses: The differential diagnosis associated with the presentation includes As above Admission/Observation Consideration of admission/observation: Escalation of care including admission/observation considered Lab Data MDM Lab Attestation statement: I reviewed the patient's lab results. 03/21/24 08:17 03/21/24 08:18 Labs: Lab Results 03/21/24 03/21/24 03/21/24 Range/Units 08:17 08:18 08:31 WBC 13.7 H (4.8-10.8) X10*3/uL RBC 4.78 (4.60-5.80) X10*6/uL Hgb 14.1 (14.0-18.0) g/dl Hct 40.8 L (42.0-52.0) % MCV 85.4 (80.0-98.0) fL MCH 29.5 (27.0-33.0) pg MCHC 34.6 (31.0-36.0) g/dl RDW 13.2 (11.0-16.0) % Plt Count 196 (160-400) X10*3/uL MPV 10.5 (9.4-12.4) fL Immature Gran % (Auto) 0.4 (0.0-0.4) % Neut % (Auto) 77.7 H (45-73) % Lymph % (Auto) 10.5 L (20-40) % [place] % (Auto) 11.3 H (2-11) % Eos % (Auto) 0.0 (0-4) % Baso % (Auto) 0.1 (0-2) % Lymph # (Auto) 1.4 (1.2-4.9) X10*3/uL [place] # (Auto) 1.6 H (0.1-1.2) X10*3/uL Eos # (Auto) 0.0 (0.0-0.4) X10*3/uL Baso # (Auto) 0.0 (0.0-0.2) X10*3/uL Abs Immat Gran (auto) 0.05 H (0.00-0.03) X10*3/uL Absolute Neuts (auto) 10.6 H (2.0-8.3) x10*3/uL Absolute Nucleated RBC 0.000 (0.0-0.012) X10*3/uL Nucleated RBC % (auto) 0.0 (0.0-0.2) /100WBC Sodium 141 (135-145) mmol/L Potassium 3.4 (3.3-5.1) mmol/L Chloride 104 (96-108) mmol/L Carbon Dioxide 25 (22-29) mmol/L Anion Gap 15 (12-20) BUN 3 L (9-16) mg/dL Creatinine 0.69 (0.5-1.4) mg/dL Estim Creat Clear Calc 157.4 Estimated GFR > 60 Random Glucose 114 (60-115) mg/dL Calcium 9.3 D (8.4-10.2) mg/dL Magnesium 1.9 (1.6-2.6) mg/dL Total Bilirubin 1.0 (0.0-1.0) mg/dL Direct Bilirubin 0.3 (0.0-0.5) mg/dL AST 14 (5-37) U/L ALT 15 (0-40) U/L Alkaline Phosphatase 58 (39-117) U/L Total Creatine Kinase 76 (38-174) U/L Troponin I High Sens 6.6 D (<3.5-35.0) ng/L Total Protein 7.5 (6.5-8.0) g/dL Albumin 4.5 (3.5-5.0) g/dL Lipase 9 (8-78) U/L Urine Color Yellow Urine Appearance Clear Urine pH 8.5 (5.0-9.0) Ur Specific [place] 1.010 (1.005-1.025) Urine Protein Negative (Neg-Trace) mg/dL Urine Glucose (UA) Negative (Negative) mg/dL Urine Ketones 15 (Negative) mg/dL Urine Blood Trace H (Negative) Urine Nitrite Negative (Negative) Ur Leukocyte Esterase Negative (Negative) Urine RBC 6-10 H (0-2) /HPF Urine WBC 0-5 (0-5) /HPF Ur Squamous Epith Cells 0-2 (0-2) /HPF Urine Bacteria None Seen (None Seen) Hyaline Casts 0-2 (0-2) /LPF Urine Opiates Screen Not Detected (Not Detect) Ur Buprenorphine Scrn Not Detected (Not Detect) ng/mL Ur Oxycodone Screen Not Detected (Not Detect) ng/mL Urine Methadone Screen Not Detected (Not Detect) ng/mL Urine Fentanyl Screen Not Detected (Not Detect) Ur Barbiturates Screen Not Detected (Not Detect) Ur Phencyclidine Scrn Not Detected (Not Detect) Ur Amphetamines Screen Not Detected (Not Detect) U Benzodiazepines Scrn Not Detected (Not Detect) Urine Cocaine Screen Not Detected (Not Detect) U Marijuana (THC) Screen POSITIVE H (Not Detect) Ethyl Alcohol < 10 mg/dL C. difficile Tox B Gene (Negative) Influenza Type A (PCR) (Negative) Influenza Type B (PCR) (Negative) RSV RNA Qual (PCR) (Negative) SARS-CoV-2 RNA (RT-PCR) (Negative) 03/21/24 03/21/24 03/21/24 Range/Units 11:17 11:21 11:49 WBC (4.8-10.8) X10*3/uL RBC (4.60-5.80) X10*6/uL Hgb (14.0-18.0) g/dl Hct (42.0-52.0) % MCV (80.0-98.0) fL MCH (27.0-33.0) pg MCHC (31.0-36.0) g/dl RDW (11.0-16.0) % Plt Count (160-400) X10*3/uL MPV (9.4-12.4) fL Immature Gran % (Auto) (0.0-0.4) % Neut % (Auto) (45-73) % Lymph % (Auto) (20-40) % [place] % (Auto) (2-11) % Eos % (Auto) (0-4) % Baso % (Auto) (0-2) % Lymph # (Auto) (1.2-4.9) X10*3/uL [place] # (Auto) (0.1-1.2) X10*3/uL Eos # (Auto) (0.0-0.4) X10*3/uL Baso # (Auto) (0.0-0.2) X10*3/uL Abs Immat Gran (auto) (0.00-0.03) X10*3/uL Absolute Neuts (auto) (2.0-8.3) x10*3/uL Absolute Nucleated RBC (0.0-0.012) X10*3/uL Nucleated RBC % (auto) (0.0-0.2) /100WBC Sodium (135-145) mmol/L Potassium (3.3-5.1) mmol/L Chloride (96-108) mmol/L Carbon Dioxide (22-29) mmol/L Anion Gap (12-20) BUN (9-16) mg/dL Creatinine (0.5-1.4) mg/dL Estim Creat Clear Calc Estimated GFR Random Glucose (60-115) mg/dL Calcium (8.4-10.2) mg/dL Magnesium (1.6-2.6) mg/dL Total Bilirubin (0.0-1.0) mg/dL Direct Bilirubin (0.0-0.5) mg/dL AST (5-37) U/L ALT (0-40) U/L Alkaline Phosphatase (39-117) U/L Total Creatine Kinase (38-174) U/L Troponin I High Sens 5.3 (<3.5-35.0) ng/L Total Protein (6.5-8.0) g/dL Albumin (3.5-5.0) g/dL Lipase (8-78) U/L Urine Color Urine Appearance Urine pH (5.0-9.0) Ur Specific [place] (1.005-1.025) Urine Protein (Neg-Trace) mg/dL Urine Glucose (UA) (Negative) mg/dL Urine Ketones (Negative) mg/dL Urine Blood (Negative) Urine Nitrite (Negative) Ur Leukocyte Esterase (Negative) Urine RBC (0-2) /HPF Urine WBC (0-5) /HPF Ur Squamous Epith Cells (0-2) /HPF Urine Bacteria (None Seen) Hyaline Casts (0-2) /LPF Urine Opiates Screen (Not Detect) Ur Buprenorphine Scrn (Not Detect) ng/mL Ur Oxycodone Screen (Not Detect) ng/mL Urine Methadone Screen (Not Detect) ng/mL Urine Fentanyl Screen (Not Detect) Ur Barbiturates Screen (Not Detect) Ur Phencyclidine Scrn (Not Detect) Ur Amphetamines Screen (Not Detect) U Benzodiazepines Scrn (Not Detect) Urine Cocaine Screen (Not Detect) U Marijuana (THC) Screen (Not Detect) Ethyl Alcohol mg/dL C. difficile Tox B Gene NEGATIVE (Negative) Influenza Type A (PCR) NEGATIVE (Negative) Influenza Type B (PCR) NEGATIVE (Negative) RSV RNA Qual (PCR) NEGATIVE (Negative) SARS-CoV-2 RNA (RT-PCR) NEGATIVE (Negative) Independent Interpretation I performed an independent interpretation of an: EKG (My interpretation EKG normal sinus rhythm rate of 99. QRS 80 QTC 436. No significant change when compared to prior. No STEMI) and Plain X-Ray Radiology Impression Discussion of test interpretation with radiology: I have reviewed the radiologist's reading. Independent Historian Clinical information obtained from an independent historian. History obtained from or confirmed by: EMS External Record Review External record reviewed: Inpatient record, Office record, Outpatient record, Prior outpatient labs, Prior outpatient radiology, Primary care record and Outside ED record Tests considered The following testing was considered but not selected: As above Prescription Management I considered prescription management with: Pain Medication Discharge Plan Discharge Clinical Impression: Atypical chest pain, Nausea Patient Disposition: Home, Self-Care Instructions: Chest Pain (DC), Cyclic Vomiting Syndrome (ED) Additional Instructions: Please practice a bland diet, avoid spicy foods, sweets, caffeine and chocolate Follow-up with gastroenterology as well as your doctor Please see hydrated Avoid drug and alcohol use specifically marijuana as this is likely causing your symptoms Zofran as an antinausea medication please take as prescribed Prescriptions: New ondansetron 4 mg tablet,disintegrating 4 mg PO Q8H PRN (Reason: nausea and vomiting) Qty: 10 0RF No Action hydroxyzine HCl 25 mg tablet 25 mg PO BEDTIME Qty: 90 1RF hydrocortisone 2.5 % cream with perineal applicator 1 appl [place] BID 30 Days Qty: 30 2RF docusate sodium [Stool Softener] 100 mg capsule 100 mg PO BID Qty: 30 0RF ondansetron 4 mg tablet,disintegrating 4 mg PO Q8H PRN (Reason: nausea and vomiting) Qty: 20 0RF sennosides [Natural Senna Laxative] 8.6 mg tablet 17.2 mg PO BEDTIME Qty: 60 3RF famotidine 40 mg tablet 40 mg PO BEDTIME Qty: 30 3RF pantoprazole 40 mg tablet,delayed release (DR/EC) 40 mg PO DAILY Qty: 30 2RF Rx Instructions: take one tablet half an hour before breakfast diclofenac sodium 50 mg tablet,delayed release (DR/EC) 50 mg PO BID PRN Patient Comments: From Lyme disease. Referrals: Vince Copeland MD [Physician] - Physician,Unknown J [Primary Care Provider] - Print Language: Japanese
[2024-03-21 07:52] VITALS: BP 152/99; PULSE 85; PULSE 96; RESP 20; TEMP 36.7; O2SAT 99
[2024-03-21 08:22] LABS: MANUAL DIFF FLAG NO
[2024-03-21] MEDS: ondansetron HCL 4 MG/2 ML VIAL IVPUSH (08:22)
[2024-03-21] MEDS: 0.9 % Sodium Chloride 1,000 ML 999 ML IV ×2 (08:22→10:43)
[2024-03-21 08:24] LABS: Basophils Percent Auto 0.1 % (0-2); Hematocrit 40.8 % (42.0-52.0); Hemoglobin 14.1 g/dl (14.0-18.0); Imm Gran Abs Auto 0.05 X10*3/uL (0.00-0.03); Imm Gran Pct Auto 0.4 % (0.0-0.4); Lymphocytes Absolute Auto 1.4 X10*3/uL (1.2-4.9); Lymphocytes Percent Auto 10.5 % (20-40); Mean Corpuscular HGB Conc 34.6 g/dl (31.0-36.0); Mean Corpuscular Hemoglobin 29.5 pg (27.0-33.0); Mean Corpuscular Volume 85.4 fL (80.0-98.0); Mean Platelet Volume 10.5 fL (9.4-12.4); Monocytes Absolute Auto 1.6 X10*3/uL (0.1-1.2); Monocytes Percent Auto 11.3 % (2-11); Neutrophils Absolute Auto 10.6 x10*3/uL (2.0-8.3); Neutrophils Percent Auto 77.7 % (45-73); Platelet Count 196 X10*3/uL (160-400); Red Blood Count 4.78 X10*6/uL (4.60-5.80); Red Cell Distribution Width 13.2 % (11.0-16.0); SCAN SMEAR FLAG 1; White Blood Count 13.7 X10*3/uL (4.8-10.8)
[2024-03-21 08:38] LABS: Appearance Urine Clear; Color Urine Yellow; Glucose Urine UA Negative (Negative); Leukocyte Esterase Urine Negative (Negative); Nitrite Urine Negative (Negative); PH 8.5 (5.0-9.0); UMIC TRIGGER UACC YES; Urine Blood Trace (Negative); Urine Ketones 15 mg/dL (Negative); Urine Protein Negative (Neg-Trace)
[2024-03-21 08:41] LABS: Bacteria Urine None Seen (None Seen); Hyaline Casts Urine 0-2 /LPF (0-2); Squamous Epithelial Cell Urine 0-2 /HPF (0-2); WBC Urine 0-5 /HPF (0-5)
[2024-03-21 08:47] LABS: Amphetamine Screen Urine Not Detected (Not Detect); Barbiturates, Urine Not Detected (Not Detect); Benzodiazepines Screen Urine Not Detected (Not Detect); Buprenorphine Scr Not Detected (Not Detect); Cannabinoid Screen Urine POSITIVE (Not Detect); Cocaine Screen Urine Not Detected (Not Detect); Fentanyl, urine Not Detected (Not Detect); Methadone Screen, Urine Not Detected (Not Detect); Opiate Screen Urine Not Detected (Not Detect); Oxycodone Screen Urine Not Detected (Not Detect); Phencyclidine Screen Urine Not Detected (Not Detect)
[2024-03-21] MEDS: Magnesium Hydrox/Alum Hydrox 30 ML ORAL.SUSP PO (08:47)
[2024-03-21] MEDS: Famotidine/PF 20 MG/2 ML VIAL IVPUSH (08:47)
[2024-03-21 08:50] LABS: Troponin-I High Sensitivity 6.6 ng/L (<3.5-35.0)
[2024-03-21 08:53] LABS: Alanine Aminotransferase 15 U/L (0-40); Albumin Level 4.5 g/dL (3.5-5.0); Alkaline Phosphatase 58 U/L (39-117); Anion Gap 15 (12-20); Aspartate Amino Transferase 14 U/L (5-37); Bilirubin Direct 0.3 mg/dL (0.0-0.5); Blood Urea Nitrogen 3 mg/dL (9-16); Calcium 9.3 mg/dL (8.4-10.2); Carbon Dioxide 25 mmol/L (22-29); Chloride 104 mmol/L (96-108); Creatinine Clr Calc Pharmacy 157.4; Estimated Glomerular Filt Rate > 60; Ethanol < 10 mg/dL; Glucose Random 114 mg/dL (60-115); Lipase 9 U/L (8-78); Magnesium 1.9 mg/dL (1.6-2.6); Potassium 3.4 mmol/L (3.3-5.1); Sodium 141 mmol/L (135-145); Total Protein 7.5 g/dL (6.5-8.0)
[2024-03-21 08:58] VITALS: BP 157/88; PULSE 80; RESP 20; TEMP 36.6; O2SAT 97
--- NOTE | 2024-03-21 09:54 | PC.NURSE ---
Pct attempted to PO trial pt with Jello. Pt felt as though it was getting stuck in his throat. PA aware.
[2024-03-21] MEDS: Ketorolac Tromethamine 15 MG/ML VIAL IVPUSH ×2 (10:43→13:04)
[2024-03-21 11:51] LABS: Troponin-I High Sensitivity 5.3 ng/L (<3.5-35.0)
[2024-03-21 12:06] LABS: Influenza A PCR NEGATIVE (Negative); Influenza B PCR NEGATIVE (Negative); Resp Syncy Virus RNA Qual PCR NEGATIVE (Negative); SARS COV2 PCR INHOUSE NEGATIVE (Negative)
[2024-03-21 12:40] VITALS: BP 146/87; PULSE 96; RESP 13; TEMP 36.8; O2SAT 97
[2024-03-21 12:49] LABS: CDiff Gene PCR NEGATIVE (Negative)
[2024-03-21 13:38] VITALS: BP 135/88; PULSE 89; RESP 18; TEMP 36.8; O2SAT 98
[2024-03-21 14:53] LABS: Adenovirus F 40/41 Not Detected (Not Detect.); Astrovirus Not Detected (Not Detect.); Campylobacter Not Detected (Not Detect.); Cryptosporidium Not Detected (Not Detect.); Cyclospora cayetanensis Not Detected (Not Detect.); E. coli EAEC Not Detected (Not Detect.); E. coli EPEC Not Detected (Not Detect.); E. coli ETEC Not Detected (Not Detect.); E. coli STEC Not Detected (Not Detect.); Entamoeba histolytica Not Detected (Not Detect.); Giardia lamblia Not Detected (Not Detect.); Norovirus GI/GII Not Detected (Not Detect.); Plesiomonas shigelloides Not Detected (Not Detect.); Rotavirus A Not Detected (Not Detect.); Salmonella Not Detected (Not Detect.); Sapovirus Not Detected (Not Detect.); Shigella sp./EIEC Not Detected (Not Detect.); Vibrio Not Detected (Not Detect.); Vibrio Cholerae Not Detected (Not Detect.); Yersinia enterocolitica Not Detected (Not Detect.)
== END 2024-03-21 13:41 | disposition home or self-care (01) ==
PROVIDERS: Physician Assistant; Emergency Provider Emergency Medicine
DX: R07.89 Other chest pain (principal); R11.2 Nausea with vomiting, unspecified; R10.13 Epigastric pain; Z03.818 Encounter for observation for suspected exposure to other biological agents ruled out; Z79.899 Other long term (current) drug therapy; Z87.891 Personal history of nicotine dependence
CPT/HCPCS: 0241U; 36415; 80048; 80076; 80307; 81001; 82550; 83690; 83735; 84484; 85025; 87493; 87507; 93005; 96361; 96374; 96375; 96376; 99285; J1885; J2405

== ENCOUNTER → 2024-03-21 07:45 | Outpatient (BNV) | payer OTHER, SELFPAY | PROVIDERS: Emergency Provider Emergency Medicine; Visit Provider Internal Medicine Cardiovascular Disease | DX: R07.9 Chest pain, unspecified (principal) | CPT/HCPCS: 93010 ==

== ENCOUNTER 2024-03-22 09:14 | Emergency (ER) | payer OTHER, SELFPAY ==
--- NOTE | 2024-03-22 | ECG_ITS ---
Test Reason : chest pain Blood Pressure : / mmHG Vent. Rate : 090 BPM Atrial Rate : 090 BPM P-R Int : 146 ms QRS Dur : 082 ms QT Int : 348 ms P-R-T Axes : 059 008 031 degrees QTc Int : 425 ms Normal sinus rhythm Normal ECG When compared with ECG of 21-MAR-2024 07:45, No significant change was found Referred By: Generic ED Physician Electronically Signed By:Alexis Shukla
--- NOTE | ~2024-03-22 | XR_ITS ---
EXAMINATION: XR CHEST CLINICAL INFORMATION: Chest pain after colonoscopy COMPARISON: None available. TECHNIQUE: 2 views of the chest were obtained. FINDINGS: No significant abnormality is noted involving the heart, lungs, mediastinum, bony thorax or soft tissues. No free air is seen beneath the diaphragm. XR/XR chest 2V IMPRESSION: Unremarkable examination.
--- NOTE | ~2024-03-22 | CT_ITS ---
EXAMINATION: CT ANGIOGRAM OF THE CHEST WITH AND WITHOUT CONTRAST (CT PULMONARY ANGIOGRAM FOR PE) CLINICAL INFORMATION: Reason for Exam elevated dimer, ro VTE COMPARISON: CXR from 03/22/2024 TECHNIQUE: Prior to contrast administration, noncontrast localization images were obtained. Subsequently, multidetector volumetric imaging was performed from the thoracic inlet to below the diaphragms following the administration of 65 mL Omnipaque 350 intravenous contrast. No contrast reaction reported. Sagittal, coronal, and MIP oblique sagittal reformatted images were obtained on the CT workstation, uploaded to PACS, and reviewed. This CT examination was performed using dose optimization techniques as appropriate, variously including the following: *Automated exposure control *Adjustment of mA and/or kV according to patient size (this includes techniques or standardized protocols for targeted exams where dose is matched to indication/reason for exam; i.e. extremities or head) *Use of iterative reconstruction technique DLP: Total exam dose-length product 228 mGy-cm FINDINGS: LUNGS AND PLEURA: Lungs are well expanded and without evidence of acute disease. No pulmonary edema. No consolidation, pleural effusion or pneumothorax. QUALITY OF STUDY/CONTRAST BOLUS: Satisfactory. PULMONARY ARTERIES: The pulmonary arteries are normal in size. No embolic filling defects within the main, lobar or segmental vessels. OTHER CARDIOVASCULAR: The heart size is normal. No pericardial effusion. Thoracic aorta is normal. The great vessels arising from the aortic arch are widely patent. MEDIASTINUM: No mediastinal mass. The esophagus has normal wall thickness. LYMPHATICS: No pathologic sized axillary, hilar or mediastinal lymph nodes. UPPER ABDOMEN: The adrenal glands are normal. No acute findings in the visualized portion of the upper abdomen. OSSEOUS STRUCTURES: No acute or suspicious osseous abnormality. CT/CT angio chest PE protocol IMPRESSION: No acute pulmonary disease. No evidence of pulmonary embolism.
[2024-03-22 09:24] VITALS: BP 139/85; PULSE 98; RESP 18; TEMP 36.8; O2SAT 98; BMI 33.7
[2024-03-22 10:01] LABS: MANUAL DIFF FLAG NO
[2024-03-22 10:08] LABS: Basophils Percent Auto 0.2 % (0-2); Eosinophils Percent Auto 0.1 % (0-4); Hematocrit 39.9 % (42.0-52.0); Hemoglobin 13.8 g/dl (14.0-18.0); Imm Gran Abs Auto 0.03 X10*3/uL (0.00-0.03); Imm Gran Pct Auto 0.3 % (0.0-0.4); Lymphocytes Absolute Auto 1.4 X10*3/uL (1.2-4.9); Lymphocytes Percent Auto 15.9 % (20-40); Mean Corpuscular HGB Conc 34.6 g/dl (31.0-36.0); Mean Corpuscular Hemoglobin 29.4 pg (27.0-33.0); Mean Corpuscular Volume 84.9 fL (80.0-98.0); Mean Platelet Volume 10.4 fL (9.4-12.4); Monocytes Percent Auto 10.9 % (2-11); Neutrophils Absolute Auto 6.5 x10*3/uL (2.0-8.3); Neutrophils Percent Auto 72.6 % (45-73); Platelet Count 177 X10*3/uL (160-400); Red Cell Distribution Width 13.2 % (11.0-16.0)
[2024-03-22 10:18] LABS: Lipase 11 U/L (8-78)
--- NOTE | 2024-03-22 10:20 | ED_ITS ---
HPI - Chest Pain General Chief Complaint: Chest Pain Stated Complaint: Chest pain, body aches Time Seen by Provider: 03/22/24 10:02 Source: patient, RN notes reviewed and old records reviewed Mode of arrival: ambulatory Limitations: no limitations History of Present Illness ED Provider: ANTON MCNEILL PA-C HPI narrative: 24 year old male with pmhx significant for GERD, cyclical vomiting, colonoscopy on 03/19/[address] Copeland only significant for hemorrhoids presents to the ED today for evaluation of substernal chest pain, back pain, and myalgias x4 days. Chest pain is located substernally and does not radiate. Admits to diffuse muscle aches, stating that he cannot get in a comfortable position. Denies injury/trauma. denies difficulty walking or breathing. Reports symptoms began after colonoscopy with Dr. Teran on Tuesday. Also endorses nausea and vomiting (last episode 2 days ago) along with one episode of diarrhea yesterday. He is not currently nauseous. Admits to regular marijuana use however has not smoked this since since Tuesday (6 days ago). Hx of diagnosed cyclical vomiting. Denies weakness, fever, chills, sore throat, cough, hemoptysis, calf pain, palpitations, shortness of breath, wheezing, constipation, abdominal pain, flank pain, dysuria, hematuria, rashes. Patient was evaluated at [facility] x2 and seen at [facility] 2 days ago. All three visits yielded unremarkable work ups. Dr. Copeland also evaluated patient in ED 2 days ago and did not report any concerns. He presents today with continued symptoms. 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 No new rashes. Admits to new tick bite a few months ago however did not seek medical attention at that time. Related Data Home Medications ?Medication ?Instructions ?Recorded ?Confirmed diclofenac sodium 50 mg 50 mg PO BID PRN 11/04/23 tablet,delayed release Previous Rx's ?Medication ?Instructions ?Recorded ondansetron 4 mg disintegrating 4 mg PO Q8H PRN nausea and 09/21/23 tablet vomiting #20 tabs hydroxyzine HCl 25 mg tablet 25 mg PO BEDTIME #90 tabs 10/25/23 famotidine 40 mg tablet 40 mg PO BEDTIME #30 tabs 03/09/24 pantoprazole 40 mg tablet,delayed 40 mg PO DAILY #30 tabs 03/09/24 release sennosides 8.6 mg tablet (Natural 17.2 mg (2 x 8.6 mg) PO BEDTIME 03/09/24 Senna Laxative) constipation #60 tabs docusate sodium 100 mg capsule 100 mg PO BID #30 caps 03/19/24 (Stool Softener) hydrocortisone 2.5 % topical cream 1 appl VA BID hemorrhoids 30 days 03/19/24 with perineal applicator #30 grams ondansetron 4 mg disintegrating 4 mg PO Q8H PRN nausea and 03/21/24 tablet vomiting #10 tabs cyclobenzaprine 5 mg tablet 5 mg PO Q8H PRN muscle pain #10 03/22/24 tabs pantoprazole 20 mg tablet,delayed 20 mg PO BEDTIME 4 weeks #28 tabs 03/22/24 release (Protonix) Allergies Allergy/AdvReac Type Severity Reaction Status Date / Time No Known Allergies Allergy Verified 03/22/24 09:25 Review of Systems 2 Review of Systems: Constitutional: No fever, chills, fatigue, night sweats, weight changes ENT/Mouth: No ear pain, hearing loss, nasal congestion, sinus pain, rhinorrhea, sore throat Eyes: No eye pain, swelling, redness, vision changes, discharge Cardio: No chest pain, palpitations, CEJA, orthopnea, peripheral edema, +chest pain Pulm: No SOB, cough, sputum, wheezing, dyspnea, hemoptysis GI: No nausea, vomiting, hematemesis, abdominal pain, diarrhea, constipation, hematochezia, melena : No irregular bleeding, dysuria, frequency, urgency, hesitancy, hematuria, flank pain, urinary flow changes, urinary incontinence or retention MSK: No back pain, neck pain, joint pain, +myalgias Skin: No lesions, rashes Neuro: No weakness, numbness, paresthesias, LOC, dizziness, headache Psych: No anxiety/panic, depression, SI/HI, AH/VH All other systems reviewed and are negative. [facility] Past Medical History Attestation statement: The following information was validated with the patient. Source: old records reviewed and nursing notes reviewed Medical History Lyme disease Anxiety Cyclical vomiting Surgical History H/O shoulder surgery Family History Family History Mother Substance use disorder Sister Substance use disorder Sister Substance use disorder Maternal Aunt Breast cancer Paternal Grandmother Lung cancer Social History Social History Housing: House Alcohol intake: former Patient Tobacco Use Status: Former Tobacco user Tobacco use type: Cigarette Smoked in Last 30 Days: No e-Cigarette/Vaping Use: Former Use Substance Use Type: Marijuana Advance Directives: No Advance Directives Information Provided: Yes service: No Current occupational status: employed Cognitive needs: No Hearing needs: No Vision needs: No Physical Exam 2 Vital Signs: Vital Signs: Last Vital Signs Temp 98.3 F 03/22/24 17:23 Pulse 96 03/22/24 17:23 Resp 18 03/22/24 17:23 BP 151/78 H 03/22/24 17:23 Pulse Ox 99 03/22/24 17:23 O2 Del Method Room Air 03/22/24 17:23 BMI result Body Mass Index 33.7 Patient hypertensive, vitals otherwise WNL Const: General: cooperative, healthy appearing, comfortable and no acute distress Orientation/consciousness: patient oriented x3 Limitations: no limitations HEENT: Head: Yes normal to inspection, Yes No palpable skull fracture present, Yes normocephalic and Yes atraumatic Eyes: General: appearance normal, both eyes and all related structures C onjunctivae: conjunctivae normal Sclerae: sclerae normal Pupils: Equal, round and reactive pupils present Neck: Neck: Yes normal visual inspection, Yes full ROM and Yes no lymphadenopathy Chest: Chest palpation & inspection: normal inspection of the chest and normal palpation of entire chest wall Resp: Effort & Inspection: normal respiratory effort and able to speak in complete sentences Auscultation: clear to auscultation bilaterally Cardio: Other: No peripheral edema Jugular venous distension: no JVD Rate: regular rate Rhythm: regular rhythm GI: Other: Abdomen soft, nondistended, nontender to palpation, no rebound tenderness or guarding. Normoactive bowel sounds x4. Negative Rovsing sign. Negative McBurney point tenderness. Negative Cabrera's sign. : General: Yes no CVA tenderness Back/Spine/Pelvis: Other: No midline spinous tenderness or step off deformity. No paraspinal muscle tenderness. Back: no CVA tenderness Skin: General skin exam: no rashes or lesions noted Neuro: Other: Strength 5/5 intact throughout.?No saddle anesthesia.?Sensation intact to light touch.?Neurovascular intact distally.?2+ patellar DTRs intact. General: patient oriented x3 Cranial nerves: Yes Equal, round and reactive pupils present Extrem: General: Yes no joint enlargement and No calf tenderness Course Course Course Narrative: 1335-- CBC without leukocytosis or left shift. Mildly anemic with H&H 13.8/39.9 when compared to priors. Chemistry without acute electrolyte abnormality requiring intervention. Initial troponin 4.4. Delta troponin flat. ACS unlikely. EKG showing normal sinus rhythm with a rate of 90 beats per minute. There are no acute ischemic changes or ST elevations. Urine does not demonstrate infection. Toxicology positive for marijuana, otherwise negative. Ethanol undetectable. He has tested negative for COVID, flu, RSV. Chest x-ray does not demonstrate consolidation or infiltrate to suggest pneumonia, agree with radiologist's interpretation. CPK wnl > unlikely rhabdo. I did reviewed patient's home medications and did not find any medication that would be contributing to patient's symptoms. > patient has received IVF, IV morphine, Tylenol, and droperidol with improvement > Lyme and tick-borne testing pending > ddimer pending although PE less likely 1710-- Ddimer elevated to 253. CTA chest ordered which does not show evidence of pulmonary embolism or pulmonary disease. Patient is tolerating crackers, jell-o, orange juice and water in ED. No episodes of vomiting. reports improvement in symptoms with medications. he is ambulating with steady gait. i feel patient is safe for discharge home at this time and patient/ patient's father are agreeable with this. Patient has remained stable throughout ED visit today. Discussed worrisome signs and symptoms and when to return to the ED. All questions answered at this time. Patient is agreeable with disposition and stable for discharge. Medications Administered Discontinued Medications Generic Name Dose Route Start Last Admin Trade Name Freq PRN Reason Stop Dose Admin Acetaminophen 975 mg 03/22/24 10:51 03/22/24 10:57 Acetaminophen 325 Mg Tablet PO 03/22/24 10:52 975 mg ONCE ONE Administration Cyclobenzaprine HCl 10 mg 03/22/24 14:13 03/22/24 14:45 Cyclobenzaprine Hcl 10 Mg Tablet PO 03/22/24 14:14 10 mg ONCE ONE Administration Droperidol 0.625 mg 03/22/24 10:27 03/22/24 10:35 Droperidol 5 Mg/2 Ml Vial IVPUSH 03/22/24 10:28 0.625 mg ONCE ONE Administration Sodium Chloride 1,000 mls @ 999 mls/hr 03/22/24 10:15 03/22/24 11:28 Ns IV 03/22/24 11:15 Infused .Q1H1M NICANOR Infusion Iohexol 65 ml 03/22/24 15:17 03/22/24 15:21 Iohexol 350 Mg/Ml 100 Ml Infus..Btl IV 03/22/24 15:18 65 ml ONCE ONE Administration Morphine Sulfate 4 mg 03/22/24 12:21 03/22/24 12:31 Morphine Sulfate 4 Mg/Ml Cartridge IVPUSH 03/22/24 12:22 4 mg ONCE ONE Administration Protocol Medical Decision Making Medical Decision Making MDM Narrative: 24 year old male with pmhx significant for cyclical vomiting, colonoscopy on 03/19/[address] Copeland only significant for hemorrhoids presents to the ED today for evaluation of substernal chest pain, back pain, and myalgias x4 days. Vital signs stable, afebrile. He is nontoxic appearing in no acute distress. appears slightly uncomfortable on bed. Abdomen is soft, nondistended, nontender to palpation, no rebound tenderness or guarding. Negative Rovsing sign. Negative McBurney point tenderness. Negative Cabrera's sign. No CVAT bilaterally. No midline spinous tenderness or step-off deformity. 2+ patellar DTRs intact. Ambulating with steady gait. No joint effusion. No calf tenderness bilaterally. No obvious rashes. Skin warm, dry, intact. Differential diagnosis includes anemia, electrolyte abnormality, dehydration, gastroenteritis, atypical chest pain, viral syndrome, ACS, arrhythmia, pneumonia, rhabdomyolysis, cyclical vomiting syndrome, pulmonary embolism, lyme disease, tick bourne pathology. unlikely guillian barre Plan for labs, EKG, chest x-ray, ddimer, ivf, pain control, re-evaluation. Differential Diagnosis Differential Diagnoses: The differential diagnosis associated with the presentation includes As above. Admission/Observation Not indicated. Lab Data MDM Lab Attestation statement: I reviewed the patient's lab results. as above. 03/22/24 09:57 03/22/24 09:57 Labs: Lab Results 03/22/24 03/22/24 03/22/24 Range/Units 09:57 10:08 13:06 WBC 9.0 (4.8-10.8) X10*3/uL RBC 4.70 (4.60-5.80) X10*6/uL Hgb 13.8 L (14.0-18.0) g/dl Hct 39.9 L (42.0-52.0) % MCV 84.9 (80.0-98.0) fL MCH 29.4 (27.0-33.0) pg MCHC 34.6 (31.0-36.0) g/dl RDW 13.2 (11.0-16.0) % Plt Count 177 (160-400) X10*3/uL MPV 10.4 (9.4-12.4) fL Immature Gran % (Auto) 0.3 (0.0-0.4) % Neut % (Auto) 72.6 (45-73) % Lymph % (Auto) 15.9 L (20-40) % [place] % (Auto) 10.9 (2-11) % Eos % (Auto) 0.1 (0-4) % Baso % (Auto) 0.2 (0-2) % Lymph # (Auto) 1.4 (1.2-4.9) X10*3/uL [place] # (Auto) 1.0 (0.1-1.2) X10*3/uL Eos # (Auto) 0.0 (0.0-0.4) X10*3/uL Baso # (Auto) 0.0 (0.0-0.2) X10*3/uL Abs Immat Gran (auto) 0.03 (0.00-0.03) X10*3/uL Absolute Neuts (auto) 6.5 (2.0-8.3) x10*3/uL Absolute Nucleated RBC 0.000 (0.0-0.012) X10*3/uL Nucleated RBC % (auto) 0.0 (0.0-0.2) /100WBC D-Dimer High Sensitivty NG/ML Sodium 140 (135-145) mmol/L Potassium 3.5 (3.3-5.1) mmol/L Chloride 106 (96-108) mmol/L Carbon Dioxide 22 (22-29) mmol/L Anion Gap 16 (12-20) BUN 4 L (9-16) mg/dL Creatinine 0.68 (0.5-1.4) mg/dL Estim Creat Clear Calc 159.7 Estimated GFR > 60 Random Glucose 103 (60-115) mg/dL Calcium 9.4 (8.4-10.2) mg/dL Total Bilirubin 0.8 (0.0-1.0) mg/dL AST 15 (5-37) U/L ALT 12 (0-40) U/L Alkaline Phosphatase 58 (39-117) U/L Total Creatine Kinase 131 (38-174) U/L Troponin I High Sens 4.4 4.0 (<3.5-35.0) ng/L Total Protein 7.4 (6.5-8.0) g/dL Albumin 4.4 (3.5-5.0) g/dL Lipase 11 (8-78) U/L Urine Color Yellow Urine Appearance Cloudy Urine pH 7.5 (5.0-9.0) Ur Specific West 1.015 (1.005-1.025) Urine Protein Negative (Neg-Trace) mg/dL Urine Glucose (UA) Negative (Negative) mg/dL Urine Ketones 40 (Negative) mg/dL Urine Blood Trace H (Negative) Urine Nitrite Negative (Negative) Ur Leukocyte Esterase Negative (Negative) Urine RBC 6-10 H (0-2) /HPF Urine WBC 0-5 (0-5) /HPF Ur Squamous Epith Cells 0-2 (0-2) /HPF Urine Bacteria None Seen (None Seen) Hyaline Casts 0-2 (0-2) /LPF Urine Opiates Screen Not Detected (Not Detect) Ur Buprenorphine Scrn Not Detected (Not Detect) ng/mL Ur Oxycodone Screen Not Detected (Not Detect) ng/mL Urine Methadone Screen Not Detected (Not Detect) ng/mL Urine Fentanyl Screen Not Detected (Not Detect) Ur Barbiturates Screen Not Detected (Not Detect) Ur Phencyclidine Scrn Not Detected (Not Detect) Ur Amphetamines Screen Not Detected (Not Detect) U Benzodiazepines Scrn Not Detected (Not Detect) Urine Cocaine Screen Not Detected (Not Detect) U Marijuana (THC) Screen POSITIVE H (Not Detect) Ethyl Alcohol < 10 mg/dL Influenza Type A (PCR) NEGATIVE (Negative) Influenza Type B (PCR) NEGATIVE (Negative) RSV RNA Qual (PCR) NEGATIVE (Negative) SARS-CoV-2 RNA (RT-PCR) NEGATIVE (Negative) 03/22/24 Range/Units 13:40 WBC (4.8-10.8) X10*3/uL RBC (4.60-5.80) X10*6/uL Hgb (14.0-18.0) g/dl Hct (42.0-52.0) % MCV (80.0-98.0) fL MCH (27.0-33.0) pg MCHC (31.0-36.0) g/dl RDW (11.0-16.0) % Plt Count (160-400) X10*3/uL MPV (9.4-12.4) fL Immature Gran % (Auto) (0.0-0.4) % Neut % (Auto) (45-73) % Lymph % (Auto) (20-40) % [place] % (Auto) (2-11) % Eos % (Auto) (0-4) % Baso % (Auto) (0-2) % Lymph # (Auto) (1.2-4.9) X10*3/uL [place] # (Auto) (0.1-1.2) X10*3/uL Eos # (Auto) (0.0-0.4) X10*3/uL Baso # (Auto) (0.0-0.2) X10*3/uL Abs Immat Gran (auto) (0.00-0.03) X10*3/uL Absolute Neuts (auto) (2.0-8.3) x10*3/uL Absolute Nucleated RBC (0.0-0.012) X10*3/uL Nucleated RBC % (auto) (0.0-0.2) /100WBC D-Dimer High Sensitivty 253 NG/ML Sodium (135-145) mmol/L Potassium (3.3-5.1) mmol/L Chloride (96-108) mmol/L Carbon Dioxide (22-29) mmol/L Anion Gap (12-20) BUN (9-16) mg/dL Creatinine (0.5-1.4) mg/dL Estim Creat Clear Calc Estimated GFR Random Glucose (60-115) mg/dL Calcium (8.4-10.2) mg/dL Total Bilirubin (0.0-1.0) mg/dL AST (5-37) U/L ALT (0-40) U/L Alkaline Phosphatase (39-117) U/L Total Creatine Kinase (38-174) U/L Troponin I High Sens (<3.5-35.0) ng/L Total Protein (6.5-8.0) g/dL Albumin (3.5-5.0) g/dL Lipase (8-78) U/L Urine Color Urine Appearance Urine pH (5.0-9.0) Ur Specific West (1.005-1.025) Urine Protein (Neg-Trace) mg/dL Urine Glucose (UA) (Negative) mg/dL Urine Ketones (Negative) mg/dL Urine Blood (Negative) Urine Nitrite (Negative) Ur Leukocyte Esterase (Negative) Urine RBC (0-2) /HPF Urine WBC (0-5) /HPF Ur Squamous Epith Cells (0-2) /HPF Urine Bacteria (None Seen) Hyaline Casts (0-2) /LPF Urine Opiates Screen (Not Detect) Ur Buprenorphine Scrn (Not Detect) ng/mL Ur Oxycodone Screen (Not Detect) ng/mL Urine Methadone Screen (Not Detect) ng/mL Urine Fentanyl Screen (Not Detect) Ur Barbiturates Screen (Not Detect) Ur Phencyclidine Scrn (Not Detect) Ur Amphetamines Screen (Not Detect) U Benzodiazepines Scrn (Not Detect) Urine Cocaine Screen (Not Detect) U Marijuana (THC) Screen (Not Detect) Ethyl Alcohol mg/dL Influenza Type A (PCR) (Negative) Influenza Type B (PCR) (Negative) RSV RNA Qual (PCR) (Negative) SARS-CoV-2 RNA (RT-PCR) (Negative) Independent Interpretation I performed an independent interpretation of an: EKG, Plain X-Ray and CT Scan Interpretation: EKG with normal sinus rhythm at a rate 90 beats per minute, QT 348, QTC 425, no acute ischemic changes or ST elevations. Chest x-ray without infiltrate or consolidation to suggest, agree with radiologist's interpretation CTA chest without VTE, agree with radiologist's interpretation. Radiology Impression Discussion of test interpretation with radiology: I have reviewed the radiologist's reading. Radiologist Impression: EXAMINATION: XR CHEST CLINICAL INFORMATION: Chest pain after colonoscopy COMPARISON: None available. TECHNIQUE: 2 views of the chest were obtained. FINDINGS: No significant abnormality is noted involving the heart, lungs, mediastinum, bony thorax or soft tissues. No free air is seen beneath the diaphragm. XR/XR chest 2V IMPRESSION: Unremarkable examination. EXAMINATION: CT ANGIOGRAM OF THE CHEST WITH AND WITHOUT CONTRAST (CT PULMONARY ANGIOGRAM FOR PE) CLINICAL INFORMATION: Reason for Exam elevated dimer, ro VTE COMPARISON: CXR from 03/22/2024 TECHNIQUE: Prior to contrast administration, noncontrast localization images were obtained. Subsequently, multidetector volumetric imaging was performed from the thoracic inlet to below the diaphragms following the administration of 65 mL Omnipaque 350 intravenous contrast. No contrast reaction reported. Sagittal, coronal, and MIP oblique sagittal reformatted images were obtained on the CT workstation, uploaded to PACS, and reviewed. This CT examination was performed using dose optimization techniques as appropriate, variously including the following: *Automated exposure control *Adjustment of mA and/or kV according to patient size (this includes techniques or standardized protocols for targeted exams where dose is matched to indication/reason for exam; i.e. extremities or head) *Use of iterative reconstruction technique DLP: Total exam dose-length product 228 mGy-cm FINDINGS: LUNGS AND PLEURA: Lungs are well expanded and without evidence of acute disease. No pulmonary edema. No consolidation, pleural effusion or pneumothorax. QUALITY OF STUDY/CONTRAST BOLUS: Satisfactory. PULMONARY ARTERIES: The pulmonary arteries are normal in size. No embolic filling defects within the main, lobar or segmental vessels. OTHER CARDIOVASCULAR: The heart size is normal. No pericardial effusion. Thoracic aorta is normal. The great vessels arising from the aortic arch are widely patent. MEDIASTINUM: No mediastinal mass. The esophagus has normal wall thickness. LYMPHATICS: No pathologic sized axillary, hilar or mediastinal lymph nodes. UPPER ABDOMEN: The adrenal glands are normal. No acute findings in the visualized portion of the upper abdomen. OSSEOUS STRUCTURES: No acute or suspicious osseous abnormality. CT/CT angio chest PE protocol IMPRESSION: No acute pulmonary disease. No evidence of pulmonary embolism. Independent Historian Clinical information obtained from an independent historian. History obtained from or confirmed by: Parent (dad) External Record Review External record reviewed: Inpatient record, Office record, Outpatient record, Prior outpatient labs, Prior outpatient radiology, Primary care record and Outside ED record Prescription Management I considered prescription management with: Pain Medication and Other (zofran) Social Determinants Patient?s care significantly limited by Social Determinants of Health including: Alcoholism and drug addiction in family and Other Social Determinant of Health Critical Care Time Critical Care Time Critical Care Time: No Discharge Plan Discharge Clinical Impression: Atypical chest pain Patient Disposition: Home, Self-Care Instructions: Chest Pain (ED) Additional Instructions: Your work up today is very reassuring. Your EKG is normal. Your chest xray is normal. Your urine is negative for infection. The CT scan of your chest does not demonstrate clot. Your blood work was sent to the lab to test for lyme and other tick bourne pathology. You will be called with any positive results and will be treated at that time if warranted. Protonix has been sent to your pharmacy for you to take for acid reflux. You may take this daily. Flexeril has been sent to your pharmacy for you to take for muscle pain. Make sure you are staying hydrated. Keep your follow up appointments with your outpatient providers as scheduled. If you develop new or worsening symptoms call 911 or come back to the ER for further evaluation. Prescriptions: New cyclobenzaprine 5 mg tablet 5 mg PO Q8H PRN (Reason: muscle pain) Qty: 10 0RF pantoprazole [Protonix] 20 mg tablet,delayed release (DR/EC) 20 mg PO BEDTIME 28 Days Qty: 28 0RF No Action hydroxyzine HCl 25 mg tablet 25 mg PO BEDTIME Qty: 90 1RF hydrocortisone 2.5 % cream with perineal applicator 1 appl VA BID 30 Days Qty: 30 2RF docusate sodium [Stool Softener] 100 mg capsule 100 mg PO BID Qty: 30 0RF ondansetron 4 mg tablet,disintegrating 4 mg PO Q8H PRN (Reason: nausea and vomiting) Qty: 10 0RF ondansetron 4 mg tablet,disintegrating 4 mg PO Q8H PRN (Reason: nausea and vomiting) Qty: 20 0RF sennosides [Natural Senna Laxative] 8.6 mg tablet 17.2 mg PO BEDTIME Qty: 60 3RF famotidine 40 mg tablet 40 mg PO BEDTIME Qty: 30 3RF pantoprazole 40 mg tablet,delayed release (DR/EC) 40 mg PO DAILY Qty: 30 2RF Rx Instructions: take one tablet half an hour before breakfast diclofenac sodium 50 mg tablet,delayed release (DR/EC) 50 mg PO BID PRN Patient Comments: From Lyme disease. Interventions: ED Discharge Assessment Last Done: 03/22/24 17:23 Discharge Date/Time: 03/22/24 17:24 Print Language: Green[place]ic
[2024-03-22 10:21] LABS: Alanine Aminotransferase 12 U/L (0-40); Albumin Level 4.4 g/dL (3.5-5.0); Alkaline Phosphatase 58 U/L (39-117); Anion Gap 16 (12-20); Aspartate Amino Transferase 15 U/L (5-37); Bilirubin Total 0.8 mg/dL (0.0-1.0); Blood Urea Nitrogen 4 mg/dL (9-16); Calcium 9.4 mg/dL (8.4-10.2); Carbon Dioxide 22 mmol/L (22-29); Chloride 106 mmol/L (96-108); Creatinine Clr Calc Pharmacy 159.7; Estimated Glomerular Filt Rate > 60; Glucose Random 103 mg/dL (60-115); Potassium 3.5 mmol/L (3.3-5.1); Sodium 140 mmol/L (135-145); Total Protein 7.4 g/dL (6.5-8.0)
[2024-03-22 10:25] LABS: Appearance Urine Cloudy; Color Urine Yellow; Glucose Urine UA Negative (Negative); Leukocyte Esterase Urine Negative (Negative); Nitrite Urine Negative (Negative); PH 7.5 (5.0-9.0); Specific Gravity - Urine 1.015 (1.005-1.025); UMIC TRIGGER UACC YES; Urine Blood Trace (Negative); Urine Ketones 40 mg/dL (Negative); Urine Protein Negative (Neg-Trace)
[2024-03-22 10:26] LABS: Troponin-I High Sensitivity 4.4 ng/L (<3.5-35.0)
[2024-03-22] MEDS: 0.9 % Sodium Chloride 1,000 ML 999 ML IV (10:27)
[2024-03-22 10:30] LABS: Amphetamine Screen Urine Not Detected (Not Detect); Barbiturates, Urine Not Detected (Not Detect); Benzodiazepines Screen Urine Not Detected (Not Detect); Buprenorphine Scr Not Detected (Not Detect); Cannabinoid Screen Urine POSITIVE (Not Detect); Cocaine Screen Urine Not Detected (Not Detect); Fentanyl, urine Not Detected (Not Detect); Methadone Screen, Urine Not Detected (Not Detect); Opiate Screen Urine Not Detected (Not Detect); Oxycodone Screen Urine Not Detected (Not Detect); Phencyclidine Screen Urine Not Detected (Not Detect)
[2024-03-22 10:31] LABS: Bacteria Urine None Seen (None Seen); Hyaline Casts Urine 0-2 /LPF (0-2); Squamous Epithelial Cell Urine 0-2 /HPF (0-2); WBC Urine 0-5 /HPF (0-5)
[2024-03-22] MEDS: droPERidol 5 MG/2 ML VIAL 0.625 MG IVPUSH (10:35)
--- NOTE | 2024-03-22 10:39 | PC.NURSE ---
patient a&ox3, iv inserted, labs drawn, urine obtained-blanca was added, nub card tender applied-nsr on monitor, ekg previously documented, cxr performed, pt stating he has 8/10 general body aches and mid sternal chest pain. pt states he formally drank often but has not drank or smoked marijuana since well before his colonoscopy. pt ivf running per order, pt medicated per order, call fleming within reach, family at bedside, will continue to monitor
[2024-03-22 10:41] LABS: Influenza A PCR NEGATIVE (Negative); Influenza B PCR NEGATIVE (Negative); Resp Syncy Virus RNA Qual PCR NEGATIVE (Negative); SARS COV2 PCR INHOUSE NEGATIVE (Negative)
[2024-03-22] MEDS: Acetaminophen 325 MG TABLET 975 MG PO (10:57)
--- NOTE | 2024-03-22 10:59 | PC.NURSE ---
pt medicated with tylenol for 8/10 pain per order
[2024-03-22 11:25] LABS: Ethanol < 10 mg/dL
--- NOTE | 2024-03-22 11:51 | PC.NURSE ---
pt a&ox3, ambulating with steady gait to bathroom, manager cardiac nsr, pt still c/o 05/12 generalized boy aches, will notify provider, family at bedside, call fleming within reach, will continue to monitor
[2024-03-22 12:00] VITALS: BP 161/113; PULSE 94; TEMP 36.6; O2SAT 99
[2024-03-22 12:31] VITALS: BP 140/85; RESP 16
[2024-03-22] MEDS: Morphine Sulfate 4 MG/ML CARTRIDGE IVPUSH (12:31)
--- NOTE | 2024-03-22 12:34 | PC.NURSE ---
pt medicated with morphine for continued 05/12 generalized pain
[2024-03-22 13:54] LABS: D Dimer High Sensitivity 253 NG/ML
[2024-03-22] MEDS: Cyclobenzaprine HCl 10 MG TABLET PO (14:45)
[2024-03-22] MEDS: iohexoL 350 MG/ML 100 ML INFUS..BTL 65 ML IV (15:21)
[2024-03-22 17:23] VITALS: BP 151/78; PULSE 96; RESP 18; TEMP 36.8; O2SAT 99
[2024-03-23 17:53] LABS: Lyme Abs Screen <0.90 index
[2024-03-24 03:13] LABS: A. Phagocytphilium DNA,RT-PCR NOT DETECTED (NOT DETECTED); Babesia Microti DNA, RT-PCR NOT DETECTED (NOT DETECTED); Borrelia Miyamotoi,DNA RT-PCR NOT DETECTED (NOT DETECTED); E.Chaffeensis DNA RT-PCR NOT DETECTED (NOT DETECTED); Lyme(Borrelia ssp)DNA RT-PCR NOT DETECTED (NOT DETECTED)
== END 2024-03-22 17:24 | disposition home or self-care (01) ==
PROVIDERS: Physician Assistant Medical; Emergency Provider Emergency Medicine
DX: R07.89 Other chest pain (principal); M79.10 Myalgia, unspecified site; F12.90 Cannabis use, unspecified, uncomplicated; Z87.891 Personal history of nicotine dependence; Z03.818 Encounter for observation for suspected exposure to other biological agents ruled out
CPT/HCPCS: 0241U; 36415; 71046; 71275; 80053; 80307; 81001; 82550; 83690; 84484; 85025; 85379; 86617; 86618; 87468; 87469; 87478; 87484; 87798; 93005; 96361; 96374; 96375; 99284; 99285; J1790; J2270; Q9967

== ENCOUNTER → 2024-03-22 09:17 | Outpatient (BNV) | payer OTHER, SELFPAY | PROVIDERS: Emergency Provider Emergency Medicine; Visit Provider Internal Medicine Cardiovascular Disease | DX: R07.9 Chest pain, unspecified (principal) | CPT/HCPCS: 93010 ==

== ENCOUNTER 2024-03-26 16:15 | Outpatient (AMB) | payer OTHER, SELFPAY ==
--- NOTE | 2024-03-26 16:19 | A.OFFVIS_ITS ---
Vital Signs 03/26/24 16:25 Height 5 ft 3 in Weight 180 lb 5.41 oz BMI 31.9 BP 132/84 Blood Pressure Location Rt brachial Position Sitting Pulse 102 H Pulse Source Pulse Oximeter Pulse Oximetry (%) 97 Oxygen Delivery Method Room Air Intake Visit Reasons: ER follow up Intake Note: Morales presents to the office today for an urgent follow up post ED admission. CC; Morales has been seen multiple times over the course of the last week for chest pain, abdominal pain, and body aches. Pt was given multiple PRN medications for treatment of sx. Pt also reports having dysphagia sx and tremors. Pt is also reporting having difficulty with BM since having the colo s.p. Pt is very concerned about the combination of sx and the possibility for gastroparesis. Pt states that his sx are slightly better than they were post colo s.p. However, they are still causing him severe discomfort. Telegraph Mechanic Required: No Accompanied by: Family/Other Allergies No Known Allergies Allergy (Verified 03/26/24 16:19) HPI HPI ER follow up: Details: LAST VISIT Cyclical vomiting Constipation Postprandial epigastric pain Postprandial abdominal bloating GERD (gastroesophageal reflux disease) Rectal bleed Diarrhea Plan Patient will be sent for colonoscopy. No family history of colorectal cancer. Rectal bleed every time he has a bowel movement. No issues with anesthesia in the past. No history of sleep apnea. Not on any anticoagulation medication. Patient denies any melena. Acid reflux suppressed with PPI and H2 ignacio. Patient was encouraged to avoid dietary triggers and late night snacking. I will see him after the procedure, sooner on as needed basis. He is agreeable to this plan and verbalizes understanding of instructions. He was given the opportunity to ask questions and all questions answered. ? Thank you for allowing me to participate in his care Medications New bisacodyl (Dulcolax (bisacodyl)) take 4 tabs at noon the day before your colonoscopy 20 mg (4 x 5 mg) PO ONCE 1 day 4 tabs 0RF constipation Z12.11 sennosides (Natural Senna Laxative) 17.2 mg (2 x 8.6 mg) PO BEDTIME 60 tabs 3RF constipation K59.00 polyethylene glycol 3350 (Miralax) As directed by gastroenterology department at [facility] 238 grams PO ONCE 238 grams 0RF Z12.11 Refilled famotidine 40 mg PO BEDTIME 30 tabs 3RF K21.9 pantoprazole take one tablet half an hour before breakfast 40 mg PO DAILY 30 tabs 2RF K21.9 COLONOSCOPY Findings: Terminal Ileum: Distal 10 cm was examined and appeared normal Cecum: Normal Ascending Colon: Normal Transverse Colon: Normal Descending Colon: Normal Sigmoid Colon: Normal Rectum: Normal Ano-rectum: Moderate non-bleeding internal hemorrhoids Colon preparation: Good after some irrigation. Sulphur Bowel Preparation Scale Right colon; 2 Transverse colon: 2 Left colon; 2 (0 = Unprepared colon segment with mucosa not seen due to solid stool that cannot be cleared. 1 = Portion of mucosa of the colon segment seen, but other areas of the colon segment not well seen due to staining, residual stool and/or opaque liquid. 2 = Minor amount of residual staining, small fragments of stool and/or opaque liquid, but mucosa of colon segment seen well. 3 = Entire mucosa of colon segment seen well with no residual staining, small fragments of stool or opaque liquid) Impression and Post Procedure Diagnosis: Colonoscopy Findings: No polyps were detected Random biopsies were obtained from the right and left colon to check for microscopic colitis Moderate hemorrhoids on retroflexed exam - rectal bleeding likely from hemorrhoids. No other source was detected during colonoscopy. Plan: Repeat Colonoscopy in 20 years if biopsies are normal Above findings were reviewed with the patient and his Dad and a handout on Hemorrhoids was given in the discharge area. Pt was prescribed hydrocortisone cream 2.5% for hemorrhoids and advised to continue taking a stool softener for constipation. PATHOLOGY RESULTS Diagnosis A. Colon, random right, biopsy: Colonic mucosa within normal limits; negative for active, chronic or microscopic colitis. B. Colon, random left, biopsy: Colonic mucosa within normal limits; negative for active, chronic or microscopic colitis. ED VISIT Medical Decision Making MDM Narrative: 24 year old male with pmhx significant for cyclical vomiting, colonoscopy on 03/19/[address] Copeland only significant for hemorrhoids presents to the ED today for evaluation of substernal chest pain, back pain, and myalgias x4 days. Vital signs stable, afebrile. He is nontoxic appearing in no acute distress. appears slightly uncomfortable on bed. Abdomen is soft, nondistended, nontender to palpation, no rebound tenderness or guarding. Negative Rovsing sign. Negative McBurney point tenderness. Negative Cabrera's sign. No CVAT bilaterally. No midline spinous tenderness or step-off deformity. 2+ patellar DTRs intact. Ambulating with steady gait. No joint effusion. No calf tenderness bilaterally. No obvious rashes. Skin warm, dry, intact. TODAY'S VISIT Patient is here today for follow-up recent ED visit as well as to discuss his colonoscopy. Patient is accompanied by his father. After colonoscopy patient was seen in the ER immediately few hours later reporting abdominal pain and discomfort. Patient was re-evaluated by Dr. Copeland in the ER and was found to have no acute processes. Colonoscopy was normal did not show any polyps. Colon ic mucosa normal without colitis. Patient admits to smoking marijuana few days before seen in the ER. Symptoms of abdominal pain, epigastric pain and inability to have a bowel movement. However patient is moving his bowels better now. Patient is taking Colace and senna, however he does not feel like he moves his bowels completely PFSH Medical History Lyme disease Anxiety Cyclical vomiting Surgical History H/O shoulder surgery Family History Mother Substance use disorder Sister Substance use disorder Sister Substance use disorder Maternal Aunt Breast cancer Paternal Grandmother Lung cancer Social History Housing: House Alcohol intake: former Patient Tobacco Use Status: Former Tobacco user Tobacco use type: Cigarette e-Cigarette/Vaping Use: Former Use Substance Use Type: Marijuana service: No Current occupational status: employed Cognitive needs: No Hearing needs: No Vision needs: No Review of Systems Const Denies weight gain and Denies weight loss ENT Reports no additional complaints, Denies dysphagia and Denies odynophagia Card Reports no additional complaints Resp Reports no additional complaints GI Reports abdominal pain, Denies belching, Denies melena, Denies bloating, Reports constipation, Denies dysphagia, Denies excessive flatus, Denies dyspepsia, Reports heartburn (Occasional), Denies diarrhea, Denies loose stools, Denies nausea, Denies odynophagia and Denies vomiting Reports no additional complaints Musc Reports no additional complaints Neuro Reports no additional complaints Psych Reports no additional complaints Endo Reports no additional complaints Physical Exam Vital Signs: Last Vital Signs Pulse 102 H 03/26/24 16:25 BP 132/84 03/26/24 16:25 Pulse Ox 97 03/26/24 16:25 Oxygen Delivery Method Room Air 03/26/24 16:25 BMI result Body Mass Index 31.9 Const General: healthy appearing, no acute distress and well developed Nutritional Appearance: obese Orientation/consciousness: patient oriented x3 Resp Effort & Inspection: normal respiratory effort, able to speak in complete sentences, no tracheal deviation and symmetric chest movement Auscultation: clear to auscultation bilaterally Cardio Rate: regular rate GI Inspection: Yes normal to inspection, No distended and Yes obesity Palpation (GI): Soft to palpation, not firm, nontender and No hepatosplenomegaly present Auscultation: normal bowel sounds General: Yes no CVA tenderness Back/Spine/Pelvis Back: no CVA tenderness Skin General skin exam: elasticity normal, turgor normal and dry skin Neuro General: patient oriented x3 Psych Appearance: grossly normal Mental Status: mental status grossly normal Assessment & Plan Assessment & Plan (1) Hemorrhoids, internal, with bleeding: Code(s): K64.8 - Other hemorrhoids Category: Medical (2) Cyclical vomiting: Code(s): R11.15 - Cyclical vomiting syndrome unrelated to migraine Category: Medical (3) Constipation: Code(s): K59.00 - Constipation, unspecified Category: Medical Qualifiers: Constipation type: slow transit constipation Qualified Code(s): K59.01 - Slow transit constipation (4) Abdominal pain: Code(s): R10.9 - Unspecified abdominal pain Qualifiers: Abdominal location: generalized Qualified Code(s): R10.84 - Generalized abdominal pain Plan Patient will continue taking stool softener and Dulcolax to help her move his bowels. Patient was encouraged to stop smoking marijuana. Patient can take famotidine on as needed basis and stop taking pantoprazole. Avoid dietary triggers and late night snacking. Staying upright for minimum 3 hours after meals discussed with patient. Colonoscopy in 20 years, sooner if clinically necessary. Patient will return in the office in 3 months, sooner on as needed basis. He is agreeable to this plan and verbalizes understanding of instructions. He was given the opportunity to ask questions and all questions answered. Thank you for allowing me to participate in his care Medications: New bisacodyl (Dulcolax (bisacodyl)) 10 mg (2 x 5 mg) PO BEDTIME 180 tabs 4RF Discontinued pantoprazole Discontinued Reason: Doctor's Order 20 mg PO BEDTIME 4 weeks 28 tabs 0RF sennosides Discontinued Reason: Doctor's Order 17.2 mg (2 x 8.6 mg) PO BEDTIME 60 tabs 3RF constipation K59.00 - Constipation, unspecified Coding Level of Care Code Est Pt Level 4 (45573) Diagnoses Hemorrhoids, internal, with bleeding K64.8 Cyclical vomiting R11.15 Slow transit constipation K59.01 Constipation type: slow transit constipation Generalized abdominal pain R10.84 Abdominal location: generalized Time Spent (min) 35 Comment 20 minutes spent with patient and additional 15 minutes spent reviewing his re cords
[2024-03-26 16:25] VITALS: BP 132/84; PULSE 102; O2SAT 97; BMI 31.9
== END 2024-03-26 16:45 | disposition home or self-care (01) ==
PROVIDERS: Visit Provider Nurse Practitioner Family
DX: K64.8 Other hemorrhoids (principal); R11.15 Cyclical vomiting syndrome unrelated to migraine; K59.01 Slow transit constipation; R10.84 Generalized abdominal pain
CPT/HCPCS: 99214

== ENCOUNTER → 2024-03-26 16:15 | Outpatient (BNVA) | payer OTHER, SELFPAY | PROVIDERS: Visit Provider Nurse Practitioner Family | DX: K64.8 Other hemorrhoids (principal); R11.15 Cyclical vomiting syndrome unrelated to migraine; K59.01 Slow transit constipation; R10.84 Generalized abdominal pain; Z98.890 Other specified postprocedural states | CPT/HCPCS: 99212 ==

== ENCOUNTER 2024-07-24 10:45 | Outpatient (AMB) | payer OTHER, SELFPAY ==
--- NOTE | 2024-07-24 11:06 | AM.OFFWIN_ITS ---
Intake Vital Signs 07/24/24 11:10 Height 5 ft 3 in Weight 186 lb BMI 32.9 BP 112/76 Blood Pressure Location Rt brachial Position Sitting Pulse 80 Pulse Source Pulse Oximeter Pulse Oximetry (%) 98 Oxygen Delivery Method Room Air Intake Visit Reasons: EP cough, congested, sore throat Intake Note: Patient here for cough and fatigue for about 1 month. Patient Tobacco Use Status: Former Tobacco user Allergies No Known Allergies Allergy (Verified 07/24/24 11:10) Do you need a note to return to daycare/school/sports/work: Yes HPI HPI Comments History of Present Illness Details This is a 24-year-old male with past medical history of gastroesophageal reflux disease presenting for evaluation of a nocturnal cough and sinus pressure that he has had with an occasional sore throat for the past 1 month. Patient reports fatigue likely related to his nocturnal cough. Patient denies having any fevers, chills, otalgia, shortness of breath or chest pain. Patient comes for evaluation because his states his symptoms have not resolved. He has not taken any medication for treatment of his symptoms. [facility] Medical History Lyme disease Anxiety Cyclical vomiting Surgical History H/O shoulder surgery Family History Mother Substance use disorder Sister Substance use disorder Sister Substance use disorder Maternal Aunt Breast cancer Paternal Grandmother Lung cancer Social History Housing: House Alcohol intake: former Patient Tobacco Use Status: Former Tobacco user Tobacco use type: Cigarette e-Cigarette/Vaping Use: Former Use Substance Use Type: Marijuana service: No Current occupational status: employed Cognitive needs: No Hearing needs: No Vision needs: No Review of Systems Const All systems reviewed & are unremarkable except as noted in HPI and below Denies chills, Denies fever(s) and Reports malaise ENT Reports no additional complaints, Reports sore throat (intermittent) and Denies throat swelling Card Reports as per HPI Resp Reports as per HPI, Denies chest congestion, Reports cough (nocturnal) and Denies wheezing GI Reports as per HPI Musc Reports no additional complaints Skin/Breast Reports system reviewed and no additional complaints, except as documented Neuro Reports no additional complaints Endo Reports no additional complaints Aller/Immun Denies throat swelling and Denies wheezing Physical Exam Vital Signs: Last Vital Signs Pulse 80 07/24/24 11:10 BP 112/76 07/24/24 11:10 Pulse Ox 98 07/24/24 11:10 Oxygen Delivery Method Room Air 07/24/24 11:10 BMI result Body Mass Index 32.9 Const General: cooperative, healthy appearing, comfortable, no acute distress, well developed, alert, awake and Physically active; No acute distress Nutritional Appearance: average body habitus Orientation/consciousness: patient oriented x3 Limitations: no limitations HEENT Head: Yes normal to inspection Ears: hearing grossly normal bilaterally, TM normal on the right, left TM ab normal (bulging, no erythema or fluid level noted), EAC's normal and mastoids normal General nose exam: Normal external nose present Face and sinus: Yes normal facial exam, Yes sinuses nontender and Yes face symmetric Mouth: Normal oral and palatal mucosa present and moist mucous membranes Teeth and gingiva: dentition normal Throat: Yes posterior oropharynx normal, Yes tonsils normal and Yes uvula midline Eyes General: appearance normal, both eyes and all related structures Visual Forrester: normal visual ofrrester by confrontation Alignment and Position: alignment normal Periorbital: periorbital findings normal Eyelids: Yes eyelids normal Conjunctivae: conjunctivae normal Sclerae: sclerae normal Corneas: corneas normal Pupils: Equal, round and reactive pupils present EOM: EOMs intact bilaterally Neck Lymphatic: no lymphadenopathy noted Resp Effort & Inspection: normal respiratory effort, able to speak in complete sentences, no audible wheezes, no cough and no respiratory distress Auscultation: clear to auscultation bilaterally Cardio Rate: regular rate Rhythm: regular rhythm Neuro General: patient oriented x3 Cranial nerves: Yes Equal, round and reactive pupils present Psych Appearance: grossly normal Mental Status: mental status grossly normal Insight: Good insight present (Psych) Judgement: Good judgement present (Psych) Assessment & Plan Assessment & Plan (1) Allergic rhinitis: Comment: There is no evidence of an otitis media or bacterial sinusitis. Patient is provided guidance regarding allergic rhinitis will be discharged with loratadine and fluticasone nasal spray. Code(s): J30.9 - Allergic rhinitis, unspecified Qualifiers: Allergic rhinitis seasonality: seasonal Allergic rhinitis trigger: pollen Qualified Code(s): J30.1 - Allergic rhinitis due to pollen Plan: Use loratadine once daily for the next month and fluticasone nasal spray 1 spray in each nostril daily. Patient is encouraged to follow up with his primary care provider in 7-10 days if his symptoms are not improving. Medications: New fluticasone propionate 50 mcg/actuation administer into each nostril 1 spray intranasal DAILY 16 grams 1RF loratadine (Allergy Relief (loratadine)) 10 mg PO DAILY 30 tabs 0RF Coding Level of Care Code Est Pt Level 3 (33117) Diagnoses Seasonal allergic rhinitis due to pollen J30.1 Allergic rhinitis seasonality: seasonal Allergic rhinitis trigger: pollen Time Spent (min) 20
[2024-07-24 11:10] VITALS: BP 112/76; PULSE 80; O2SAT 98; BMI 32.9
== END 2024-07-24 11:50 | disposition home or self-care (01) ==
PROVIDERS: Visit Provider Physician Assistant
DX: J30.1 Allergic rhinitis due to pollen (principal)

== ENCOUNTER → 2024-07-24 10:45 | Outpatient (BNVA) | payer OTHER, SELFPAY | PROVIDERS: Visit Provider Physician Assistant | DX: J30.1 Allergic rhinitis due to pollen (principal) | CPT/HCPCS: 99212 ==

== ENCOUNTER 2025-01-31 07:39 | Emergency (ER) | payer OTHER, SELFPAY ==
[2025-01-31 07:46] VITALS: BP 140/74; PULSE 100; PULSE 93; RESP 20; TEMP 36.7; O2SAT 95; BMI 29.0
--- NOTE | 2025-01-31 08:22 | ED_ITS ---
HPI - General Adult General Chief complaint: General Medical Stated complaint: LLQ PAIN THIS AM W/BLOODY DIARRHEA PER EMS Time Seen by Provider: 01/31/25 08:20 Source: patient Mode of arrival: ambulatory Limitations: no limitations History of Present Illness HPI narrative: This is a 25-year-old man with a past medical history of hemorrhoids, Lyme disease, anxiety, cyclical vomiting, history of shoulder surgery who was brought in by ambulance for evaluation of hematochezia. Patient states that he woke up this morning, went to use the restroom and noticed bright red blood in the toilet bowl when attempting to have a bowel movement. Patient states history of hemorrhoidal bleeding in the past. Patient states he had more bleeding and then in the past. He states he felt lightheaded at that time. He states no syncope. He states no associated chest pain or dyspnea. He states no abdominal pain, rectal pain or melena. He states taking no blood thinning medications. He reports feeling well at this time. He states that he does follow with gastroenterology and had a colonoscopy last year. He states that he did not have his hemorrhoids removed at that time. He otherwise states having regular bowel movements and no bloody stools. He states no associated nausea, vomiting or hematemesis. He states no excessive alcohol or NSAID/salicylate use. Related Data Previous Rx's ?Medication ?Instructions ?Recorded ondansetron 4 mg disintegrating 4 mg PO Q8H PRN nausea and 03/21/24 tablet vomiting #10 tabs famotidine 40 mg tablet 40 mg PO BEDTIME #30 tabs 06/28/24 pantoprazole 40 mg tablet,delayed 40 mg PO DAILY #30 tabs 06/28/24 release fluticasone propionate 50 1 spray intranasal DAILY #16 grams 07/24/24 mcg/actuation nasal spray,suspension loratadine 10 mg tablet (Allergy 10 mg PO DAILY #30 tabs 07/24/24 Relief (loratadine)) Allergies Allergy/AdvReac Type Severity Reaction Status Date / Time No Known Allergies Allergy Verified 01/31/25 07:49 Review of Systems 2 Review of Systems: ROS as per HPI [facility] Past Medical History Medical History Lyme disease Anxiety Cyclical vomiting Surgical History H/O shoulder surgery Family History Family History Mother Substance use disorder Sister Substance use disorder Sister Substance use disorder Maternal Aunt Breast cancer Paternal Grandmother Lung cancer Social History Social History Housing: House Alcohol intake: former Patient Tobacco Use Status: Former Tobacco user Tobacco use type: Cigarette e-Cigarette/Vaping Use: Former Use Substance Use Type: Marijuana Advance Directives: No Advance Directives Information Provided: No service: No Current occupational status: employed Cognitive needs: No Hearing needs: No Vision needs: No Physical Exam ED Vital Signs: Vital Signs - 24 hr 01/31/25 07:46 01/31/25 08:52 Temperature 98.0 F 98.0 F Pulse Rate 93 99 Respiratory Rate 20 20 Blood Pressure 140/74 H 114/68 Pulse Oximetry 95 98 Oxygen Delivery Method Room Air Room Air BMI result Body Mass Index 29.0 Gen: NAD, AOx3 HEENT: NCAT, EOMI, normal conjunctiva CV: RRR Pulm: CTAB, no increased work of breathing GI: Soft, NTND, no rebound, guarding or rigidity Neuro: Grossly non focal Medications Administered Discontinued Medications Generic Name Dose Route Start Last Admin Trade Name Freq PRN Reason Stop Dose Admin Sodium Chloride 1,000 mls @ 999 mls/hr 01/31/25 08:30 01/31/25 08:31 Ns IV 01/31/25 09:30 999 mls/hr .Q1H1M [facility] Administration Medical Decision Making Medical Decision Making MDM Narrative: Differential diagnosis includes, but is not limited to hemorrhoids, polyp, colitis, diverticulitis. Patient is afebrile and hemodynamically stable on room air. Shock index reassuring, low suspicion for occult shock. Exam is benign and reassuring. I reviewed previous CT imaging of the abdomen and pelvis with IV contrast from November 07, 2023, which demonstrated unremarkable small and large bowel (no evidence of diverticulosis). I reviewed colonoscopy from Dr. Copeland March 19, 2024, which noted moderate nonbleeding internal hemorrhoids. Given previous imaging and known history of hemorrhoids, I suspect that this is the etiology of the patient's symptoms. Reassuring abdominal examination and the patient's history stating no pain, I have very low clinical suspicion for colitis or diverticulitis otherwise. No polyps detected on previous colonoscopy in March 19, 2024, so this is of lower clinical suspicion as well. On re-examination, patient is well-appearing and in no acute distress. ?Patient states symptoms have resolved. ?There is no indication for further emergent evaluation in this otherwise well-appearing patient as above. ?Patient is provided written and verbal instructions, educational materials, recommendations for outpatient follow-up, general surgery referral, strict return precautions and teach back is performed. ?Patient states understanding and agreement with plan of care. ?Patient is discharged home in stable and improved condition. Admission/Observation Consideration of admission/observation: Escalation of care including admission/observation considered Lab Data MDM Lab Attestation statement: I reviewed the patient's lab results. The labs demonstrate leukocytosis at 11.1, which I suspect is reactive in nature. Hemoglobin stable at 14.5 (previous 13.8). Otherwise metabolic panel is unremarkable. BUN/creatinine ratio is not suggestive of upper GI bleed and neither is the patient's history of hematochezia. 01/31/25 08:39 01/31/25 08:39 Labs: Lab Results 01/31/25 Range/Units 08:39 WBC 11.1 H (4.8-10.8) X10*3/uL RBC 5.06 (4.60-5.80) X10*6/uL Hgb 14.5 (14.0-18.0) g/dl Hct 42.9 (42.0-52.0) % MCV 84.8 (80.0-98.0) fL MCH 28.7 (27.0-33.0) pg MCHC 33.8 (31.0-36.0) g/dl RDW 12.7 (11.0-16.0) % Plt Count 231 D (160-400) X10*3/uL MPV 10.8 (9.4-12.4) fL Immature Gran % (Auto) 0.5 H (0.0-0.4) % Neut % (Auto) 75.8 H (45-73) % Lymph % (Auto) 13.2 L (20-40) % [place] % (Auto) 8.0 (2-11) % Eos % (Auto) 2.2 (0-4) % Baso % (Auto) 0.3 (0-2) % Lymph # (Auto) 1.5 (1.2-4.9) X10*3/uL [place] # (Auto) 0.9 (0.1-1.2) X10*3/uL Eos # (Auto) 0.2 (0.0-0.4) X10*3/uL Baso # (Auto) 0.0 (0.0-0.2) X10*3/uL Abs Immat Gran (auto) 0.05 H (0.00-0.03) X10*3/uL Absolute Neuts (auto) 8.4 H (2.0-8.3) x10*3/uL Absolute Nucleated RBC 0.000 (0.0-0.012) X10*3/uL Nucleated RBC % (auto) 0.0 (0.0-0.2) /100WBC Sodium 143 (135-145) mmol/L Potassium 4.3 D (3.3-5.1) mmol/L Chloride 110 H (96-108) mmol/L Carbon Dioxide 22 (22-29) mmol/L Anion Gap 15 (12-20) BUN 9 (9-16) mg/dL Creatinine 0.71 (0.5-1.4) mg/dL Estim Creat Clear Calc 156.7 Estimated GFR > 60 Random Glucose 106 (60-115) mg/dL Calcium 10.0 D (8.4-10.2) mg/dL Total Bilirubin 0.3 (0.0-1.0) mg/dL AST 30 (5-37) U/L ALT 23 (0-40) U/L Alkaline Phosphatase 74 (39-117) U/L Total Protein 7.5 (6.5-8.0) g/dL Albumin 4.6 (3.5-5.0) g/dL Discharge Plan Discharge Clinical Impression: Hemorrhoids, internal, with bleeding Patient Disposition: Home, Self-Care Instructions: Hemorrhoids (ED) Additional Instructions: You were seen and evaluated in the emergency room. Your vital signs and blood work were very reassuring. Please follow up with Gastroenterology in the next 1 week. Call today to schedule your appointment. You are given a referral to follow up with General Surgery. Stanley call today to schedule a follow up appointment in the next 1-2 weeks. Return to the emergency room with any new concerns or symptoms. Prescriptions: No Action famotidine 40 mg tablet 40 mg PO BEDTIME Qty: 30 3RF pantoprazole 40 mg tablet,delayed release (DR/EC) 40 mg PO DAILY Qty: 30 2RF Rx Instructions: take one tablet half an hour before breakfast ondansetron 4 mg tablet,disintegrating 4 mg PO Q8H PRN (Reason: nausea and vomiting) Qty: 10 0RF fluticasone propionate 50 mcg/actuation spray,suspension 1 spray intranasal DAILY Qty: 16 1RF Rx Instructions: administer into each nostril loratadine [Allergy Relief (loratadine)] 10 mg tablet 10 mg PO DAILY Qty: 30 0RF Referrals: [facility] General Surgeons [Provider Group] Bailey Butler, DIORAMIST-BC [Nurse Practitioner] - Print Language: Eritrean
[2025-01-31] MEDS: 0.9 % Sodium Chloride 1,000 ML 999 ML IV (08:31)
[2025-01-31 08:49] LABS: MANUAL DIFF FLAG NO
[2025-01-31 08:52] VITALS: BP 114/68; PULSE 99; RESP 20; TEMP 36.7; O2SAT 98
[2025-01-31 08:59] LABS: Basophils Percent Auto 0.3 % (0-2); Eosinophils Absolute Auto 0.2 X10*3/uL (0.0-0.4); Eosinophils Percent Auto 2.2 % (0-4); Hematocrit 42.9 % (42.0-52.0); Hemoglobin 14.5 g/dl (14.0-18.0); Imm Gran Abs Auto 0.05 X10*3/uL (0.00-0.03); Imm Gran Pct Auto 0.5 % (0.0-0.4); Lymphocytes Absolute Auto 1.5 X10*3/uL (1.2-4.9); Lymphocytes Percent Auto 13.2 % (20-40); Mean Corpuscular HGB Conc 33.8 g/dl (31.0-36.0); Mean Corpuscular Hemoglobin 28.7 pg (27.0-33.0); Mean Corpuscular Volume 84.8 fL (80.0-98.0); Mean Platelet Volume 10.8 fL (9.4-12.4); Monocytes Absolute Auto 0.9 X10*3/uL (0.1-1.2); Neutrophils Absolute Auto 8.4 x10*3/uL (2.0-8.3); Neutrophils Percent Auto 75.8 % (45-73); Platelet Count 231 X10*3/uL (160-400); Red Blood Count 5.06 X10*6/uL (4.60-5.80); Red Cell Distribution Width 12.7 % (11.0-16.0); White Blood Count 11.1 X10*3/uL (4.8-10.8)
[2025-01-31 09:08] LABS: Alanine Aminotransferase 23 U/L (0-40); Albumin Level 4.6 g/dL (3.5-5.0); Alkaline Phosphatase 74 U/L (39-117); Anion Gap 15 (12-20); Aspartate Amino Transferase 30 U/L (5-37); Bilirubin Total 0.3 mg/dL (0.0-1.0); Blood Urea Nitrogen 9 mg/dL (9-16); Carbon Dioxide 22 mmol/L (22-29); Chloride 110 mmol/L (96-108); Creatinine Clr Calc Pharmacy 156.7; Estimated Glomerular Filt Rate > 60; Glucose Random 106 mg/dL (60-115); Potassium 4.3 mmol/L (3.3-5.1); Sodium 143 mmol/L (135-145); Total Protein 7.5 g/dL (6.5-8.0)
[2025-01-31 10:49] VITALS: BP 114/68; PULSE 99; RESP 20; TEMP 36.7; O2SAT 98
== END 2025-01-31 10:50 | disposition home or self-care (01) ==
PROVIDERS: Emergency Provider Emergency Medicine
DX: K64.8 Other hemorrhoids (principal); R10.32 Left lower quadrant pain; R42 Dizziness and giddiness; R11.10 Vomiting, unspecified; Z79.899 Other long term (current) drug therapy; Z87.891 Personal history of nicotine dependence
CPT/HCPCS: 36415; 80053; 85025; 86850; 86900; 86901; 96360; 99284

== ENCOUNTER 2025-02-22 11:09 | Outpatient (AMB) | payer OTHER, SELFPAY ==
--- NOTE | 2025-02-22 11:15 | AM.OFFWIN_ITS ---
Intake Vital Signs 02/22/25 11:44 Weight 182 lb 8 oz BP 120/80 Blood Pressure Location Rt brachial Position Sitting Pulse 88 Pulse Source Pulse Oximeter Pulse Oximetry (%) 98 Oxygen Delivery Method Room Air Intake Visit Reasons: EP pain around rib area Intake Note: Patient here for left sided mid back pain and rib pain that started today after working outside with wood. Patient Tobacco Use Status: Former Tobacco user Allergies No Known Allergies Allergy (Verified 02/22/25 11:45) Do you need a note to return to daycare/school/sports/work: Yes HPI HPI Comments History of Present Illness Details 25 y/o Male patient who presents to the walk in clinic with c/o left sided mid back pain and rib pain that started today after working outside with wood. He was chopping nich[place] with a chainsaw when started feeling the pain. Describes the pain as Pressure Like pain that starts left upper/mid chest radiating to the left Upper mid chest. Reports pain aggravated with breathing in/out but denies SOB or wheezing. [facility] Medical History (Updated 02/22/25 @ 12:28 by Gail Best NP) Chest wall muscle strain Lyme disease Anxiety Cyclical vomiting Surgical History H/O shoulder surgery Family History Mother Substance use disorder Sister Substance use disorder Sister Substance use disorder Maternal Aunt Breast cancer Paternal Grandmother Lung cancer Social History Housing: House Alcohol intake: former Patient Tobacco Use Status: Former Tobacco user Tobacco use type: Cigarette e-Cigarette/Vaping Use: Former Use Substance Use Type: Marijuana service: No Current occupational status: employed Cognitive needs: No Hearing needs: No Vision needs: No Review of Systems Const All systems reviewed & are unremarkable except as noted in HPI and below Physical Exam Vital Signs: Last Vital Signs Pulse 88 02/22/25 11:44 BP 120/80 02/22/25 11:44 Pulse Ox 98 02/22/25 11:44 Oxygen Delivery Method Room Air 02/22/25 11:44 Const General: no acute distress Nutritional Appearance: well nourished Orientation/consciousness: patient oriented x3 Chest Chest palpation & inspection: no crepitus, localized rib tenderness with anteroposterior compression, no masses and tenderness pectoral muscle on the left diffusely and sternoclavicular joint Resp Effort & Inspection: normal respiratory effort and able to speak in complete sentences Auscultation: clear to auscultation bilaterally, no crackles, no rales, no rhonchi and no wheezes Cardio Rhythm: regular rhythm Heart sounds: S1 normal heart sound present and S2 normal heart sound present Neuro General: patient oriented x3 Assessment & Plan Assessment & Plan (1) Chest wall muscle strain: Code(s): S29.011A - Strain of muscle and tendon of front wall of thorax, initial encounter Qualifiers: Encounter type: initial encounter Qualified Code(s): S29.011A - Strain of muscle and tendon of front wall of thorax, initial encounter Plan: Patient has Muscle Strain from Chopping Wood. Ordered NSAIDs Rest and Apply Ice/Hot Ordered Flexeril Medications: New ibuprofen 800 mg PO Q8H 30 tabs 0RF 10 days S29.011A - Strain of muscle and tendon of front wall of thorax, initial encounter cyclobenzaprine 10 mg PO BEDTIME 14 tabs 0RF S29.011A - Strain of muscle and tendon of front wall of thorax, initial encounter Coding Level of Care Code Est Pt Level 4 (84842) Diagnoses Muscle strain of chest wall, initial encounter S29.011A Encounter type: initial encounter Time Spent (min) 20
[2025-02-22 11:44] VITALS: BP 120/80; PULSE 88; O2SAT 98
== END 2025-02-22 12:36 | disposition home or self-care (01) ==
PROVIDERS: Visit Provider Nurse Practitioner Family
DX: S29.011A Strain of muscle and tendon of front wall of thorax, initial encounter (principal)

== ENCOUNTER → 2025-02-22 11:09 | Outpatient (BNVA) | payer OTHER, SELFPAY | PROVIDERS: Visit Provider Nurse Practitioner Family | DX: S29.011A Strain of muscle and tendon of front wall of thorax, initial encounter (principal) | CPT/HCPCS: 99212 ==

== ENCOUNTER 2025-04-04 19:14 | Emergency (ER) | payer OTHER, SELFPAY ==
[2025-04-04 19:27] VITALS: BP 140/82; BP 142/83; PULSE 91; PULSE 92; RESP 15; TEMP 36.7; O2SAT 100; O2SAT 97; BMI 31.9
[2025-04-04 19:38] VITALS: BP 142/83; PULSE 85; RESP 22; TEMP 36.6; O2SAT 96; BMI 31.9
--- NOTE | 2025-04-04 19:38 | ECG_ITS ---
Test Reason : QT ASSESS Blood Pressure : */* mmHG Vent. Rate : 77 BPM Atrial Rate : 77 BPM P-R Int : 148 ms QRS Dur : 94 ms QT Int : 376 ms P-R-T Axes : 72 50 41 degrees QTcB Int : 425 ms Normal sinus rhythm Normal ECG When compared with ECG of 22-Mar-2024 09:17, No significant change was found Referred By: Ezra Abbott Electronically Signed By: RAVINDER ALFARO MD
--- NOTE | 2025-04-04 19:57 | ED_ITS ---
HPI - Nausea/Vomiting/Diarrhea General Chief complaint: Nausea/Vomiting/Diarrhea Stated complaint: Vomiting after smoking cannabis Time Seen by Provider: 04/04/25 19:38 History of Present Illness ED Provider: Ezra Abbott MD HPI Narrative: This is a 25-year-old male who presents with vomiting. Patient has daily twice per day marijuana use chronically he has had multiple episodes similar to today with epigastric pain repeated nonbloody nonbilious vomiting. Reports he is ?cutting down ?on marijuana smoke. No lower abdominal pain no subjective fever. Denies trauma. Related Data Previous Rx's ?Medication ?Instructions ?Recorded famotidine 40 mg tablet 40 mg PO BEDTIME #30 tabs cyclobenzaprine 10 mg tablet 10 mg PO BEDTIME #14 tabs 02/22/25 ibuprofen 800 mg tablet 800 mg PO Q8H 10 days #30 ta bs 02/22/25 metoclopramide HCl 10 mg tablet 10 mg PO Q6H PRN nause a and 04/04/25 vomiting #7 tabs Allergies Allergy/AdvReac Type Severity Reaction Status Date / Time No Known Allergies Allergy Verified 04/04/25 19:30 [facility] Past Medical History Medical History (Updated 04/04/25 @ 20:04 by Ezra Abbott MD) Chest wall muscle strain Lyme disease Anxiety Cyclical vomiting Surgical History H/O shoulder surgery Family History Family History Mother Substance use disorder Sister Substance use disorder Sister Substance use disorder Maternal Aunt Breast cancer Paternal Grandmother Lung cancer Social History Social History Housing: House Alcohol intake: former Patient Tobacco Use Status: Former Tobacco user Tobacco use type: Cigarette Smoked in Last 30 Days: Yes e-Cigarette/Vaping Use: Former Use Substance Use Type: Marijuana Substance Use Frequency: Chronic Longstanding Last Used Substance: Just Prior to Admission Any prior treatment program specific to substance use: No Advance Directives: No Advance Directives Information Provided: No Do you have a plan to hurt others: No Plan service: No Current occupational status: employed Cognitive needs: No Hearing needs: No Vision needs: No Physical Exam 2 Vital Signs: Vital Signs: Last Vital Signs Temp 97.8 F 04/04/25 19:38 Pulse 85 04/04/25 19:38 Resp 22 H 04/04/25 19:38 BP 142/83 H 04/04/25 19:38 Pulse Ox 96 04/04/25 19:38 O2 Del Method Room Air 04/04/25 19:38 BMI result Body Mass Index 31.9 Const: Other: EXAM: Gen: Alert, appears uncomfortable dry/dehydrated. He is oriented no severe distress Head: Atraumatic Eyes: Anicteric, Normal conjunctiva. ENT: Moist mucosa, no pallor. ? Neck: Supple. Skin: ?No observable rash or bruising on exposed or examined skin Respiratory: Breathing comfortably, No distress.Clear to auscultation bilaterally, symmetric chest expansion, No wheeze, rales, ronchi. Cardiovascular: Regular rate and rhythm. No murmurs or rub. Well perfused periphery, warm extremities. No edema. ? Abdominal: Mild midepigastric tenderness. Soft, no objective distension. No palpable masses or obvious organomegaly. ?No guarding, no rebound tenderness or other peritoneal findings. Negative Cabrera's sign : No flank tenderness. Neuro: Alert. Gross movement of all extremities intact. ? Psych: . Slightly anxious MSK: No grossly visible deformity. Vital signs: See flowsheet Medical Decision Making Medical Decision Making MDM Narrative: Medical Decision Makin-year-old male with chronic cannabis use with likely recurrent epigastric pain nonbloody nonbilious nausea vomiting from cannabis use/hyperemesis cannabis. No trauma. No rigidity or peritoneal signs of the abdominal exam. Lab work generally reassuring and non actionable. At this time I do not see any indication for imaging. We will try symptomatic relief and IV hydration. Testing Interpreted Independently: ECG sinus rhythm rate 77, QTC 4-5. No acute ischemic changes normal intervals and axis. Radiology or Lab testing Results Reviewed: Lab review nonspecific leukocytosis 14.5. Hemoglobin 13.1 around the his baseline over the last month or so. Consults: Not Applicable Independent Historians/External Chart Reviews: Not Applicable Social Determinants of Health Impacting MDM/Planning: Substance use disorder. Lab Data 04/04/25 20:38 04/04/25 20:38 Labs: Lab Results 07/03/25 Range/Units 20:38 WBC 14.5 H (4.8-10.8) X10*3/uL RBC 4.49 L (4.60-5.80) X10*6/uL Hgb 13.1 L (14.0-18.0) g/dl Hct 36.6 L (42.0-52.0) % MCV 81.5 (80.0-98.0) fL MCH 29.2 (27.0-33.0) pg MCHC 35.8 (31.0-36.0) g/dl RDW 12.5 (11.0-16.0) % Plt Count 214 (160-400) X10*3/uL MPV 10.8 (9.4-12.4) fL Immature Gran % (Auto) 0.4 (0.0-0.4) % Neut % (Auto) 89.0 H (45-73) % Lymph % (Auto) 6.1 L (20-40) % [place] % (Auto) 4.4 (2-11) % Eos % (Auto) 0.0 (0-4) % Baso % (Auto) 0.1 (0-2) % Lymph # (Auto) 0.9 L (1.2-4.9) X10*3/uL [place] # (Auto) 0.6 (0.1-1.2) X10*3/uL Eos # (Auto) 0.0 (0.0-0.4) X10*3/uL Baso # (Auto) 0.0 (0.0-0.2) X10*3/uL Abs Immat Gran (auto) 0.06 H (0.00-0.03) X10*3/uL Absolute Neuts (auto) 12.9 H (2.0-8.3) x10*3/uL Absolute Nucleated RBC 0.000 (0.0-0.012) X10*3/uL Nucleated RBC % (auto) 0.0 (0.0-0.2) /100WBC Discharge Plan Discharge Clinical Impression: Cannabis hyperemesis syndrome concurrent with and due to cannabis abuse Patient Disposition: Home, Self-Care Instructions: Cannabis Use Disorder (ED) Additional Instructions: _ DISCHARGE DIAGNOSES: Cannabis use disorder with hyperemesis condition of repeated cyclical episodes of vomiting attributed to heavy and regular marijuana use we strongly recommend you slow down or stop this use immediately HISTORY OF PRESENTATION: ?Vomiting after marijuana use EMERGENCY DEPARTMENT COURSE,TESTS, TREATMENTS: While in the ED today you had basic lab work you were given ondansetron a nausea medicine DISCHARGE MEDICATIONS: ?[We have made no changes to your regular medication regimen] FOLLOW-UP: ?Call your primary or general physician soon as possible to discuss your symptoms, your ED visit and to discuss follow up plans Call for follow up with Gastroenterology or your primary doctor INSTRUCTIONS ?& RETURN PRECAUTIONS: If any symptoms change first call your primary physician, if it is after-hours your primary doctors office should have a provider maintenance and operations supervisor you can speak with. If the symptoms are severe or very concerning to you then call 911 or return to the ED. Ezra Abbott MD Emergency Physician [facility] Prescriptions: New metoclopramide HCl 10 mg tablet 10 mg PO Q6H PRN (Reason: nausea and vomiting) Qty: 7 0RF No Action famotidine 40 mg tablet 40 mg PO BEDTIME Qty: 30 3RF ibuprofen 800 mg tablet 800 mg PO Q8H 10 Days Qty: 30 0RF cyclobenzaprine 10 mg tablet 10 mg PO BEDTIME Qty: 14 0RF Print Language: Uz[place]
[2025-04-04 20:42] LABS: MANUAL DIFF FLAG NO
[2025-04-04 20:43] LABS: Hematocrit 36.6 % (42.0-52.0); Hemoglobin 13.1 g/dl (14.0-18.0); Imm Gran Abs Auto 0.06 X10*3/uL (0.00-0.03); Imm Gran Pct Auto 0.4 % (0.0-0.4); Lymphocytes Absolute Auto 0.9 X10*3/uL (1.2-4.9); Mean Corpuscular HGB Conc 35.8 g/dl (31.0-36.0); Mean Corpuscular Hemoglobin 29.2 pg (27.0-33.0); Mean Corpuscular Volume 81.5 fL (80.0-98.0); NRBC Abs Auto 0.000 X10*3/uL (0.0-0.012); NRBC Pct Auto 0.0 /100WBC (0.0-0.2); Platelet Count 214 X10*3/uL (160-400); Red Blood Count 4.49 X10*6/uL (4.60-5.80); White Blood Count 14.5 X10*3/uL (4.8-10.8)
[2025-04-04 20:56] LABS: Alanine Aminotransferase 13 U/L (0-40); Albumin Level 5.0 g/dL (3.5-5.0); Alkaline Phosphatase 69 U/L (39-117); Anion Gap 17 (12-20); Aspartate Amino Transferase 22 U/L (5-37); Blood Urea Nitrogen 7 mg/dL (9-16); Calcium 9.2 mg/dL (8.4-10.2); Carbon Dioxide 18 mmol/L (22-29); Chloride 108 mmol/L (96-108); Creatinine Clr Calc Pharmacy 145.6; Estimated Glomerular Filt Rate > 60; Lipase 7 U/L (8-78); Potassium 3.6 mmol/L (3.3-5.1); Sodium 139 mmol/L (135-145); Total Protein 7.5 g/dL (6.5-8.0)
[2025-04-04] MEDS: diazePAM 10 MG/2 ML CARTRIDGE 5 MG IVPUSH (21:22)
[2025-04-04] MEDS: Lactated Ringers 1,000 ML 999 ML IV (21:26)
[2025-04-04 22:22] VITALS: BP 108/46; PULSE 71; RESP 16; TEMP 36.1; O2SAT 98
[2025-04-04 22:42] VITALS: BP 108/46; PULSE 71; RESP 16; TEMP 36.1; O2SAT 98
== END 2025-04-04 22:44 | disposition home or self-care (01) ==
PROVIDERS: Emergency Provider Emergency Medicine; PCP Nurse Practitioner Family
DX: F12.10 Cannabis abuse, uncomplicated (principal); R11.2 Nausea with vomiting, unspecified; Z87.891 Personal history of nicotine dependence; Z79.899 Other long term (current) drug therapy
CPT/HCPCS: 36415; 80053; 83690; 85025; 93005; 96374; 96375; 99284; J1790; J2470; J3360; J7120

== ENCOUNTER → 2025-04-04 19:38 | Outpatient (BNV) | payer OTHER, SELFPAY | PROVIDERS: Emergency Provider Emergency Medicine; PCP Nurse Practitioner Family; Visit Provider Internal Medicine Cardiovascular Disease | DX: Z13.6 Encounter for screening for cardiovascular disorders (principal) | CPT/HCPCS: 93010 ==

== ENCOUNTER 2025-04-29 15:36 | Emergency (ER) | payer MEDICAID, SELFPAY ==
--- NOTE | ~2025-04-29 | XR_ITS ---
EXAMINATION: XR LUMBOSACRAL SPINE CLINICAL INFORMATION: Right sided pain radiating down leg COMPARISON: None available. TECHNIQUE: Three views of the lumbosacral spine. FINDINGS: There are 5 nonrib-bearing lumbar segments. Vertebral body height and alignment is preserved. Disc spaces are preserved. XR/XR lumbar spine 2-3V IMPRESSION: Unremarkable lumbar spine. Electronically signed by: Dilan Hidalgo MD 04/29/2025 04:11 PM EDT
[2025-04-29 15:48] VITALS: BP 143/63; PULSE 85; RESP 18; TEMP 36.8; O2SAT 95; BMI 30.5
--- NOTE | 2025-04-29 15:48 | ED.GENADULT ---
HPI - General Adult General Chief complaint: Back Pain/Injury Stated complaint: lower back pain Time Seen by Provider: 04/29/25 16:19 Source: patient, RN notes reviewed and old records reviewed Mode of arrival: ambulatory Limitations: no limitations History of Present Illness ED Provider: Sintia HPI narrative: Patient is a 25-year-old male presenting with atraumatic right lower back pain radiating down right leg for two weeks. Denies saddle anesthesia, bowel or bladder incontinence. Denies recent fevers, history of IVDU. States pain worsened after moving some firewood on Tuesday. MD complaint: Back pain Onset (ago): week(s) Related Data Previous Rx's ?Medication ?Instructions ?Recorded cyclobenzaprine 10 mg tablet 10 mg PO BEDTIME #14 tabs 02/22/25 ibuprofen 800 mg tablet 800 mg PO Q8H 10 days #30 tabs 02/22/25 metoclopramide HCl 10 mg tablet 10 mg PO Q6H PRN nausea and 04/04/25 vomiting #7 tabs famotidine 40 mg tablet 40 mg PO BEDTIME #90 tabs 04/08/25 lidocaine 5 % topical patch 1 patch topical DAILY #15 ea 04/29/25 naproxen 500 mg tablet 500 mg PO BID #14 tabs 04/29/25 prednisone 20 mg tablet 40 mg (2 x 20 mg) PO DAILY #14 tabs 04/29/25 Allergies Allergy/AdvReac Type Severity Reaction Status Date / Time No Known Allergies Allergy Verified 04/29/25 15:51 Review of Systems Review of Systems: As per HPI Yes all other systems are reviewed and are negative Constitutional: Constitutional: Reports as per HPI [facility] Past Medical History Medical History (Updated 04/29/25 @ 16:20 by Yolanda Patricio, NANCY) Chest wall muscle strain Lyme disease Anxiety Cyclical vomiting Surgical History H/O shoulder surgery Family History Family History Mother Substance use disorder Sister Substance use disorder Sister Substance use disorder Maternal Aunt Breast cancer Paternal Grandmother Lung cancer Social History Social History Housing: House Alcohol intake: former Patient Tobacco Use Status: Former Tobacco user Tobacco use type: Cigarette e-Cigarette/Vaping Use: Former Use Substance Use Type: Marijuana Advance Directives: No Advance Directives Information Provided: No service: No Current occupational status: employed Cognitive needs: No Hearing needs: No Vision needs: No Physical Exam ED Vital Signs: Vital Signs - 24 hr 04/29/25 15:48 Temperature 98.2 F Pulse Rate 85 Respiratory Rate 18 Blood Pressure 143/63 H Pulse Oximetry 95 Oxygen Delivery Method Room Air BMI result Body Mass Index 30.5 Vital signs have been reviewed and appear to be correct. Blood pressure normal. Heart rate normal. Respiratory rate normal. Temperature normal. Oxygen saturation normal. Const General: cooperative, healthy appearing and no acute distress Orientation/consciousness: oriented to person, oriented to place, oriented to time and patient oriented x3 Limitations: no limitations HENMT Head: Yes normocephalic and Yes atraumatic Ears: external ears normal General nose exam: Normal external nose present Face and sinus: Yes face symmetric Mouth: oropharynx normal and moist mucous membranes Throat: Yes uvula midline Eyes Pupils: Equal, round and reactive pupils present Neck Neck: Yes normal visual inspection and Yes supple Resp Effort & Inspection: normal respiratory effort and able to speak in complete sentences Auscultation: clear to auscultation bilaterally Cardio Rate: regular rate Rhythm: regular rhythm Heart sounds: S1 normal heart sound present and S2 normal heart sound present GI Palpation (GI): Soft to palpation and nontender Auscultation: normoactive bowel sounds General: Yes no CVA tenderness Back/Spine/Pelvis Back: no CVA tenderness Thoracic/Lumbar Spine: thoracic and lumbar spine normal to inspection, thoraco-lumbar ROM normal, straight leg raise negative bilaterally, pain with thoraco-lumbar ROM, paraspinal muscle tenderness on the right in the lower lumbar, No thoracic spinal tenderness and lumbar spinal tenderness at L4 and at L5 Skin General skin exam: elasticity normal and turgor normal Neuro General: oriented to person, oriented to place, oriented to time, patient oriented x3, gait normal, tone normal, moves all extremities, Normal light touch and pain sensation, no focal motor deficits, CN's II-XI intact bilaterally and deep tendon reflexes 2+ bilaterally Cranial nerves: Yes Equal, round and reactive pupils present Cognition (Neuro): normal cognition Motor exam (neuro): 5/5 motor strength present throughout, Normal motor muscle tone present throughout and Motor abnormalities not present Extrem General: Yes full ROM, Yes no pedal edema and Yes no calf tenderness Psych Mental Status: mental status grossly normal Affect: normal affect Thought process: Normal thought process present Course Course Course Narrative: This is a rapid medical exam performed by Aminah Patricio NP: Additional HPI, ROS, PE not included below will be deferred to primary provider. Patient is a 25-year-old male presenting with atraumatic right lower back pain radiating down right leg. Denies saddle anesthesia, bowel or bladder incontinence. Plan: xray Medical Decision Making Medical Decision Making [facility] Narrative: Patient is a 25-year-old male presenting with atraumatic right lower back pain radiating down right leg for two weeks. On exam patient is awake, A+Ox3, VS WNL, afebrile, normal neurological exam without focal deficits, physical exam findings as above. Given reported symptoms and physical exam findings, initial differential includes but is not limited to initial differential includes lumbar strain, lumbar radiculopathy, degenerative disc disease, disc herniation, spinal stenosis, spondylosis. Less likely vertebral fracture. Do not suspect malignancy/mass, SEA, cauda equina/cord compression. X-ray lumbar spine unremarkable. My interpretation is in agreement with the radiologist's interpretation. Results discussed with patient and all questions answered. Physical exam findings consistent with lumbar radiculopathy. Will treat with naproxen, prednisone, lidocaine patches. Discussed with patient that if symptoms do not improve he should follow up with PCP as he may require referral to physical therapy. Return precautions discussed. Patient verbalized understanding of and agreement with plan. Differential Diagnosis Differential Diagnoses: The differential diagnosis associated with the presentation includes As per [facility] Admission/Observation Consideration of admission/observation: Escalation of care including admission/observation considered Patient would have been admitted to the hospital had their clinical presentation warranted hospital admission. Independent Interpretation I performed an independent interpretation of an: Plain X-Ray Interpretation: X-ray lumbar spine unremarkable Radiology Impression Discussion of test interpretation with radiology: I have reviewed the radiologist's reading. Radiologist Impression: XR/XR lumbar spine 2-3V IMPRESSION: Unremarkable lumbar spine. External Record Review External record reviewed: Inpatient record, Office record and Outpatient record Prescription Management I considered prescription management with: Pain Medication and Other Discharge Plan Discharge Clinical Impression: Lumbar radiculopathy Patient Disposition: Home, Self-Care Instructions: Lumbar Radiculopathy (ED) Additional Instructions: You were evaluated in the emergency department today for lower back pain. This is likely due to an inflammation of the sciatic nerve with runs from the lower back down both legs. You are being prescribed a course of prednisone which is a steroid to decrease inflammation. You are also being prescribed naproxen which is an anti-inflammatory medication. You have been prescribed 5% topical lidocaine patches which you can wear for up to 12 hours in a 24 hour period. Do not apply heat directly over the patches. Use all medications as prescribed. Please schedule an appointment for follow-up with your primary care physician this week for further evaluation of your symptoms. Return to the emergency department if you experience worsening back pain, difficulty walking, fevers, numbness, tingling, incontinence, groin numbness or tingling, or any other concerning symptoms. Prescriptions: New prednisone 20 mg tablet 40 mg PO DAILY Qty: 14 0RF lidocaine 5 % adhesive patch,medicated 1 patch topical DAILY Qty: 15 0RF Rx Instructions: leave on most painful area for up to 12 hrs naproxen 500 mg tablet 500 mg PO BID Qty: 14 0RF No Action famotidine 40 mg tablet 40 mg PO BEDTIME Qty: 90 1RF metoclopramide HCl 10 mg tablet 10 mg PO Q6H PRN (Reason: nausea and vomiting) Qty: 7 0RF ibuprofen 800 mg tablet 800 mg PO Q8H 10 Days Qty: 30 0RF cyclobenzaprine 10 mg tablet 10 mg PO BEDTIME Qty: 14 0RF Stand Alone Forms: Work/School Release Print Language: Tajik
[2025-04-29 16:41] VITALS: BP 143/63; PULSE 85; RESP 18; TEMP 36.8; O2SAT 95
== END 2025-04-29 16:42 | disposition home or self-care (01) ==
PROVIDERS: Emergency Provider Emergency Medicine Emergency Medical Services
DX: M54.16 Radiculopathy, lumbar region (principal)
CPT/HCPCS: 72100; 99282; 99283

== ENCOUNTER → 2025-04-29 15:50 | Outpatient (BNV) | payer MEDICAID, SELFPAY | PROVIDERS: Emergency Provider Emergency Medicine Emergency Medical Services; Visit Provider Radiology Diagnostic Radiology | DX: M54.31 Sciatica, right side (principal) | CPT/HCPCS: 72100 ==

== ENCOUNTER 2025-05-01 05:45 | Emergency (ER) | payer MEDICAID, SELFPAY ==
[2025-05-01 05:49] VITALS: BP 127/66; BP 140/86; PULSE 89; PULSE 97; RESP 22; TEMP 36.7; O2SAT 100; O2SAT 97; BMI 31.9
[2025-05-01 06:22] LABS: Hematocrit 38.6 % (42.0-52.0); Hemoglobin 13.5 g/dl (14.0-18.0); Imm Gran Abs Auto 0.11 X10*3/uL (0.00-0.03); Imm Gran Pct Auto 0.6 % (0.0-0.4); Lymphocytes Absolute Auto 1.5 X10*3/uL (1.2-4.9); MANUAL DIFF FLAG SCAN; Mean Corpuscular HGB Conc 35.0 g/dl (31.0-36.0); Mean Corpuscular Hemoglobin 28.8 pg (27.0-33.0); Mean Corpuscular Volume 82.3 fL (80.0-98.0); NRBC Abs Auto 0.000 X10*3/uL (0.0-0.012); NRBC Pct Auto 0.0 /100WBC (0.0-0.2); Platelet Count 241 X10*3/uL (160-400); Red Blood Count 4.69 X10*6/uL (4.60-5.80); SCAN SMEAR FLAG 1; White Blood Count 18.3 X10*3/uL (4.8-10.8)
[2025-05-01 06:37] LABS: Alanine Aminotransferase 12 U/L (0-40); Albumin Level 5.0 g/dL (3.5-5.0); Alkaline Phosphatase 68 U/L (39-117); Anion Gap 17 (12-20); Aspartate Amino Transferase 25 U/L (5-37); Blood Urea Nitrogen 11 mg/dL (9-16); Calcium 9.8 mg/dL (8.4-10.2); Carbon Dioxide 23 mmol/L (22-29); Chloride 112 mmol/L (96-108); Creatinine Clr Calc Pharmacy 147.6; Estimated Glomerular Filt Rate > 60; Lipase 6 U/L (8-78); Magnesium 1.5 mg/dL (1.6-2.6); Potassium 3.5 mmol/L (3.3-5.1); Sodium 148 mmol/L (135-145); Total Protein 7.8 g/dL (6.5-8.0)
[2025-05-01 06:59] LABS: Resp Syncy Virus RNA Qual PCR NEGATIVE (Negative); SARS COV2 PCR INHOUSE NEGATIVE (Negative)
--- NOTE | 2025-05-01 07:10 | ED_ITS ---
HPI - General Adult General Chief complaint: Nausea/Vomiting/Diarrhea Stated complaint: NAUSEA/VOMITTING Time Seen by Provider: 05/01/25 07:03 Source: patient and EMS Mode of arrival: EMS Limitations: no limitations History of Present Illness ED Provider: HPI narrative: 25-year-old male, who states he has not smoked marijuana for the past couple of weeks and then smoked a constitution party yesterday and drank alcohol, presenting with dry retching, he denies abdominal pain, states symptoms started 11:00 last night. He reports generalized body aches. No chest pain, no hemoptysis no dyspnea. Related Data Previous Rx's ?Medication ?Instructions ?Recorded cyclobenzaprine 10 mg tablet 10 mg PO BEDTIME #14 tabs 02/22/25 ibuprofen 800 mg tablet 800 mg PO Q8H 10 days #30 ta bs 02/22/25 metoclopramide HCl 10 mg tablet 10 mg PO Q6H PRN nause a and 04/04/25 vomiting #7 tabs famotidine 40 mg tablet 40 mg PO BEDTIME #90 tabs lidocaine 5 % topical patch 1 patch topical DAILY #15 ea 04/29/25 naproxen 500 mg tablet 500 mg PO BID #14 tabs 04/29 prednisone 20 mg tablet 40 mg (2 x 20 mg) PO DAILY # 14 tabs 04/29/25 ondansetron 4 mg disintegrating 4 mg PO Q8H PRN nausea and 05/01/25 tablet vomiting #4 tabs sucralfate 100 mg/mL oral 10 ml PO QID #414 mL 5 suspension (Carafate) Allergies Allergy/AdvReac Type Severity Reaction Status Date / Time No Known Allergies Allergy Verified 05/01/25 05:52 Review of Systems 2 Constitutional: Constitutional: Reports as per HPI [facility] Past Medical History Medical History Chest wall muscle strain Lyme disease Anxiety Cyclical vomiting Surgical History H/O shoulder surgery Family History Family History Mother Substance use disorder Sister Substance use disorder Sister Substance use disorder Maternal Aunt Breast cancer Paternal Grandmother Lung cancer Social History Social History Housing: House Alcohol intake: former Patient Tobacco Use Status: Former Tobacco user Tobacco use type: Cigarette e-Cigarette/Vaping Use: Former Use Substance Use Type: Marijuana Advance Directives: No Do you have a plan to hurt others: No Plan service: No Current occupational status: employed Cognitive needs: No Hearing needs: No Vision needs: No Physical Exam ED Vital Signs: Vital Signs - 24 hr 05/01/25 05:49 Temperature 98.1 F Pulse Rate 89 Respiratory Rate 22 H Blood Pressure 127/66 Pulse Oximetry 97 Oxygen Delivery Method Room Air BMI result Body Mass Index 31.9 Const Other: * Gen: ?Appears of stated age, initially and discomfort, thereafter noted to be moving around the ER * CV: RRR, no obvious murmurs appreciated * Resp: ?No wheezing rales rhonchi no stridor moving air well * Abd: ?Bowel sounds are present, minimal epigastric tenderness no rebound no rigidity * MSK: FROM, strength 5/5 all extremities * Skin: No jaundice * Neuro: ?Alert and oriented x3, moving upper and lower extremities symmetrically, no obvious facial asymmetry noted Medications Administered Generic Name Dose Route Start Last Admin Trade Name Freq PRN Reason Stop Dose Admin Sodium Chloride 1,000 mls @ 999 mls/hr 05/01/25 07:15 05/01/25 07:27 Ns IV 05/01/25 08:15 999 mls/hr .Q1H1M NICANOR Administration Discontinued Medications Generic Name Dose Route Start Last Admin Trade Name Freq PRN Reason Stop Dose Admin Diphenhydramine HCl 25 mg 05/01/25 07:10 05/01/25 07:26 Diphenhydramine Hcl 50 Mg/Ml Vial IVPUSH 05/01/25 07:11 25 mg ONCE ONE Administration Droperidol 0.625 mg 05/01/25 07:10 05/01/25 07:29 Droperidol 5 Mg/2 Ml Vial IVPUSH 05/01/25 07:11 0.625 mg ONCE ONE Administration Famotidine 20 mg 05/01/25 07:10 05/01/25 07:27 Famotidine/Pf 20 Mg/2 Ml Vial IVPUSH 05/01/25 07:11 20 mg ONCE ONE Administration Medical Decision Making Medical Decision Making MDM Narrative: Patient with documented history of cannabis hyperemesis syndrome presenting with dry retching, reports body aches, nonfebrile, benign abdominal exam nothing on exam to suspect appendicitis or colitis, initially discomfort giving fluids and medications, and then was noted to be walking around the ED to the bathroom without any support I did not feel further imaging such as CT or ultrasound is indicated, we will medicate for symptoms, educate, see my discharge instructions Differential Diagnosis Differential Diagnoses: The differential diagnosis associated with the presentation includes (Cholecystitis, pancreatitis, hepatitis, gastritis, cholangitis, choledocholithiasis, cyclic vomiting syndrome, appendicitis, Boerhaave syndrome) Admission/Observation Consideration of admission/observation: Escalation of care including admission/observation considered 2022 Emergency Medicine Coding Guide from [email or web address] on 05/01/2025 All calculations should be rechecked by clinician prior to use RESULT SUMMARY: 4 Estimated Level of Service Problems: Moderate (4) Risk: High (5) Data: Limited (3) NARRATIVE MDM: This patient's problem complexity is Moderate as patient: has an acute illness with systemic symptoms. This patient's risk is High due to: overall presentation requiring evaluation for a potentially High-risk process. This patient's data complexity is Limited. INPUTS: Number and Complexity ?> 6 = 4: acute illness w/systemic sx (f) Risk level ?> 4 = High Tests ordered ?> 1 = 1 Tests results reviewed (excluding labs) ?> 1 = 1 Prior external notes reviewed ?> 0 = 0 Assessment requiring and independent historian ?> 0 = No Independent interpretation of tests ?> 0 = No Discussed management/test interpretation w/external professional ?> 0 = No Lab Data [facility] Lab Attestation statement: I reviewed the patient's lab results. 05/01/25 06:15 05/01/25 06:15 Labs: Lab Results 05/01/25 05/01/25 Range/Units 06:15 06:16 WBC 18.3 H (4.8-10.8) X10*3/uL RBC 4.69 (4.60-5.80) X10*6/uL Hgb 13.5 L (14.0-18.0) g/dl Hct 38.6 L (42.0-52.0) % MCV 82.3 (80.0-98.0) fL MCH 28.8 (27.0-33.0) pg MCHC 35.0 (31.0-36.0) g/dl RDW 13.1 (11.0-16.0) % Plt Count 241 (160-400) X10*3/uL MPV 10.9 (9.4-12.4) fL Immature Gran % (Auto) 0.6 H (0.0-0.4) % Neut % (Auto) 78.5 H (45-73) % Lymph % (Auto) 8.4 L (20-40) % Vigo % (Auto) 12.4 H (2-11) % Eos % (Auto) 0.0 (0-4) % Baso % (Auto) 0.1 (0-2) % Lymph # (Auto) 1.5 (1.2-4.9) X10*3/uL [place]igo # (Auto) 2.3 H (0.1-1.2) X10*3/uL Eos # (Auto) 0.0 (0.0-0.4) X10*3/uL Baso # (Auto) 0.0 (0.0-0.2) X10*3/uL Abs Immat Gran (auto) 0.11 H (0.00-0.03) X10*3/uL Absolute Neuts (auto) 14.4 H (2.0-8.3) x10*3/uL Absolute Nucleated RBC 0.000 (0.0-0.012) X10*3/uL Nucleated RBC % (auto) 0.0 (0.0-0.2) /100WBC Smear Tech's Comments VERIFIED Sodium 148 H (135-145) mmol/L Potassium 3.5 (3.3-5.1) mmol/L Chloride 112 H (96-108) mmol/L Carbon Dioxide 23 (22-29) mmol/L Anion Gap 17 (12-20) BUN 11 (9-16) mg/dL Creatinine 0.71 (0.5-1.4) mg/dL Estim Creat Clear Calc 147.6 Estimated GFR > 60 Random Glucose 138 H (60-115) mg/dL Calcium 9.8 D (8.4-10.2) mg/dL Magnesium 1.5 L (1.6-2.6) mg/dL Total Bilirubin 0.7 (0.0-1.0) mg/dL AST 25 (5-37) U/L ALT 12 (0-40) U/L Alkaline Phosphatase 68 (39-117) U/L Total Protein 7.8 (6.5-8.0) g/dL Albumin 5.0 (3.5-5.0) g/dL Lipase 6 L (8-78) U/L Ethyl Alcohol < 10 mg/dL Influenza Type A (PCR) NEGATIVE (Negative) Influenza Type B (PCR) NEGATIVE (Negative) RSV RNA Qual (PCR) NEGATIVE (Negative) SARS-CoV-2 RNA (RT-PCR) NEGATIVE (Negative) Tests considered The following testing was considered but not selected: CT abdomen and pelvis, ultrasound Discharge Plan Discharge Clinical Impression: Cyclic vomiting syndrome, Cannabis use disorder, severe, dependence Patient Disposition: Home, Self-Care Additional Instructions: Evaluated with nausea, in the setting of alcohol use and marijuana use, marijuana should be completely excluded as well as alcohol from your lifestyle, your stomach is not able to tolerate it, and this has to be long-term over a year to see consistent improvement in his symptoms, your blood work has been reassuring there was no evidence for your being dehydrated, no IV reasons for pancreatitis or any liver pathology your vital signs without any fevers, at home continue using Carafate with meals, make sure you look up and stick to BRAT diet, Zofran as needed for nausea and vomiting. Stay well hydrated. Prescriptions: New sucralfate [Carafate] 100 mg/mL suspension 10 ml PO QID Qty: 414 0RF Rx Instructions: swish in mouth and swallow; use after food/drink ondansetron 4 mg tablet,disintegrating 4 mg PO Q8H PRN (Reason: nausea and vomiting) Qty: 4 0RF No Action famotidine 40 mg tablet 40 mg PO BEDTIME Qty: 90 1RF metoclopramide HCl 10 mg tablet 10 mg PO Q6H PRN (Reason: nausea and vomiting) Qty: 7 0RF prednisone 20 mg tablet 40 mg PO DAILY Qty: 14 0RF lidocaine 5 % adhesive patch,medicated 1 patch topical DAILY Qty: 15 0RF Rx Instructions: leave on most painful area for up to 12 hrs naproxen 500 mg tablet 500 mg PO BID Qty: 14 0RF ibuprofen 800 mg tablet 800 mg PO Q8H 10 Days Qty: 30 0RF cyclobenzaprine 10 mg tablet 10 mg PO BEDTIME Qty: 14 0RF Print Language: Hebrew
[2025-05-01] MEDS: PHENobarb/Hyoscy/Atropine/Scop 10 ML ELIXIR PO (08:28)
[2025-05-01 09:15] VITALS: BP 145/80; PULSE 94; RESP 16; TEMP 37; O2SAT 100
[2025-05-01 09:16] VITALS: BP 145/80; PULSE 94; RESP 16; TEMP 37; O2SAT 100
== END 2025-05-01 09:38 | disposition home or self-care (01) ==
PROVIDERS: Emergency Provider Emergency Medicine
DX: R11.15 Cyclical vomiting syndrome unrelated to migraine (principal); F12.90 Cannabis use, unspecified, uncomplicated; R52 Pain, unspecified
CPT/HCPCS: 36415; 80053; 80307; 83690; 83735; 85025; 87637; 96361; 96374; 96375; 99284; J1200; J1308; J1790